=== PATIENT | male | born 1965 | race Hispanic/Latino ===

== ENCOUNTER 2018-09-20 10:40 | Inpatient (IN) | payer SELFPAY ==
--- NOTE | 2018-09-20 12:19 | XRay Report ---
AP CHEST: HISTORY: Altered mental status No comparison. The lungs are mildly hyperinflated. No evidence for pneumonia, pleural effusion or pneumothorax. Heart size and pulmonary vascularity are within normal limits. The bony thorax is grossly intact. IMPRESSION: Mild hyperinflation. No acute process is appreciated.
[2018-09-20] MEDS ORDERED: NACL 0.9% 1000 ML IV ONE (12:27)
[2018-09-20 12:33] LABS: Basophils % (Auto) 0.2 % (0.0-1.8); Hematocrit 38.9 % (35.5-45.6); Hemoglobin 13.1 gm/dl (11.8-15.2); Lymphocytes # (Auto) 0.9 K/mm3 (1.2-5.4); Lymphocytes % (Auto) 7.5 % (13.4-35.0); Mean Corpuscular HGB Conc 34 % (32-34); Mean Corpuscular Volume 93 fl (84-94); Monocytes # (Auto) 1.2 K/mm3 (0.0-0.8); Monocytes % (Auto) 10.3 % (0.0-7.3); Platelet Count 370 K/mm3 (140-440); Red Blood Count 4.18 M/mm3 (3.65-5.03); Red Cell Distribution Width 13.5 % (13.2-15.2)
[2018-09-20 12:43] LABS: Albumin 4.1 g/dL (3.9-5); BUN/Creatinine Ratio 34; Blood Urea Nitrogen 55 mg/dL (9-20); Calcium 9.5 mg/dL (8.4-10.2); Hemolysis Index 5
[2018-09-20 12:48] LABS: Alanine Aminotransferase < 5 units/L (7-56)
[2018-09-20 12:49] LABS: INR 0.99 (0.87-1.13)
[2018-09-20] MEDS ORDERED: MAXIPIME/NS 2 GM/100 ML 2 GM/100 ML BAG IV SCH (13:00)
[2018-09-20 13:31] LABS: Bacteria,Urine 2+ /HPF (Negative); Bilirubin,Urine NEG (Negative); Blood,Urine NEG (Negative); Color,Urine Amber (Yellow); Mucus,Urine 2+ /HPF; Urobilinogen,Urine < 2.0 mg/dL (<2.0)
[2018-09-20 13:37] LABS: Protein,Urine >2000 mg dL mg/dL (Negative)
[2018-09-20 13:38] LABS: Amphetamine Screen,Urine PRESUMPTIVE NEGATIVE; Benzodiazepines Screen,Urine PRESUMPTIVE NEGATIVE; Cannabinoid Screen,Urine PRESUMPTIVE NEGATIVE; Cocaine Screen,Urine PRESUMPTIVE NEGATIVE; Methadone Screen,Urine PRESUMPTIVE NEGATIVE; Opiate Screen,Urine PRESUMPTIVE NEGATIVE
[2018-09-20] MEDS ORDERED: ATIVAN IV ONE (15:20)
--- NOTE | 2018-09-20 15:49 | Emergency Department Report ---
ED General Adult HPI - General Chief complaint: Altered Mental Status Stated complaint: AMS Time Seen by Provider: 09/20/18 11:54 Source: family, EMS Mode of arrival: Stretcher Limitations: Altered Mental Status - History of Present Illness Initial comments: Patient to emergency department via EMS for altered mental status. The patient's sister states the last 2 days the patient has not been his normal self and has had a fever. She states the patient is a daily drinker and last had something to drink a week ago. The patient is not able to add to the history. -: Gradual Severity scale (0 -10): 0 Consistency: constant Improves with: none Worsens with: none Associated Symptoms: denies other symptoms Treatments Prior to Arrival: none - Related Data Allergies Allergy/AdvReac Type Severity Reaction Status Date / Time No Known Allergies Allergy Unverified 09/20/18 11:27 ED Review of Systems ROS: Stated complaint: AMS Other details as noted in HPI Comment: Unobtainable due to pts medical conditions ED Past Medical Hx - Past Medical History Hx COPD: Yes - Social History Smoking Status: Unknown if ever smoked ED Physical Exam - General Limitations: Altered Mental Status General appearance: obtunded - Head Head exam: Present: atraumatic, normocephalic - Eye Eye exam: Present: normal appearance, PERRL, EOMI - ENT ENT exam: Present: mucous membranes dry - Neck Neck exam: Present: normal inspection - Respiratory Respiratory exam: Present: normal lung sounds bilaterally. Absent: respiratory distress, wheezes, rales - Cardiovascular Cardiovascular Exam: Present: normal rhythm, tachycardia. Absent: systolic murmur, diastolic murmur, rubs, gallop - GI/Abdominal GI/Abdominal exam: Present: soft, normal bowel sounds. Absent: distended, tenderness - Rectal Rectal exam: Present: heme (+) stool - Extremities Exam Extremities exam: Present: normal inspection - Back Exam Back exam: Present: normal inspection - Neurological Exam Neurological exam: Present: other (not able to completely assess due to the patient's condition) - Psychiatric Psychiatric exam: Present: other (not able to assess due to the patient's condition) - Skin Skin exam: Present: warm, dry, intact, normal color. Absent: rash ED Course Vital Signs 09/20/18 12:00 Temperature 96.8 F L Pulse Rate 110 H Respiratory 18 Rate Blood Pressure 129/87 [Right] O2 Sat by Pulse 97 Oximetry ED Medical Decision Making - Lab Data Result diagrams: 09/20/18 12:02 09/20/18 12:02 Lab Results 09/20/18 09/20/18 09/20/18 Range/Units 12:02 12:02 12:02 WBC 12.2 H (4.5-11.0) K/mm3 RBC 4.18 (3.65-5.03) M/mm3 Hgb 13.1 (11.8-15.2) gm/dl Hct 38.9 (35.5-45.6) % MCV 93 (84-94) fl MCH 31 (28-32) pg MCHC 34 (32-34) % RDW 13.5 (13.2-15.2) % Plt Count 370 (140-440) K/mm3 Lymph % (Auto) 7.5 L (13.4-35.0) % [place] % (Auto) 10.3 H (0.0-7.3) % Eos % (Auto) 0.0 (0.0-4.3) % Baso % (Auto) 0.2 (0.0-1.8) % Lymph # 0.9 L (1.2-5.4) K/mm3 [place] # 1.2 H (0.0-0.8) K/mm3 Eos # 0.0 (0.0-0.4) K/mm3 Baso # 0.0 (0.0-0.1) K/mm3 Seg Neutrophils % 82.0 H (40.0-70.0) % Seg Neutrophils # 10.0 H (1.8-7.7) K/mm3 PT 13.7 (12.2-14.9) Sec. INR 0.99 (0.87-1.13) APTT (24.2-36.6) Sec. VBG pH (7.320-7.420) Sodium 135 L (137-145) mmol/L Potassium 4.3 (3.6-5.0) mmol/L Chloride 93.2 L (98-107) mmol/L Carbon Dioxide 21 L (22-30) mmol/L Anion Gap 25 mmol/L BUN 55 H (9-20) mg/dL Creatinine 1.6 H (0.8-1.5) mg/dL Estimated GFR 45 ml/min BUN/Creatinine Ratio 34 % Glucose 157 H (75-100) mg/dL Lactic Acid (0.7-2.0) mmol/L Calcium 9.5 (8.4-10.2) mg/dL Magnesium (1.7-2.3) mg/dL Total Bilirubin 0.60 (0.1-1.2) mg/dL AST 7 (5-40) units/L ALT < 5 L (7-56) units/L Alkaline Phosphatase 62 (35-129) units/L Ammonia (25-60) umol/L Total Creatine Kinase 18 L (55-170) units/L Troponin T < 0.010 (0.00-0.029) ng/mL Total Protein 8.4 H (6.3-8.2) g/dL Albumin 4.1 (3.9-5) g/dL Albumin/Globulin Ratio 1.0 % TSH (0.270-4.200) mlU/mL Urine Color (Yellow) Urine Turbidity (Clear) Urine pH (5.0-7.0) Ur Specific [place] (1.003-1.030) Urine Protein (Negative) mg/dL Urine Glucose (UA) (Negative) mg/dL Urine Ketones (Negative) mg/dL Urine Blood (Negative) Urine Nitrite (Negative) Urine Bilirubin (Negative) Urine Urobilinogen (<2.0) mg/dL Ur Leukocyte Esterase (Negative) Urine WBC (Auto) (0.0-6.0) /HPF Urine RBC (Auto) (0.0-6.0) /HPF U Epithel Cells (Auto) (0-13.0) /HPF Urine Bacteria (Auto) (Negative) /HPF Urine WBC Clumps /HPF Urine Mucus /HPF Salicylates (2.8-20.0) mg/dL Urine Opiates Screen Urine Methadone Screen Acetaminophen (10.0-30.0) ug/mL Ur Barbiturates Screen Ur Phencyclidine Scrn Ur Amphetamines Screen U Benzodiazepines Scrn Urine Cocaine Screen U Marijuana (THC) Screen Drugs of Abuse Note Plasma/Serum Alcohol (0-0.07) % 09/20/18 09/20/18 09/20/18 Range/Units 12:02 12:02 12:02 WBC (4.5-11.0) K/mm3 RBC (3.65-5.03) M/mm3 Hgb (11.8-15.2) gm/dl Hct (35.5-45.6) % MCV (84-94) fl MCH (28-32) pg MCHC (32-34) % RDW (13.2-15.2) % Plt Count (140-440) K/mm3 Lymph % (Auto) (13.4-35.0) % [place] % (Auto) (0.0-7.3) % Eos % (Auto) (0.0-4.3) % Baso % (Auto) (0.0-1.8) % Lymph # (1.2-5.4) K/mm3 [place] # (0.0-0.8) K/mm3 Eos # (0.0-0.4) K/mm3 Baso # (0.0-0.1) K/mm3 Seg Neutrophils % (40.0-70.0) % Seg Neutrophils # (1.8-7.7) K/mm3 PT (12.2-14.9) Sec. INR (0.87-1.13) APTT (24.2-36.6) Sec. VBG pH (7.320-7.420) Sodium (137-145) mmol/L Potassium (3.6-5.0) mmol/L Chloride (98-107) mmol/L Carbon Dioxide (22-30) mmol/L Anion Gap mmol/L BUN (9-20) mg/dL Creatinine (0.8-1.5) mg/dL Estimated GFR ml/min BUN/Creatinine Ratio % Glucose (75-100) mg/dL Lactic Acid 3.60 H* (0.7-2.0) mmol/L Calcium (8.4-10.2) mg/dL Magnesium (1.7-2.3) mg/dL Total Bilirubin (0.1-1.2) mg/dL AST (5-40) units/L ALT (7-56) units/L Alkaline Phosphatase (35-129) units/L Ammonia 78.0 H (25-60) umol/L Total Creatine Kinase (55-170) units/L Troponin T (0.00-0.029) ng/mL Total Protein (6.3-8.2) g/dL Albumin (3.9-5) g/dL Albumin/Globulin Ratio % TSH 0.969 (0.270-4.200) mlU/mL Urine Color (Yellow) Urine Turbidity (Clear) Urine pH (5.0-7.0) Ur Specific [place] (1.003-1.030) Urine Protein (Negative) mg/dL Urine Glucose (UA) (Negative) mg/dL Urine Ketones (Negative) mg/dL Urine Blood (Negative) Urine Nitrite (Negative) Urine Bilirubin (Negative) Urine Urobilinogen (<2.0) mg/dL Ur Leukocyte Esterase (Negative) Urine WBC (Auto) (0.0-6.0) /HPF Urine RBC (Auto) (0.0-6.0) /HPF U Epithel Cells (Auto) (0-13.0) /HPF Urine Bacteria (Auto) (Negative) /HPF Urine WBC Clumps /HPF Urine Mucus /HPF Salicylates (2.8-20.0) mg/dL Urine Opiates Screen Urine Methadone Screen Acetaminophen (10.0-30.0) ug/mL Ur Barbiturates Screen Ur Phencyclidine Scrn Ur Amphetamines Screen U Benzodiazepines Scrn Urine Cocaine Screen U Marijuana (THC) Screen Drugs of Abuse Note Plasma/Serum Alcohol (0-0.07) % 09/20/18 09/20/18 09/20/18 Range/Units 12:02 12:02 12:02 WBC (4.5-11.0) K/mm3 RBC (3.65-5.03) M/mm3 Hgb (11.8-15.2) gm/dl Hct (35.5-45.6) % MCV (84-94) fl MCH (28-32) pg MCHC (32-34) % RDW (13.2-15.2) % Plt Count (140-440) K/mm3 Lymph % (Auto) (13.4-35.0) % [place] % (Auto) (0.0-7.3) % Eos % (Auto) (0.0-4.3) % Baso % (Auto) (0.0-1.8) % Lymph # (1.2-5.4) K/mm3 [place] # (0.0-0.8) K/mm3 Eos # (0.0-0.4) K/mm3 Baso # (0.0-0.1) K/mm3 Seg Neutrophils % (40.0-70.0) % Seg Neutrophils # (1.8-7.7) K/mm3 PT (12.2-14.9) Sec. INR (0.87-1.13) APTT (24.2-36.6) Sec. VBG pH (7.320-7.420) Sodium (137-145) mmol/L Potassium (3.6-5.0) mmol/L Chloride (98-107) mmol/L Carbon Dioxide (22-30) mmol/L Anion Gap mmol/L BUN (9-20) mg/dL Creatinine (0.8-1.5) mg/dL Estimated GFR ml/min BUN/Creatinine Ratio % Glucose (75-100) mg/dL Lactic Acid (0.7-2.0) mmol/L Calcium (8.4-10.2) mg/dL Magnesium (1.7-2.3) mg/dL Total Bilirubin (0.1-1.2) mg/dL AST (5-40) units/L ALT (7-56) units/L Alkaline Phosphatase (35-129) units/L Ammonia (25-60) umol/L Total Creatine Kinase (55-170) units/L Troponin T (0.00-0.029) ng/mL Total Protein (6.3-8.2) g/dL Albumin (3.9-5) g/dL Albumin/Globulin Ratio % TSH (0.270-4.200) mlU/mL Urine Color (Yellow) Urine Turbidity (Clear) Urine pH (5.0-7.0) Ur Specific [place] (1.003-1.030) Urine Protein (Negative) mg/dL Urine Glucose (UA) (Negative) mg/dL Urine Ketones (Negative) mg/dL Urine Blood (Negative) Urine Nitrite (Negative) Urine Bilirubin (Negative) Urine Urobilinogen (<2.0) mg/dL Ur Leukocyte Esterase (Negative) Urine WBC (Auto) (0.0-6.0) /HPF Urine RBC (Auto) (0.0-6.0) /HPF U Epithel Cells (Auto) (0-13.0) /HPF Urine Bacteria (Auto) (Negative) /HPF Urine WBC Clumps /HPF Urine Mucus /HPF Salicylates < 0.3 L (2.8-20.0) mg/dL Urine Opiates Screen Urine Methadone Screen Acetaminophen < 5.0 L (10.0-30.0) ug/mL Ur Barbiturates Screen Ur Phencyclidine Scrn Ur Amphetamines Screen U Benzodiazepines Scrn Urine Cocaine Screen U Marijuana (THC) Screen Drugs of Abuse Note Plasma/Serum Alcohol < 0.01 (0-0.07) % 09/20/18 09/20/18 09/20/18 Range/Units 12:02 12:02 12:02 WBC (4.5-11.0) K/mm3 RBC (3.65-5.03) M/mm3 Hgb (11.8-15.2) gm/dl Hct (35.5-45.6) % MCV (84-94) fl MCH (28-32) pg MCHC (32-34) % RDW (13.2-15.2) % Plt Count (140-440) K/mm3 Lymph % (Auto) (13.4-35.0) % [place] % (Auto) (0.0-7.3) % Eos % (Auto) (0.0-4.3) % Baso % (Auto) (0.0-1.8) % Lymph # (1.2-5.4) K/mm3 [place] # (0.0-0.8) K/mm3 Eos # (0.0-0.4) K/mm3 Baso # (0.0-0.1) K/mm3 Seg Neutrophils % (40.0-70.0) % Seg Neutrophils # (1.8-7.7) K/mm3 PT (12.2-14.9) Sec. INR (0.87-1.13) APTT 27.9 (24.2-36.6) Sec. VBG pH 7.392 (7.320-7.420) Sodium (137-145) mmol/L Potassium (3.6-5.0) mmol/L Chloride (98-107) mmol/L Carbon Dioxide (22-30) mmol/L Anion Gap mmol/L BUN (9-20) mg/dL Creatinine (0.8-1.5) mg/dL Estimated GFR ml/min BUN/Creatinine Ratio % Glucose (75-100) mg/dL Lactic Acid (0.7-2.0) mmol/L Calcium (8.4-10.2) mg/dL Magnesium 2.70 H (1.7-2.3) mg/dL Total Bilirubin (0.1-1.2) mg/dL AST (5-40) units/L ALT (7-56) units/L Alkaline Phosphatase (35-129) units/L Ammonia (25-60) umol/L Total Creatine Kinase (55-170) units/L Troponin T (0.00-0.029) ng/mL Total Protein (6.3-8.2) g/dL Albumin (3.9-5) g/dL Albumin/Globulin Ratio % TSH (0.270-4.200) mlU/mL Urine Color (Yellow) Urine Turbidity (Clear) Urine pH (5.0-7.0) Ur Specific [place] (1.003-1.030) Urine Protein (Negative) mg/dL Urine Glucose (UA) (Negative) mg/dL Urine Ketones (Negative) mg/dL Urine Blood (Negative) Urine Nitrite (Negative) Urine Bilirubin (Negative) Urine Urobilinogen (<2.0) mg/dL Ur Leukocyte Esterase (Negative) Urine WBC (Auto) (0.0-6.0) /HPF Urine RBC (Auto) (0.0-6.0) /HPF U Epithel Cells (Auto) (0-13.0) /HPF Urine Bacteria (Auto) (Negative) /HPF Urine WBC Clumps /HPF Urine Mucus /HPF Salicylates (2.8-20.0) mg/dL Urine Opiates Screen Urine Methadone Screen Acetaminophen (10.0-30.0) ug/mL Ur Barbiturates Screen Ur Phencyclidine Scrn Ur Amphetamines Screen U Benzodiazepines Scrn Urine Cocaine Screen U Marijuana (THC) Screen Drugs of Abuse Note Plasma/Serum Alcohol (0-0.07) % 09/20/18 09/20/18 Range/Units 12:46 12:46 WBC (4.5-11.0) K/mm3 RBC (3.65-5.03) M/mm3 Hgb (11.8-15.2) gm/dl Hct (35.5-45.6) % MCV (84-94) fl MCH (28-32) pg MCHC (32-34) % RDW (13.2-15.2) % Plt Count (140-440) K/mm3 Lymph % (Auto) (13.4-35.0) % [place] % (Auto) (0.0-7.3) % Eos % (Auto) (0.0-4.3) % Baso % (Auto) (0.0-1.8) % Lymph # (1.2-5.4) K/mm3 [place] # (0.0-0.8) K/mm3 Eos # (0.0-0.4) K/mm3 Baso # (0.0-0.1) K/mm3 Seg Neutrophils % (40.0-70.0) % Seg Neutrophils # (1.8-7.7) K/mm3 PT (12.2-14.9) Sec. INR (0.87-1.13) APTT (24.2-36.6) Sec. VBG pH (7.320-7.420) Sodium (137-145) mmol/L Potassium (3.6-5.0) mmol/L Chloride (98-107) mmol/L Carbon Dioxide (22-30) mmol/L Anion Gap mmol/L BUN (9-20) mg/dL Creatinine (0.8-1.5) mg/dL Estimated GFR ml/min BUN/Creatinine Ratio % Glucose (75-100) mg/dL Lactic Acid (0.7-2.0) mmol/L Calcium (8.4-10.2) mg/dL Magnesium (1.7-2.3) mg/dL Total Bilirubin (0.1-1.2) mg/dL AST (5-40) units/L ALT (7-56) units/L Alkaline Phosphatase (35-129) units/L Ammonia (25-60) umol/L Total Creatine Kinase (55-170) units/L Troponin T (0.00-0.029) ng/mL Total Protein (6.3-8.2) g/dL Albumin (3.9-5) g/dL Albumin/Globulin Ratio % TSH (0.270-4.200) mlU/mL Urine Color Ele (Yellow) Urine Turbidity Turbid (Clear) Urine pH 8.0 H (5.0-7.0) Ur Specific [place] 1.012 (1.003-1.030) Urine Protein >2000 mg dl (Negative) mg/dL Urine Glucose (UA) Neg (Negative) mg/dL Urine Ketones Neg (Negative) mg/dL Urine Blood Neg (Negative) Urine Nitrite Neg (Negative) Urine Bilirubin Neg (Negative) Urine Urobilinogen < 2.0 (<2.0) mg/dL Ur Leukocyte Esterase Lg (Negative) Urine WBC (Auto) 150.0 H (0.0-6.0) /HPF Urine RBC (Auto) 44.0 (0.0-6.0) /HPF U Epithel Cells (Auto) < 1.0 (0-13.0) /HPF Urine Bacteria (Auto) 2+ (Negative) /HPF Urine WBC Clumps 2+ /HPF Urine Mucus 2+ /HPF Salicylates (2.8-20.0) mg/dL Urine Opiates Screen Presumptive negative Urine Methadone Screen Presumptive negative Acetaminophen (10.0-30.0) ug/mL Ur Barbiturates Screen Presumptive negative Ur Phencyclidine Scrn Presumptive negative Ur Amphetamines Screen Presumptive negative U Benzodiazepines Scrn Presumptive negative Urine Cocaine Screen Presumptive negative U Marijuana (THC) Screen Presumptive negative Drugs of Abuse Note Disclamer Plasma/Serum Alcohol (0-0.07) % - Radiology Data Radiology results: report reviewed - Medical Decision Making No aspirin given due to the patient having rectal bleeding Discussed results with patient Critical Care Time: Yes Critical care time in (mins) excluding proc time.: 45 Critical care attestation.: If time is entered above; I have spent that time in minutes in the direct care of this critically ill patient, excluding procedure time. ED Disposition Clinical Impression: Sepsis, Altered mental status, Rectal bleeding Disposition: [id number] OP ADMIT IP TO THIS HOSP Is pt being admited?: Yes Does the pt Need Aspirin: No Condition: Fair Referrals: PRIMARY CARE, [Primary Care Provider] - 3-5 Days - Assessment Assessment Interval: Baseline - Level of Consciousness 1a. Level of Consciousness: resp stimuli/obtunded - LOC Questions 1b. LOC Questions: answers no questions correctly - LOC Command 1c. LOC Commands: performs no tasks correctly - Best Gaze 2. Best Gaze: normal - Visual 3. Visual: no visual loss - Facial Palsy 4. Facial Palsy: normal symmetrical movement - Motor Arm 5b. Motor Arm Right: no drift 5a. Motor Arm Left: no drift - Motor Leg 6b. Motor Leg Right: no drift 6a. Motor Leg Left: no drift - Limb Ataxia 7. Limb Ataxia: absent - Sensory 8. Sensory: normal - Best Language 9. Best Language: no aphasia - Dysarthria 10. Dysarthria: normal - Extinction and Inattention 11. Extinction/Inattention: no abnormality - Scoring Total Score: 6 Stroke Severity: Moderate Stroke
--- NOTE | 2018-09-20 17:00 | History and Physical Report ---
History of Present Illness Chief complaint: Confused, History of present illness: 52 YO Male with ETOH Dependence, COPD, Malnutrition presents to ED for evaluation. Pt is Lethargic and unable to provide history. Pt history taken from family who is at bedside during exam and interview. As per family, the patient has become increasingly confused and weak over the past 4 days with worsening symptoms over the past 2 days. Pt is currently unable to independently conduct activities of daily living. EMS notified, and upon arrival the patient was found to be in distress and transported to [facility] for further care and evaluation. Pt seen and evaluated in ED and found to have Encephalopathy, Sepsis secondary to UTI, Acute Renal Failure, and Rectal Bleeding. Pt admitted to IMCU and initiated on sepsis protocol. GI consulted. No other history obtainable. Past History Past Medical History: COPD, other (Malnutrition) Past Surgical History: No surgical history, Other (reviewed) Social history: alcohol abuse Family history: no significant family history (reviewed) Medications and Allergies Allergies Allergy/AdvReac Type Severity Reaction Status Date / Time No Known Allergies Allergy Unverified 09/20/18 11:27 Active Meds: Active Medications Cefepime HCl (Maxipime/Ns 2 Gm/100 Ml) 2 gm in 100 mls @ 200 mls/hr IV Q12HR [facility]; Protocol Last Admin: 09/20/18 15:46 Dose: 200 mls/hr Documented by: Review of Systems ROS unobtainable: due to mental status Exam - Constitutional Vitals: Temp Pulse Resp BP Pulse Ox 96.8 F L 110 H 18 129/87 97 09/20/18 12:00 09/20/18 12:00 09/20/18 12:00 09/20/18 12:00 09/20/18 12:00 General appearance: Present: mild distress, cachectic, disheveled, malodorous - EENT Eyes: Present: miosis - Neck Neck: Present: supple, normal ROM - Respiratory Respiratory effort: normal Respiratory: bilateral: CTA - Cardiovascular Rhythm: other (taachycardia) Heart Sounds: Present: S1 & S2. Absent: rub, click - Extremities Extremities: pulses symmetrical, No edema Peripheral Pulses: abnormal (capillary refill greater than 3.5 seconds) - Abdominal General gastrointestinal: Present: soft, non-tender, non-distended, normal bowel sounds Male genitourinary: Present: normal - Integumentary Integumentary: Present: clear, dry, clammy, decreased turgor - Musculoskeletal Musculoskeletal: generalized weakness - Psychiatric Psychiatric: no appropriate mood/affect, no intact judgment & insight, no memory intact - Neurologic Neurologic: no CNII-XII intact, moves all extremities, no gait normal Results - Labs CBC & Chem 7: 09/20/18 12:02 09/20/18 12:02 Labs: Abnormal lab results 09/20/18 09/20/18 09/20/18 Range/Units 12:02 12:02 12:02 WBC 12.2 H (4.5-11.0) K/mm3 Lymph % (Auto) 7.5 L (13.4-35.0) % [place] % (Auto) 10.3 H (0.0-7.3) % Lymph # 0.9 L (1.2-5.4) K/mm3 [place] # 1.2 H (0.0-0.8) K/mm3 Seg Neutrophils % 82.0 H (40.0-70.0) % Seg Neutrophils # 10.0 H (1.8-7.7) K/mm3 Sodium 135 L (137-145) mmol/L Chloride 93.2 L (98-107) mmol/L Carbon Dioxide 21 L (22-30) mmol/L BUN 55 H (9-20) mg/dL Creatinine 1.6 H (0.8-1.5) mg/dL Glucose 157 H (75-100) mg/dL Lactic Acid 3.60 H* (0.7-2.0) mmol/L Magnesium (1.7-2.3) mg/dL ALT < 5 L (7-56) units/L Ammonia (25-60) umol/L Total Creatine Kinase 18 L (55-170) units/L Total Protein 8.4 H (6.3-8.2) g/dL Urine pH (5.0-7.0) Urine WBC (Auto) (0.0-6.0) /HPF Salicylates (2.8-20.0) mg/dL Acetaminophen (10.0-30.0) ug/mL 09/20/18 09/20/18 09/20/18 Range/Units 12:02 12:02 12:02 WBC (4.5-11.0) K/mm3 Lymph % (Auto) (13.4-35.0) % [place] % (Auto) (0.0-7.3) % Lymph # (1.2-5.4) K/mm3 [place] # (0.0-0.8) K/mm3 Seg Neutrophils % (40.0-70.0) % Seg Neutrophils # (1.8-7.7) K/mm3 Sodium (137-145) mmol/L Chloride (98-107) mmol/L Carbon Dioxide (22-30) mmol/L BUN (9-20) mg/dL Creatinine (0.8-1.5) mg/dL Glucose (75-100) mg/dL Lactic Acid (0.7-2.0) mmol/L Magnesium (1.7-2.3) mg/dL ALT (7-56) units/L Ammonia 78.0 H (25-60) umol/L Total Creatine Kinase (55-170) units/L Total Protein (6.3-8.2) g/dL Urine pH (5.0-7.0) Urine WBC (Auto) (0.0-6.0) /HPF Salicylates < 0.3 L (2.8-20.0) mg/dL Acetaminophen < 5.0 L (10.0-30.0) ug/mL 09/20/18 09/20/18 09/20/18 Range/Units 12:02 12:46 16:14 WBC (4.5-11.0) K/mm3 Lymph % (Auto) (13.4-35.0) % [place] % (Auto) (0.0-7.3) % Lymph # (1.2-5.4) K/mm3 [place] # (0.0-0.8) K/mm3 Seg Neutrophils % (40.0-70.0) % Seg Neutrophils # (1.8-7.7) K/mm3 Sodium (137-145) mmol/L Chloride (98-107) mmol/L Carbon Dioxide (22-30) mmol/L BUN (9-20) mg/dL Creatinine (0.8-1.5) mg/dL Glucose (75-100) mg/dL Lactic Acid 2.70 H* (0.7-2.0) mmol/L Magnesium 2.70 H (1.7-2.3) mg/dL ALT (7-56) units/L Ammonia (25-60) umol/L Total Creatine Kinase (55-170) units/L Total Protein (6.3-8.2) g/dL Urine pH 8.0 H (5.0-7.0) Urine WBC (Auto) 150.0 H (0.0-6.0) /HPF Salicylates (2.8-20.0) mg/dL Acetaminophen (10.0-30.0) ug/mL Assessment and Plan - Patient Problems (1) Sepsis Current Visit: Yes Status: Acute Qualifiers: Sepsis type: sepsis due to unspecified organism Qualified Code(s): A41.9 - Sepsis, unspecified organism Plan to address problem: Sepsis protocol: IV antibiotic therapy, monitor uop q shift, serial lactic acid, IVF resuscitation therapy, cbc, cmp, chest x ray, urinalysis. (2) GI bleed Current Visit: Yes Status: Acute Qualifiers: Gastritis type: alcoholic Plan to address problem: GI consulted in ED, IV ppi therapy, cbc, supportive care. (3) Encephalopathy Current Visit: Yes Status: Acute Plan to address problem: CT Head, neuro check, seizure precautions, aspiration precautions, treat sepsis. (4) ARF (acute renal failure) with tubular necrosis Current Visit: Yes Status: Acute Plan to address problem: IVF resuscitation, monitor uop q shift, urine electrolytes, repeat bmp, monitor serum creatnine. (5) UTI (urinary tract infection) Current Visit: Yes Status: Acute Qualifiers: Encounter type: initial encounter Plan to address problem: IV antibiotic therapy, supportive care, cbc, urinalysis (6) EtOH dependence Current Visit: Yes Status: Acute Qualifiers: Substance use status: uncomplicated Qualified Code(s): F10.20 - Alcohol dep endence, uncomplicated Plan to address problem: Thiamine, Folic acid, multivitamin, ciwa protocol. (7) DVT prophylaxis Current Visit: Yes Status: Acute Plan to address problem: SCD to BLE while in bed
[2018-09-20] MEDS ORDERED: PROVENTIL IH PRN (17:02)
[2018-09-20] MEDS ORDERED: SODIUM CHLORIDE FLUSH SYRINGE 10 ML IV PRN (17:02)
[2018-09-20] MEDS ORDERED: ZOFRAN IV PRN (17:02)
[2018-09-20] MEDS ORDERED: VANCOMYCIN 1,250 MG in NACL 0.9% 500 ML 500 ML IV ONE (17:05)
[2018-09-20] MEDS ORDERED: NACL 0.9% 1000 ML 1,000 ML ONE (17:11)
--- NOTE | 2018-09-20 17:24 | Cat Scan Report ---
FINAL REPORT EXAM: CT HEAD/BRAIN WO CON HISTORY: Altered Mental Status TECHNIQUE: CT head without contrast PRIORS: None. FINDINGS: No acute intra-axial or extra-axial hemorrhage is identified. There is no evidence of midline shift or mass effect. The ventricles and sulci are within normal limits. Bond-white matter differentiation is intact. No acute parenchymal abnormalities seen. Bony calvarium is grossly intact. Visualized portions of the mastoids and paranasal sinuses are unre markable. IMPRESSION: Negative CT head
[2018-09-20] MEDS ORDERED: NACL 0.45% 2,000 ML IV SCH (18:00)
[2018-09-20 18:25] LABS: Free T4 (Free Thyroxine) 1.35 ng/dL (0.76-1.46)
[2018-09-20] MEDS ORDERED: VANCOMYCIN 1,250 MG in NACL 0.9% 250ML 250 ML IV ONE (18:30)
[2018-09-20] MEDS: SODIUM CHLORIDE FLUSH SYRINGE 10 ML IV SCH (22:53)
[2018-09-20] MEDS: PROTONIX IV SCH (22:55)
[2018-09-20] MEDS: MAXIPIME/NS 2 GM/100 ML 2 GM/100 ML BAG IV SCH (22:55)
[2018-09-21] MEDS: D5/0.45NS 1,000 ML IV SCH ×2 (02:07→21:58)
[2018-09-21 05:30] LABS: Basophils % (Auto) 0.2 % (0.0-1.8); Eosinophils % (Auto) 0.2 % (0.0-4.3); Hemoglobin 10.7 gm/dl (11.8-15.2); Lymphocytes # (Auto) 1.3 K/mm3 (1.2-5.4); Lymphocytes % (Auto) 13.9 % (13.4-35.0); Mean Corpuscular HGB Conc 34 % (32-34); Mean Corpuscular Volume 93 fl (84-94); Monocytes # (Auto) 1.1 K/mm3 (0.0-0.8); Monocytes % (Auto) 11.8 % (0.0-7.3); Platelet Count 308 K/mm3 (140-440); Red Blood Count 3.38 M/mm3 (3.65-5.03); Red Cell Distribution Width 13.3 % (13.2-15.2)
[2018-09-21 05:39] LABS: Hematocrit 33.4 % (35.5-45.6)
[2018-09-21] MEDS ORDERED: ATIVAN IV ONE ×2 (05:47→17:20)
[2018-09-21] MEDS: MAXIPIME/NS 2 GM/100 ML 2 GM/100 ML BAG IV SCH ×3 (06:01→21:58)
[2018-09-21 06:41] LABS: Albumin 3.1 g/dL (3.9-5); BUN/Creatinine Ratio 47; Blood Urea Nitrogen 52 mg/dL (9-20); Calcium 8.4 mg/dL (8.4-10.2); Hemolysis Index 10
[2018-09-21 06:43] LABS: Alanine Aminotransferase < 5 units/L (7-56)
[2018-09-21] MEDS: SODIUM CHLORIDE FLUSH SYRINGE 10 ML IV SCH ×2 (10:18→22:05)
[2018-09-21] MEDS: PROTONIX IV SCH ×2 (10:18→21:59)
--- NOTE | 2018-09-21 11:24 | Gastroenterology Consultation ---
Addendum entered and electronically signed by MICHELE BEVERLY MD 09/21/18 17:15: Patient seen and examined on 09/21/2018. Agree with A/P as stated. 52 yo male with pmh of ETOH abuse, COPD, and malnutrition admitted for AMS, sepsis, and UTI. GI consulted for reports of rectal bleeding per family report. H/H WNL on admission, now 10.7/33.4 (likely due to hemodilution). No overt signs of GI bleeding. Per nursing, patient had brown stool. - monitor H/H. - no plan for endoscopy at this time. - will follow. Original Note: History of Present Illness - Reason for Consult Consult date: 09/21/18 GI bleeding Requesting physician: RICHARD CORDON - History of Present Illness Patient is a 52 y/o male with PMH of ETOH dependence, COPD, and malnutrition who presented to ED with AMS and was found to have enceophalopathy, sepsis 2/2 UTI, and acute renal failure upon admission. There were also reports of rectal bleeding per family to which GI has been consulted. This morning, patient was resting in bed w/o acute distress but noted to be lethargic and unable to provide history. No family at bedside. History obtained via chart review. No active signs of bleeding overnight or this am to include hematemesis, melena, or hematochezia. BM x 1 this am per nursing with brown stool. Previous GI history unknown. Past History Past Medical History: COPD, other (Malnutrition) Past Surgical History: No surgical history, Other (reviewed) Social history: alcohol abuse Family history: no significant family history (reviewed) Medications and Allergies Allergies Allergy/AdvReac Type Severity Reaction Status Date / Time No Known Allergies Allergy Unverified 09/20/18 11:27 Home Medications Medication Instructions Recorded Confirmed Last Taken Type Unobtainable 09/20/18 09/20/18 Unknown History Active Meds: Active Medications Acetaminophen (Tylenol) 650 mg PO Q4H PRN PRN Reason: Pain MILD(1-3)/Fever >100.5/JARAMILLO Albuterol (Proventil) 2.5 mg IH Q4HRT PRN PRN Reason: Shortness Of Breath Cefepime HCl (Maxipime/Ns 2 Gm/100 Ml) 2 gm in 100 mls @ 200 mls/hr IV Q8HR JOANN; Protocol Last Admin: 09/21/18 06:01 Dose: 200 mls/hr Documented by: Dextrose/Sodium Chloride (D5/[id number]) 1,000 mls @ 50 mls/hr IV DIRECT [facility] Last Admin: 09/21/18 02:07 Dose: 50 mls/hr Documented by: Ondansetron HCl (Zofran) 4 mg IV Q8H PRN PRN Reason: Nausea And Vomiting Pantoprazole Sodium (Protonix) 40 mg IV BID [facility] Last Admin: 09/21/18 10:18 Dose: 40 mg Documented by: Sodium Chloride (Sodium Chloride Flush Syringe 10 Ml) 10 ml IV BID [facility] Last Admin: 09/21/18 10:18 Dose: 10 ml Documented by: Sodium Chloride (Sodium Chloride Flush Syringe 10 Ml) 10 ml IV PRN PRN PRN Reason: LINE FLUSH medications reviewed/updated as required Review of Systems - Review of Systems ROS unobtainable: due to mental status Exam - Constitutional Vital Signs: Temp Pulse Resp BP Pulse Ox 96.8 F L 101 H 21 131/90 99 09/20/18 12:00 09/21/18 04:00 09/21/18 04:00 09/20/18 20:55 09/21/18 07:36 General appearance: no acute distress, other (lethargic) - Respiratory Respiratory: bilateral: CTA (anterior) - Cardiovascular Rhythm: regular Heart Sounds: Present: S1 & S2 - Gastrointestinal General gastrointestinal: Present: soft, non-distended, normal bowel sounds - Labs CBC & Chem 7: 09/21/18 05:00 09/21/18 05:00 Lab Results: Laboratory Results - last 24 hr 09/20/18 09/20/18 09/20/18 12:02 12:02 12:02 WBC 12.2 H RBC 4.18 Hgb 13.1 Hct 38.9 MCV 93 MCH 31 MCHC 34 RDW 13.5 Plt Count 370 Lymph % (Auto) 7.5 L [place] % (Auto) 10.3 H Eos % (Auto) 0.0 Baso % (Auto) 0.2 Lymph # 0.9 L [place] # 1.2 H Eos # 0.0 Baso # 0.0 Seg Neutrophils % 82.0 H Seg Neutrophils # 10.0 H PT 13.7 INR 0.99 APTT VBG pH Sodium 135 L Potassium 4.3 Chloride 93.2 L Carbon Dioxide 21 L Anion Gap 25 BUN 55 H Creatinine 1.6 H Estimated GFR 45 BUN/Creatinine Ratio 34 Glucose 157 H POC Glucose Lactic Acid Calcium 9.5 Magnesium Total Bilirubin 0.60 AST 7 ALT < 5 L Alkaline Phosphatase 62 Ammonia Total Creatine Kinase 18 L Troponin T < 0.010 Total Protein 8.4 H Albumin 4.1 Albumin/Globulin Ratio 1.0 TSH Free T4 Urine Color Urine Turbidity Urine pH Ur Specific [place] Urine Protein Urine Glucose (UA) Urine Ketones Urine Blood Urine Nitrite Urine Bilirubin Urine Urobilinogen Ur Leukocyte Esterase Urine WBC (Auto) Urine RBC (Auto) U Epithel Cells (Auto) Urine Bacteria (Auto) Urine WBC Clumps Urine Mucus Salicylates Urine Opiates Screen Urine Methadone Screen Acetaminophen Ur Barbiturates Screen Ur Phencyclidine Scrn Ur Amphetamines Screen U Benzodiazepines Scrn Urine Cocaine Screen U Marijuana (THC) Screen Drugs of Abuse Note Plasma/Serum Alcohol HIV 1&2 Antibody Rapid HIV P24 Antigen 09/20/18 09/20/18 09/20/18 12:02 12:02 12:02 WBC RBC Hgb Hct MCV MCH MCHC RDW Plt Count Lymph % (Auto) [place] % (Auto) Eos % (Auto) Baso % (Auto) Lymph # [place] # Eos # Baso # Seg Neutrophils % Seg Neutrophils # PT INR APTT VBG pH Sodium Potassium Chloride Carbon Dioxide Anion Gap BUN Creatinine Estimated GFR BUN/Creatinine Ratio Glucose POC Glucose Lactic Acid 3.60 H* Calcium Magnesium Total Bilirubin AST ALT Alkaline Phosphatase Ammonia 78.0 H Total Creatine Kinase Troponin T Total Protein Albumin Albumin/Globulin Ratio TSH 0.969 Free T4 Urine Color Urine Turbidity Urine pH Ur Specific [place] Urine Protein Urine Glucose (UA) Urine Ketones Urine Blood Urine Nitrite Urine Bilirubin Urine Urobilinogen Ur Leukocyte Esterase Urine WBC (Auto) Urine RBC (Auto) U Epithel Cells (Auto) Urine Bacteria (Auto) Urine WBC Clumps Urine Mucus Salicylates Urine Opiates Screen Urine Methadone Screen Acetaminophen Ur Barbiturates Screen Ur Phencyclidine Scrn Ur Amphetamines Screen U Benzodiazepines Scrn Urine Cocaine Screen U Marijuana (THC) Screen Drugs of Abuse Note Plasma/Serum Alcohol HIV 1&2 Antibody Rapid HIV P24 Antigen 09/20/18 09/20/18 09/20/18 12:02 12:02 12:02 WBC RBC Hgb Hct MCV MCH MCHC RDW Plt Count Lymph % (Auto) [place] % (Auto) Eos % (Auto) Baso % (Auto) Lymph # [place] # Eos # Baso # Seg Neutrophils % Seg Neutrophils # PT INR APTT VBG pH Sodium Potassium Chloride Carbon Dioxide Anion Gap BUN Creatinine Estimated GFR BUN/Creatinine Ratio Glucose POC Glucose Lactic Acid Calcium Magnesium Total Bilirubin AST ALT Alkaline Phosphatase Ammonia Total Creatine Kinase Troponin T Total Protein Albumin Albumin/Globulin Ratio TSH Free T4 Urine Color Urine Turbidity Urine pH Ur Specific [place] Urine Protein Urine Glucose (UA) Urine Ketones Urine Blood Urine Nitrite Urine Bilirubin Urine Urobilinogen Ur Leukocyte Esterase Urine WBC (Auto) Urine RBC (Auto) U Epithel Cells (Auto) Urine Bacteria (Auto) Urine WBC Clumps Urine Mucus Salicylates < 0.3 L Urine Opiates Screen Urine Methadone Screen Acetaminophen < 5.0 L Ur Barbiturates Screen Ur Phencyclidine Scrn Ur Amphetamines Screen U Benzodiazepines Scrn Urine Cocaine Screen U Marijuana (THC) Screen Drugs of Abuse Note Plasma/Serum Alcohol < 0.01 HIV 1&2 Antibody Rapid HIV P24 Antigen 09/20/18 09/20/18 09/20/18 12:02 12:02 12:02 WBC RBC Hgb Hct MCV MCH MCHC RDW Plt Count Lymph % (Auto) [place] % (Auto) Eos % (Auto) Baso % (Auto) Lymph # [place] # Eos # Baso # Seg Neutrophils % Seg Neutrophils # PT INR APTT 27.9 VBG pH 7.392 Sodium Potassium Chloride Carbon Dioxide Anion Gap BUN Creatinine Estimated GFR BUN/Creatinine Ratio Glucose POC Glucose Lactic Acid Calcium Magnesium 2.70 H Total Bilirubin AST ALT Alkaline Phosphatase Ammonia Total Creatine Kinase Troponin T Total Protein Albumin Albumin/Globulin Ratio TSH Free T4 Urine Color Urine Turbidity Urine pH Ur Specific [place] Urine Protein Urine Glucose (UA) Urine Ketones Urine Blood Urine Nitrite Urine Bilirubin Urine Urobilinogen Ur Leukocyte Esterase Urine WBC (Auto) Urine RBC (Auto) U Epithel Cells (Auto) Urine Bacteria (Auto) Urine WBC Clumps Urine Mucus Salicylates Urine Opiates Screen Urine Methadone Screen Acetaminophen Ur Barbiturates Screen Ur Phencyclidine Scrn Ur Amphetamines Screen U Benzodiazepines Scrn Urine Cocaine Screen U Marijuana (THC) Screen Drugs of Abuse Note Plasma/Serum Alcohol HIV 1&2 Antibody Rapid HIV P24 Antigen 09/20/18 09/20/18 09/20/18 12:02 12:02 12:46 WBC RBC Hgb Hct MCV MCH MCHC RDW Plt Count Lymph % (Auto) [place] % (Auto) Eos % (Auto) Baso % (Auto) Lymph # [place] # Eos # Baso # Seg Neutrophils % Seg Neutrophils # PT INR APTT VBG pH Sodium Potassium Chloride Carbon Dioxide Anion Gap BUN Creatinine Estimated GFR BUN/Creatinine Ratio Glucose POC Glucose Lactic Acid Calcium Magnesium Total Bilirubin AST ALT Alkaline Phosphatase Ammonia Total Creatine Kinase Troponin T Total Protein Albumin Albumin/Globulin Ratio TSH 0.966 Free T4 1.35 Urine Color Ele Urine Turbidity Turbid Urine pH 8.0 H Ur Specific [place] 1.012 Urine Protein >2000 mg dl Urine Glucose (UA) Neg Urine Ketones Neg Urine Blood Neg Urine Nitrite Neg Urine Bilirubin Neg Urine Urobilinogen < 2.0 Ur Leukocyte Esterase Lg Urine WBC (Auto) 150.0 H Urine RBC (Auto) 44.0 U Epithel Cells (Auto) < 1.0 Urine Bacteria (Auto) 2+ Urine WBC Clumps 2+ Urine Mucus 2+ Salicylates Urine Opiates Screen Urine Methadone Screen Acetaminophen Ur Barbiturates Screen Ur Phencyclidine Scrn Ur Amphetamines Screen U Benzodiazepines Scrn Urine Cocaine Screen U Marijuana (THC) Screen Drugs of Abuse Note Plasma/Serum Alcohol HIV 1&2 Antibody Rapid Non react HIV P24 Antigen Non react 09/20/18 09/20/18 09/20/18 12:46 16:14 21:29 WBC RBC Hgb Hct MCV MCH MCHC RDW Plt Count Lymph % (Auto) [place] % (Auto) Eos % (Auto) Baso % (Auto) Lymph # [place] # Eos # Baso # Seg Neutrophils % Seg Neutrophils # PT INR APTT VBG pH Sodium Potassium Chloride Carbon Dioxide Anion Gap BUN Creatinine Estimated GFR BUN/Creatinine Ratio Glucose POC Glucose Lactic Acid 2.70 H* 1.40 Calcium Magnesium Total Bilirubin AST ALT Alkaline Phosphatase Ammonia Total Creatine Kinase Troponin T Total Protein Albumin Albumin/Globulin Ratio TSH Free T4 Urine Color Urine Turbidity Urine pH Ur Specific [place] Urine Protein Urine Glucose (UA) Urine Ketones Urine Blood Urine Nitrite Urine Bilirubin Urine Urobilinogen Ur Leukocyte Esterase Urine WBC (Auto) Urine RBC (Auto) U Epithel Cells (Auto) Urine Bacteria (Auto) Urine WBC Clumps Urine Mucus Salicylates Urine Opiates Screen Presumptive negative Urine Methadone Screen Presumptive negative Acetaminophen Ur Barbiturates Screen Presumptive negative Ur Phencyclidine Scrn Presumptive negative Ur Amphetamines Screen Presumptive negative U Benzodiazepines Scrn Presumptive negative Urine Cocaine Screen Presumptive negative U Marijuana (THC) Screen Presumptive negative Drugs of Abuse Note Disclamer Plasma/Serum Alcohol HIV 1&2 Antibody Rapid HIV P24 Antigen 09/20/18 09/20/18 09/21/18 22:57 23:04 05:00 WBC 9.4 RBC 3.38 L Hgb 10.7 L Hct 33.4 L MCV 93 MCH 32 MCHC 34 RDW 13.3 Plt Count 308 Lymph % (Auto) 13.9 [place] % (Auto) 11.8 H Eos % (Auto) 0.2 Baso % (Auto) 0.2 Lymph # 1.3 [place] # 1.1 H Eos # 0.0 Baso # 0.0 Seg Neutrophils % 73.9 H Seg Neutrophils # 7.0 PT INR APTT VBG pH Sodium Potassium Chloride Carbon Dioxide Anion Gap BUN Creatinine Estimated GFR BUN/Creatinine Ratio Glucose POC Glucose 108 H Lactic Acid 1.50 Calcium Magnesium Total Bilirubin AST ALT Alkaline Phosphatase Ammonia Total Creatine Kinase Troponin T Total Protein Albumin Albumin/Globulin Ratio TSH Free T4 Urine Color Urine Turbidity Urine pH Ur Specific [place] Urine Protein Urine Glucose (UA) Urine Ketones Urine Blood Urine Nitrite Urine Bilirubin Urine Urobilinogen Ur Leukocyte Esterase Urine WBC (Auto) Urine RBC (Auto) U Epithel Cells (Auto) Urine Bacteria (Auto) Urine WBC Clumps Urine Mucus Salicylates Urine Opiates Screen Urine Methadone Screen Acetaminophen Ur Barbiturates Screen Ur Phencyclidine Scrn Ur Amphetamines Screen U Benzodiazepines Scrn Urine Cocaine Screen U Marijuana (THC) Screen Drugs of Abuse Note Plasma/Serum Alcohol HIV 1&2 Antibody Rapid HIV P24 Antigen 09/21/18 05:00 WBC RBC Hgb Hct MCV MCH MCHC RDW Plt Count Lymph % (Auto) [place] % (Auto) Eos % (Auto) Baso % (Auto) Lymph # [place] # Eos # Baso # Seg Neutrophils % Seg Neutrophils # PT INR APTT VBG pH Sodium 136 L Potassium 4.1 Chloride 103.7 Carbon Dioxide 19 L Anion Gap 17 BUN 52 H Creatinine 1.1 Estimated GFR > 60 BUN/Creatinine Ratio 47 Glucose 126 H POC Glucose Lactic Acid Calcium 8.4 Magnesium Total Bilirubin 0.50 AST 8 ALT < 5 L Alkaline Phosphatase 45 Ammonia Total Creatine Kinase Troponin T Total Protein 6.5 D Albumin 3.1 L Albumin/Globulin Ratio 0.9 TSH Free T4 Urine Color Urine Turbidity Urine pH Ur Specific [place] Urine Protein Urine Glucose (UA) Urine Ketones Urine Blood Urine Nitrite Urine Bilirubin Urine Urobilinogen Ur Leukocyte Esterase Urine WBC (Auto) Urine RBC (Auto) U Epithel Cells (Auto) Urine Bacteria (Auto) Urine WBC Clumps Urine Mucus Salicylates Urine Opiates Screen Urine Methadone Screen Acetaminophen Ur Barbiturates Screen Ur Phencyclidine Scrn Ur Amphetamines Screen U Benzodiazepines Scrn Urine Cocaine Screen U Marijuana (THC) Screen Drugs of Abuse Note Plasma/Serum Alcohol HIV 1&2 Antibody Rapid HIV P24 Antigen Assessment and Plan 1.GI bleed 2.rectal bleeding? -plt WNL, INR 0.99 -LFTs WNL -H/H WNL on admission, now 10.7/33.4 (likely due to hemodilution) -continue to monitor H/H and transfuse as needed -no active signs of bleeding overnight or this am- BM x 1 this am with brown stool per nursing -no plan for scope at this time, unless overt bleeding develops -continue PPI and supportive care -will follow 2.encephalopathy 3.ARF 4.UTI 5.ETOH dependence- watch for signs of withdrawal
--- NOTE | 2018-09-21 12:22 | Progress Note ---
Assessment and Plan / Sepsis due to UTI Sepsis protocol: IV antibiotic therapy, monitor uop q shift, serial lactic acid, IVF resuscitation therapy, follow Cx. / GI bleed: GI consulted in ED, IV ppi therapy, monitor cbc, supportive care. / Encephalopathy likely from alcohol withdrawl CT Head, neuro check, seizure precautions, aspiration precautions, treat sepsis. / ARF (acute renal failure) with vasomotor nephropathy IVF resuscitation, monitor uop q shift, urine electrolytes, repeat bmp, monitor serum creatnine. / UTI (urinary tract infection) IV antibiotic therapy, supportive care, urine Cx / EtOH dependence Thiamine, Folic acid, multivitamin, ciwa protocol. / DVT prophylaxis SCD to BLE while in bed Brief History: Patient is a 52 y/o male with PMH of ETOH dependence, COPD, and malnutrition who presented to ED with AMS and was found to have enceophalopathy, sepsis 2/2 UTI, and acute renal failure upon admission. There were also reports of rectal bleeding per family, GI has been consulted. Patient on alcohol withdrawl protocol, restraint, no plan for endoscopy now. Subjective Date of service: 09/21/18 Interval history: patient seen and examined confused, on restraint no family at bedside Objective - Constitutional Vitals: Vital Signs - 12hr 09/21/18 09/21/18 09/21/18 04:00 07:36 11:26 Temperature 98.3 F Pulse Rate [ 101 H From Monitor] Respiratory 21 Rate O2 Sat by Pulse 98 99 Oximetry General appearance: Present: no acute distress - EENT Eyes: PERRL, EOM intact ENT: hearing intact, clear oral mucosa Ears: bilateral: normal - Neck Neck: supple, normal ROM - Respiratory Respiratory effort: normal Respiratory: bilateral: CTA - Cardiovascular Rhythm: regular Heart Sounds: Present: S1 & S2. Absent: gallop, rub Extremities: pulses intact, No edema, normal color, Full ROM - Gastrointestinal General gastrointestinal: Present: soft, non-tender, non-distended, normal bowel sounds - Integumentary Integumentary: clear, warm, dry - Musculoskeletal Musculoskeletal: 1, strength equal bilaterally - Neurologic Neurologic: moves all extremities - Psychiatric Psychiatric: no appropriate mood/affect, no intact judgment & insight, no memory intact, other (confused) - Labs CBC & Chem 7: 09/22/18 05:19 09/22/18 05:19 Labs: Abnormal lab results 09/20/18 09/20/18 09/20/18 Range/Units 12:02 12:02 12:02 WBC 12.2 H (4.5-11.0) K/mm3 RBC (3.65-5.03) M/mm3 Hgb (11.8-15.2) gm/dl Hct (35.5-45.6) % Lymph % (Auto) 7.5 L (13.4-35.0) % [place] % (Auto) 10.3 H (0.0-7.3) % Lymph # 0.9 L (1.2-5.4) K/mm3 [place] # 1.2 H (0.0-0.8) K/mm3 Seg Neutrophils % 82.0 H (40.0-70.0) % Seg Neutrophils # 10.0 H (1.8-7.7) K/mm3 Sodium 135 L (137-145) mmol/L Chloride 93.2 L (98-107) mmol/L Carbon Dioxide 21 L (22-30) mmol/L BUN 55 H (9-20) mg/dL Creatinine 1.6 H (0.8-1.5) mg/dL Glucose 157 H (75-100) mg/dL POC Glucose (70-105) Lactic Acid 3.60 H* (0.7-2.0) mmol/L Magnesium (1.7-2.3) mg/dL ALT < 5 L (7-56) units/L Ammonia (25-60) umol/L Total Creatine Kinase 18 L (55-170) units/L Total Protein 8.4 H (6.3-8.2) g/dL Albumin (3.9-5) g/dL Urine pH (5.0-7.0) Urine WBC (Auto) (0.0-6.0) /HPF Salicylates (2.8-20.0) mg/dL Acetaminophen (10.0-30.0) ug/mL 09/20/18 09/20/18 09/20/18 Range/Units 12:02 12:02 12:02 WBC (4.5-11.0) K/mm3 RBC (3.65-5.03) M/mm3 Hgb (11.8-15.2) gm/dl Hct (35.5-45.6) % Lymph % (Auto) (13.4-35.0) % [place] % (Auto) (0.0-7.3) % Lymph # (1.2-5.4) K/mm3 [place] # (0.0-0.8) K/mm3 Seg Neutrophils % (40.0-70.0) % Seg Neutrophils # (1.8-7.7) K/mm3 Sodium (137-145) mmol/L Chloride (98-107) mmol/L Carbon Dioxide (22-30) mmol/L BUN (9-20) mg/dL Creatinine (0.8-1.5) mg/dL Glucose (75-100) mg/dL POC Glucose (70-105) Lactic Acid (0.7-2.0) mmol/L Magnesium (1.7-2.3) mg/dL ALT (7-56) units/L Ammonia 78.0 H (25-60) umol/L Total Creatine Kinase (55-170) units/L Total Protein (6.3-8.2) g/dL Albumin (3.9-5) g/dL Urine pH (5.0-7.0) Urine WBC (Auto) (0.0-6.0) /HPF Salicylates < 0.3 L (2.8-20.0) mg/dL Acetaminophen < 5.0 L (10.0-30.0) ug/mL 09/20/18 09/20/18 09/20/18 Range/Units 12:02 12:46 16:14 WBC (4.5-11.0) K/mm3 RBC (3.65-5.03) M/mm3 Hgb (11.8-15.2) gm/dl Hct (35.5-45.6) % Lymph % (Auto) (13.4-35.0) % [place] % (Auto) (0.0-7.3) % Lymph # (1.2-5.4) K/mm3 [place] # (0.0-0.8) K/mm3 Seg Neutrophils % (40.0-70.0) % Seg Neutrophils # (1.8-7.7) K/mm3 Sodium (137-145) mmol/L Chloride (98-107) mmol/L Carbon Dioxide (22-30) mmol/L BUN (9-20) mg/dL Creatinine (0.8-1.5) mg/dL Glucose (75-100) mg/dL POC Glucose (70-105) Lactic Acid 2.70 H* (0.7-2.0) mmol/L Magnesium 2.70 H (1.7-2.3) mg/dL ALT (7-56) units/L Ammonia (25-60) umol/L Total Creatine Kinase (55-170) units/L Total Protein (6.3-8.2) g/dL Albumin (3.9-5) g/dL Urine pH 8.0 H (5.0-7.0) Urine WBC (Auto) 150.0 H (0.0-6.0) /HPF Salicylates (2.8-20.0) mg/dL Acetaminophen (10.0-30.0) ug/mL 09/20/18 09/21/18 09/21/18 Range/Units 23:04 05:00 05:00 WBC (4.5-11.0) K/mm3 RBC 3.38 L (3.65-5.03) M/mm3 Hgb 10.7 L (11.8-15.2) gm/dl Hct 33.4 L (35.5-45.6) % Lymph % (Auto) (13.4-35.0) % [place] % (Auto) 11.8 H (0.0-7.3) % Lymph # (1.2-5.4) K/mm3 [place] # 1.1 H (0.0-0.8) K/mm3 Seg Neutrophils % 73.9 H (40.0-70.0) % Seg Neutrophils # (1.8-7.7) K/mm3 Sodium 136 L (137-145) mmol/L Chloride (98-107) mmol/L Carbon Dioxide 19 L (22-30) mmol/L BUN 52 H (9-20) mg/dL Creatinine (0.8-1.5) mg/dL Glucose 126 H (75-100) mg/dL POC Glucose 108 H (70-105) Lactic Acid (0.7-2.0) mmol/L Magnesium (1.7-2.3) mg/dL ALT < 5 L (7-56) units/L Ammonia (25-60) umol/L Total Creatine Kinase (55-170) units/L Total Protein (6.3-8.2) g/dL Albumin 3.1 L (3.9-5) g/dL Urine pH (5.0-7.0) Urine WBC (Auto) (0.0-6.0) /HPF Salicylates (2.8-20.0) mg/dL Acetaminophen (10.0-30.0) ug/mL
[2018-09-21] MEDS ORDERED: LIBRIUM PO PRN (18:02)
[2018-09-21] MEDS ORDERED: ATIVAN IV PRN (18:02)
[2018-09-21] MEDS: ATIVAN IV PRN (23:56)
[2018-09-22] MEDS: MAXIPIME/NS 2 GM/100 ML 2 GM/100 ML BAG IV SCH ×3 (05:39→22:04)
[2018-09-22 05:51] LABS: Basophils % (Auto) 0.5 % (0.0-1.8); Eosinophils # (Auto) 0.1 K/mm3 (0.0-0.4); Eosinophils % (Auto) 0.8 % (0.0-4.3); Hematocrit 30.8 % (35.5-45.6); Hemoglobin 10.5 gm/dl (11.8-15.2); Lymphocytes # (Auto) 1.3 K/mm3 (1.2-5.4); Lymphocytes % (Auto) 18.6 % (13.4-35.0); Mean Corpuscular HGB Conc 34 % (32-34); Mean Corpuscular Volume 93 fl (84-94); Monocytes % (Auto) 14.3 % (0.0-7.3); Platelet Count 321 K/mm3 (140-440); Red Blood Count 3.31 M/mm3 (3.65-5.03); Red Cell Distribution Width 13.5 % (13.2-15.2)
[2018-09-22] MEDS: ATIVAN IV PRN ×3 (06:04→20:31)
[2018-09-22 06:25] LABS: Calcium 8.6 mg/dL (8.4-10.2)
[2018-09-22] MEDS: PROTONIX IV SCH ×2 (09:41→22:04)
[2018-09-22] MEDS: SODIUM CHLORIDE FLUSH SYRINGE 10 ML IV SCH ×2 (09:42→22:05)
--- NOTE | 2018-09-22 12:50 | Gastroenterology Progress Note ---
Assessment and Plan 1. Hematochezia 2. Anemia 3. Sepsis -H/H stable and no signs of bleeding since admission. manage conservatively from gi stand point unless pt shows signs of further bleeding. eventual colonoscopy can be done as outpatient once acute medical issues resolve. will sign off, please call as needed or with questions. Subjective Date of service: 09/22/18 Principal diagnosis: hematochezia Interval history: pt seen and examined; non-verbal, in restraints, unable to provide history. no bleeding episodes since admission. Objective - Exam Narrative Exam: Gen: in restraints, non verbal CV: RRR Lungs: CTAB Abd: soft, nt, nd, +bs - Constitutional Vitals: Temp Pulse Resp BP Pulse Ox 98.4 F 97 H 20 142/93 95 09/22/18 12:00 09/22/18 11:04 09/22/18 11:04 09/22/18 10:31 09/22/18 11:04 - Labs CBC & Chem 7: 09/22/18 05:19 09/22/18 05:19 Labs: Laboratory Results - last 24 hr 09/21/18 09/21/18 09/22/18 16:06 21:58 05:19 WBC 7.2 RBC 3.31 L Hgb 10.5 L Hct 30.8 L MCV 93 MCH 32 MCHC 34 RDW 13.5 Plt Count 321 Lymph % (Auto) 18.6 [place] % (Auto) 14.3 H Eos % (Auto) 0.8 Baso % (Auto) 0.5 Lymph # 1.3 [place] # 1.0 H Eos # 0.1 Baso # 0.0 Seg Neutrophils % 65.8 Seg Neutrophils # 4.7 Sodium Potassium Chloride Carbon Dioxide Anion Gap BUN Creatinine Estimated GFR BUN/Creatinine Ratio Glucose POC Glucose 124 H 112 H Calcium 09/22/18 05:19 WBC RBC Hgb Hct MCV MCH MCHC RDW Plt Count Lymph % (Auto) [place] % (Auto) Eos % (Auto) Baso % (Auto) Lymph # [place] # Eos # Baso # Seg Neutrophils % Seg Neutrophils # Sodium 141 Potassium 3.7 Chloride 107.0 Carbon Dioxide 18 L Anion Gap 20 BUN 50 H Creatinine 1.3 Estimated GFR 58 BUN/Creatinine Ratio 38 Glucose 118 H POC Glucose Calcium 8.6
--- NOTE | 2018-09-22 13:08 | Progress Note ---
Assessment and Plan / Sepsis due to UTI Sepsis protocol: cont IV antibiotic therapy, monitor uop q shift, IVF resuscitation therapy, follow Cx. / GI bleed: GI consulted in ED, cont IV ppi therapy, stable h/h, supportive care. No plan for endoscopy / Acute toxic Encephalopathy likely from alcohol withdrawl CT Head no acute finding, cont neuro check, seizure precautions, CIWA protocol, aspiration precautions, treat sepsis. / ARF (acute renal failure) with vasomotor nephropathy cont IVF resuscitation, monitor uop q shift, repeat bmp in the am / UTI (urinary tract infection) cont IV antibiotic therapy, supportive care, urine Cx / EtOH dependence with intoxication, now on withdrawal has h/o heavy alcohol drinking cont Thiamine, Folic acid, multivitamin, CIWA protocol with librium and ativan as needed. / DVT prophylaxis SCD to BLE while in bed Brief History: Patient is a 52 y/o male with PMH of ETOH dependence, COPD, and malnutrition who presented to ED with AMS and was found to have encephalopathy, sepsis 2/2 UTI, and acute renal failure upon admission. There were also reports of rectal bleeding per family, GI has been consulted. Patient on alcohol withdrawl protocol, restraint, no plan for endoscopy now. Physical exam: General appearance: Present: no acute distress - EENT Eyes: PERRL, EOM intact ENT: hearing intact, clear oral mucosa Ears: bilateral: normal - Neck Neck: supple, normal ROM - Respiratory Respiratory effort: normal Respiratory: bilateral: CTA - Cardiovascular Rhythm: regular Heart Sounds: Present: S1 & S2. Absent: gallop, rub Extremities: pulses intact, No edema, normal color, Full ROM - Gastrointestinal General gastrointestinal: Present: soft, non-tender, non-distended, normal bowel sounds - Integumentary Integumentary: clear, warm, dry - Musculoskeletal Musculoskeletal: 1, strength equal bilaterally - Neurologic Neurologic: moves all extremities - Psychiatric Psychiatric: no appropriate mood/affect, no intact judgment & insight, no memory intact, other (confused) Subjective Date of service: 09/22/18 Principal diagnosis: hematochezia Interval history: patient seen and examined remained confused, on restraint no family at bedside Objective - Constitutional Vitals: Vital Signs - 12hr 09/22/18 09/22/18 09/22/18 01:11 01:21 01:31 Temperature Pulse Rate 86 84 88 Pulse Rate [ From Monitor] Respiratory 20 18 19 Rate Blood Pressure 138/88 138/88 138/88 O2 Sat by Pulse 97 98 97 Oximetry 09/22/18 09/22/18 09/22/18 01:41 01:51 02:00 Temperature Pulse Rate 88 97 H 110 H Pulse Rate [ From Monitor] Respiratory 17 19 29 H Rate Blood Pressure 138/88 138/88 157/85 O2 Sat by Pulse 99 98 97 Oximetry 09/22/18 09/22/18 09/22/18 02:11 02:21 02:31 Temperature Pulse Rate 87 86 89 Pulse Rate [ From Monitor] Respiratory 18 17 17 Rate Blood Pressure 157/85 157/85 157/85 O2 Sat by Pulse 98 99 98 Oximetry 09/22/18 09/22/18 09/22/18 02:41 02:51 03:01 Temperature Pulse Rate 92 H 84 83 Pulse Rate [ From Monitor] Respiratory 18 16 16 Rate Blood Pressure 157/85 157/85 143/89 O2 Sat by Pulse 98 98 99 Oximetry 09/22/18 09/22/18 09/22/18 03:11 03:21 03:31 Temperature Pulse Rate 88 87 85 Pulse Rate [ From Monitor] Respiratory 18 17 15 Rate Blood Pressure 143/89 143/89 143/89 O2 Sat by Pulse 98 99 98 Oximetry 09/22/18 09/22/18 09/22/18 03:41 03:51 04:00 Temperature 98.5 F Pulse Rate 87 104 H 96 H Pulse Rate [ 97 H From Monitor] Respiratory 17 18 Rate Blood Pressure 143/89 143/89 141/93 O2 Sat by Pulse 98 98 97 Oximetry 09/22/18 09/22/18 09/22/18 04:11 04:21 04:31 Temperature Pulse Rate 87 98 H 97 H Pulse Rate [ From Monitor] Respiratory 17 16 23 Rate Blood Pressure 141/93 141/93 141/93 O2 Sat by Pulse 98 98 98 Oximetry 09/22/18 09/22/18 09/22/18 04:41 04:51 05:00 Temperature Pulse Rate 91 H 92 H 98 H Pulse Rate [ From Monitor] Respiratory 15 19 13 Rate Blood Pressure 141/93 141/93 146/90 O2 Sat by Pulse 98 98 97 Oximetry 09/22/18 09/22/18 09/22/18 05:11 05:21 05:31 Temperature Pulse Rate 92 H 91 H 103 H Pulse Rate [ From Monitor] Respiratory 20 22 14 Rate Blood Pressure 146/90 146/90 146/90 O2 Sat by Pulse 98 97 97 Oximetry 09/22/18 09/22/18 09/22/18 05:41 05:51 06:00 Temperature Pulse Rate 89 91 H 96 H Pulse Rate [ From Monitor] Respiratory 14 13 19 Rate Blood Pressure 146/90 146/90 151/94 O2 Sat by Pulse 98 97 98 Oximetry 09/22/18 09/22/18 09/22/18 06:11 06:21 06:31 Temperature Pulse Rate 97 H 98 H 85 Pulse Rate [ From Monitor] Respiratory 19 28 H 18 Rate Blood Pressure 151/94 151/94 151/94 O2 Sat by Pulse 96 98 98 Oximetry 09/22/18 09/22/18 09/22/18 06:41 06:51 07:00 Temperature Pulse Rate 89 87 87 Pulse Rate [ From Monitor] Respiratory 17 20 18 Rate Blood Pressure 151/94 151/94 136/85 O2 Sat by Pulse 97 96 92 Oximetry 09/22/18 09/22/18 09/22/18 07:10 07:21 07:31 Temperature Pulse Rate 88 101 H 91 H Pulse Rate [ From Monitor] Respiratory 17 20 16 Rate Blood Pressure 136/85 136/85 136/85 O2 Sat by Pulse 96 97 97 Oximetry 09/22/18 09/22/18 09/22/18 07:41 07:51 08:00 Temperature Pulse Rate 87 101 H 93 H Pulse Rate [ 97 H From Monitor] Respiratory 19 21 19 Rate Blood Pressure 136/85 136/85 150/95 O2 Sat by Pulse 99 98 98 Oximetry 09/22/18 09/22/18 09/22/18 08:11 08:21 08:31 Temperature Pulse Rate 86 96 H 96 H Pulse Rate [ From Monitor] Respiratory 17 19 20 Rate Blood Pressure 150/95 150/95 150/95 O2 Sat by Pulse 98 96 100 Oximetry 09/22/18 09/22/18 09/22/18 08:41 08:51 09:00 Temperature Pulse Rate 89 95 H 105 H Pulse Rate [ From Monitor] Respiratory 21 19 20 Rate Blood Pressure 150/95 150/95 142/101 O2 Sat by Pulse 98 99 Oximetry 09/22/18 09/22/18 09/22/18 09:11 09:21 09:31 Temperature Pulse Rate 91 H 113 H 109 H Pulse Rate [ From Monitor] Respiratory 17 26 H 22 Rate Blood Pressure 142/101 142/101 142/101 O2 Sat by Pulse 97 97 97 Oximetry 09/22/18 09/22/18 09/22/18 09:41 09:51 10:00 Temperature Pulse Rate 99 H 91 H 109 H Pulse Rate [ From Monitor] Respiratory 20 17 20 Rate Blood Pressure 142/101 142/101 142/93 O2 Sat by Pulse 99 100 98 Oximetry 09/22/18 09/22/18 09/22/18 10:11 10:21 10:31 Temperature Pulse Rate 88 96 H 90 Pulse Rate [ From Monitor] Respiratory 18 18 17 Rate Blood Pressure 142/93 142/93 142/93 O2 Sat by Pulse 96 93 96 Oximetry 09/22/18 09/22/18 11:04 12:00 Temperature 98.4 F Pulse Rate Pulse Rate [ 97 H From Monitor] Respiratory 20 Rate Blood Pressure O2 Sat by Pulse 95 Oximetry - Labs CBC & Chem 7: 09/22/18 05:19 09/22/18 05:19 Labs: Abnormal lab results 09/21/18 09/21/18 09/22/18 Range/Units 16:06 21:58 05:19 RBC 3.31 L (3.65-5.03) M/mm3 Hgb 10.5 L (11.8-15.2) gm/dl Hct 30.8 L (35.5-45.6) % [place] % (Auto) 14.3 H (0.0-7.3) % [place] # 1.0 H (0.0-0.8) K/mm3 Carbon Dioxide (22-30) mmol/L BUN (9-20) mg/dL Glucose (75-100) mg/dL POC Glucose 124 H 112 H (70-105) 09/22/18 Range/Units 05:19 RBC (3.65-5.03) M/mm3 Hgb (11.8-15.2) gm/dl Hct (35.5-45.6) % [place] % (Auto) (0.0-7.3) % [place] # (0.0-0.8) K/mm3 Carbon Dioxide 18 L (22-30) mmol/L BUN 50 H (9-20) mg/dL Glucose 118 H (75-100) mg/dL POC Glucose (70-105)
[2018-09-22] MEDS: LIBRIUM PO SCH ×2 (16:40→22:04)
[2018-09-23] MEDS: LIBRIUM PO SCH ×4 (03:32→22:18)
[2018-09-23] MEDS: MAXIPIME/NS 2 GM/100 ML 2 GM/100 ML BAG IV SCH ×3 (05:19→22:16)
[2018-09-23] MEDS: PROTONIX IV SCH ×2 (09:05→22:16)
[2018-09-23] MEDS: SODIUM CHLORIDE FLUSH SYRINGE 10 ML IV SCH ×2 (09:05→22:19)
--- NOTE | 2018-09-23 10:20 | Progress Note ---
Assessment and Plan / Sepsis due to UTI Sepsis protocol: cont IV antibiotic therapy, monitor uop q shift, IVF resuscitation therapy, follow Cx. / GI bleed: GI consulted in ED, cont IV ppi therapy, stable h/h, supportive care. No plan for endoscopy / Acute toxic Encephalopathy likely from alcohol withdrawl CT Head no acute finding, cont neuro check, seizure precautions, CIWA protocol, aspiration precautions, treat sepsis. / ARF (acute renal failure) with vasomotor nephropathy cont IVF resuscitation, monitor uop q shift, repeat bmp in the am / UTI (urinary tract infection) cont IV antibiotic therapy, supportive care, urine Cx / EtOH dependence with intoxication, now on withdrawal has h/o heavy alcohol drinking cont Thiamine, Folic acid, multivitamin, CIWA protocol with librium and ativan as needed. / DVT prophylaxis SCD to BLE while in bed Brief History: Patient is a 52 y/o male with PMH of ETOH dependence, COPD, and malnutrition who presented to ED with AMS and was found to have encephalopathy, sepsis 2/2 UTI, and acute renal failure upon admission. There were also reports of rectal bleeding per family, GI has been consulted. Patient on alcohol withdrawl protocol, restraint, no plan for endoscopy now. Physical exam: General appearance: Present: no acute distress - EENT Eyes: PERRL, EOM intact ENT: hearing intact, clear oral mucosa Ears: bilateral: normal - Neck Neck: supple, normal ROM - Respiratory Respiratory effort: normal Respiratory: bilateral: CTA - Cardiovascular Rhythm: regular Heart Sounds: Present: S1 & S2. Absent: gallop, rub Extremities: pulses intact, No edema, normal color, Full ROM - Gastrointestinal General gastrointestinal: Present: soft, non-tender, non-distended, normal bowel sounds - Integumentary Integumentary: clear, warm, dry - Musculoskeletal Musculoskeletal: 1, strength equal bilaterally - Neurologic Neurologic: moves all extremities - Psychiatric Psychiatric: no appropriate mood/affect, no intact judgment & insight, no memory intact, other (confused) Subjective Date of service: 09/23/18 Principal diagnosis: hematochezia Interval history: patient seen and examined remained confused, off restraint no family at bedside, communicates but not coherent Objective - Constitutional Vitals: Vital Signs - 12hr 09/22/18 09/22/18 09/22/18 22:21 22:31 22:41 Temperature Pulse Rate 107 H 102 H 105 H Pulse Rate [ From Monitor] Respiratory 19 16 16 Rate Blood Pressure 144/88 144/88 144/88 O2 Sat by Pulse 96 94 96 Oximetry 09/22/18 09/22/18 09/22/18 22:51 23:00 23:11 Temperature Pulse Rate 99 H 99 H 110 H Pulse Rate [ From Monitor] Respiratory 19 18 22 Rate Blood Pressure 144/88 133/91 133/91 O2 Sat by Pulse 97 97 96 Oximetry 09/22/18 09/22/18 09/22/18 23:21 23:31 23:41 Temperature Pulse Rate Pulse Rate [ From Monitor] Respiratory Rate Blood Pressure 133/91 133/91 133/91 O2 Sat by Pulse 98 98 97 Oximetry 09/22/18 09/23/18 09/23/18 23:51 00:00 00:11 Temperature Pulse Rate 113 H 119 H 106 H Pulse Rate [ 99 H From Monitor] Respiratory 21 18 Rate Blood Pressure 133/91 120/84 120/84 O2 Sat by Pulse 98 96 97 Oximetry 09/23/18 09/23/18 09/23/18 00:21 00:31 00:41 Temperature Pulse Rate 114 H 108 H 119 H Pulse Rate [ From Monitor] Respiratory 24 17 19 Rate Blood Pressure 120/84 120/84 120/84 O2 Sat by Pulse 96 96 96 Oximetry 09/23/18 09/23/18 09/23/18 00:51 01:00 01:11 Temperature Pulse Rate 101 H 106 H 98 H Pulse Rate [ From Monitor] Respiratory 15 25 H 19 Rate Blood Pressure 120/84 171/129 171/129 O2 Sat by Pulse 95 96 94 Oximetry 09/23/18 09/23/18 09/23/18 01:21 01:31 01:41 Temperature Pulse Rate 96 H 90 100 H Pulse Rate [ From Monitor] Respiratory 20 21 22 Rate Blood Pressure 171/129 171/129 171/129 O2 Sat by Pulse 89 89 92 Oximetry 09/23/18 09/23/18 09/23/18 01:51 02:00 02:11 Temperature Pulse Rate 102 H 123 H 104 H Pulse Rate [ From Monitor] Respiratory 22 32 H 20 Rate Blood Pressure 171/129 137/84 137/84 O2 Sat by Pulse 90 90 97 Oximetry 09/23/18 09/23/18 09/23/18 02:21 02:31 02:41 Temperature Pulse Rate 109 H 110 H 99 H Pulse Rate [ From Monitor] Respiratory 20 23 21 Rate Blood Pressure 137/84 137/84 137/84 O2 Sat by Pulse 95 93 93 Oximetry 09/23/18 09/23/18 09/23/18 02:51 03:00 03:11 Temperature Pulse Rate 112 H 105 H 114 H Pulse Rate [ From Monitor] Respiratory 19 15 16 Rate Blood Pressure 137/84 140/85 140/85 O2 Sat by Pulse 93 94 95 Oximetry 09/23/18 09/23/18 09/23/18 03:21 03:31 03:41 Temperature Pulse Rate 113 H 110 H 120 H Pulse Rate [ From Monitor] Respiratory 22 21 24 Rate Blood Pressure 140/85 140/85 140/85 O2 Sat by Pulse 98 97 95 Oximetry 09/23/18 09/23/18 09/23/18 03:51 04:00 04:01 Temperature Pulse Rate 113 H 123 H Pulse Rate [ 114 H From Monitor] Respiratory 19 20 18 Rate Blood Pressure 140/85 134/94 O2 Sat by Pulse 97 97 97 Oximetry 09/23/18 09/23/18 09/23/18 04:11 04:21 04:31 Temperature Pulse Rate 117 H 115 H 119 H Pulse Rate [ From Monitor] Respiratory 21 19 24 Rate Blood Pressure 134/94 134/94 134/94 O2 Sat by Pulse 97 93 98 Oximetry 09/23/18 09/23/18 09/23/18 04:41 04:51 05:00 Temperature Pulse Rate 111 H 102 H 106 H Pulse Rate [ From Monitor] Respiratory 23 24 30 H Rate Blood Pressure 134/94 134/94 147/87 O2 Sat by Pulse 97 98 97 Oximetry 09/23/18 09/23/18 09/23/18 05:11 05:21 05:31 Temperature Pulse Rate 109 H 93 H 111 H Pulse Rate [ From Monitor] Respiratory 18 14 22 Rate Blood Pressure 147/87 147/87 147/87 O2 Sat by Pulse 99 94 94 Oximetry 09/23/18 09/23/18 09/23/18 05:41 05:51 06:00 Temperature Pulse Rate 97 H 103 H Pulse Rate [ From Monitor] Respiratory 17 14 Rate Blood Pressure 147/87 147/87 154/81 O2 Sat by Pulse 97 97 96 Oximetry 09/23/18 09/23/18 09/23/18 06:11 06:21 06:31 Temperature Pulse Rate 101 H 114 H 102 H Pulse Rate [ From Monitor] Respiratory 20 15 19 Rate Blood Pressure 154/81 154/81 154/81 O2 Sat by Pulse 97 97 97 Oximetry 09/23/18 09/23/18 09/23/18 06:41 06:51 07:01 Temperature Pulse Rate 100 H 99 H 102 H Pulse Rate [ From Monitor] Respiratory 19 23 19 Rate Blood Pressure 154/81 154/81 150/126 O2 Sat by Pulse 96 96 78 L Oximetry 09/23/18 09/23/18 09/23/18 07:11 07:21 07:31 Temperature Pulse Rate 99 H 110 H 101 H Pulse Rate [ From Monitor] Respiratory 19 25 H 24 Rate Blood Pressure 150/126 150/126 150/126 O2 Sat by Pulse 97 96 97 Oximetry 09/23/18 09/23/18 09/23/18 07:41 07:51 08:00 Temperature 98.3 F Pulse Rate 117 H 115 H Pulse Rate [ 114 H From Monitor] Respiratory 23 25 H 20 Rate Blood Pressure 150/126 150/126 O2 Sat by Pulse 99 98 97 Oximetry 09/23/18 09/23/18 09/23/18 08:01 08:11 08:21 Temperature Pulse Rate 113 H 106 H 105 H Pulse Rate [ From Monitor] Respiratory 21 15 19 Rate Blood Pressure 138/60 138/60 138/60 O2 Sat by Pulse 99 97 99 Oximetry 09/23/18 09/23/18 09/23/18 08:30 08:31 08:41 Temperature Pulse Rate 99 H 111 H Pulse Rate [ From Monitor] Respiratory 14 22 Rate Blood Pressure 138/60 138/60 O2 Sat by Pulse 97 97 99 Oximetry 09/23/18 09/23/18 08:51 09:01 Temperature Pulse Rate 98 H 98 H Pulse Rate [ From Monitor] Respiratory 16 17 Rate Blood Pressure 138/60 152/90 O2 Sat by Pulse 97 98 Oximetry - Labs CBC & Chem 7: 09/22/18 05:19 09/22/18 05:19
[2018-09-23] MEDS: ATIVAN IV PRN ×2 (10:44→17:21)
[2018-09-24] MEDS: ATIVAN IV PRN ×3 (01:43→21:51)
[2018-09-24] MEDS: LIBRIUM PO SCH ×3 (02:55→13:52)
[2018-09-24] MEDS: MAXIPIME/NS 2 GM/100 ML 2 GM/100 ML BAG IV SCH ×3 (05:40→21:48)
[2018-09-24] MEDS: PROTONIX IV SCH (10:20)
[2018-09-24] MEDS: SODIUM CHLORIDE FLUSH SYRINGE 10 ML IV SCH ×2 (10:21→21:51)
[2018-09-24] MEDS: D5/0.45NS 1,000 ML IV SCH (12:36)
--- NOTE | 2018-09-24 17:06 | Progress Note ---
Assessment and Plan / Sepsis due to UTI Sepsis protocol: cont IV antibiotic therapy, monitor uop q shift, IVF resuscitation therapy, follow Cx. / GI bleed: GI consulted in ED, cont IV ppi therapy, stable h/h, supportive care. No plan for endoscopy / Acute toxic Encephalopathy likely from alcohol withdrawal CT Head no acute finding, cont neuro check, seizure precautions, CIWA protocol, aspiration precautions, treat sepsis. Consult psych / ARF (acute renal failure) with vasomotor nephropathy cont IVF resuscitation, monitor uop q shift, repeat bmp in the am / UTI (urinary tract infection) cont IV antibiotic therapy, supportive care, urine Cx / EtOH dependence with intoxication, now on withdrawal has h/o heavy alcohol drinking cont Thiamine, Folic acid, multivitamin, CIWA protocol with librium and ativan as needed. will also consult psych / DVT prophylaxis SCD to BLE while in bed Brief History: Patient is a 52 y/o male with PMH of ETOH dependence, COPD, and malnutrition who presented to ED with AMS and was found to have encephalopathy, sepsis 2/2 UTI, and acute renal failure upon admission. There were also reports of rectal bleeding per family, GI has been consulted. Patient on alcohol withdrawal protocol, restraint, no plan for endoscopy now. Physical exam: General appearance: Present: no acute distress - EENT Eyes: PERRL, EOM intact ENT: hearing intact, clear oral mucosa Ears: bilateral: normal - Neck Neck: supple, normal ROM - Respiratory Respiratory effort: normal Respiratory: bilateral: CTA - Cardiovascular Rhythm: regular Heart Sounds: Present: S1 & S2. Absent: gallop, rub Extremities: pulses intact, No edema, normal color, Full ROM - Gastrointestinal General gastrointestinal: Present: soft, non-tender, non-distended, normal bowel sounds - Integumentary Integumentary: clear, warm, dry - Musculoskeletal Musculoskeletal: 1, strength equal bilaterally - Neurologic Neurologic: moves all extremities - Psychiatric Psychiatric: no appropriate mood/affect, no intact judgment & insight, no memory intact, other (confused) Subjective Date of service: 09/24/18 Principal diagnosis: hematochezia Interval history: patient seen and examined remained confused, off restraint no family at bedside, communicates but not coherent Objective - Constitutional Vitals: Vital Signs - 12hr 09/24/18 09/24/18 09/24/18 05:11 05:21 05:31 Temperature Pulse Rate 100 H 94 H 93 H Pulse Rate [ From Monitor] Respiratory 20 22 24 Rate Blood Pressure 131/93 131/93 131/93 O2 Sat by Pulse 99 82 L Oximetry 09/24/18 09/24/18 09/24/18 05:41 05:51 06:00 Temperature Pulse Rate 91 H 98 H 94 H Pulse Rate [ From Monitor] Respiratory 17 19 17 Rate Blood Pressure 135/93 135/93 123/81 O2 Sat by Pulse 97 97 98 Oximetry 09/24/18 09/24/18 09/24/18 06:11 06:21 06:31 Temperature Pulse Rate 97 H 101 H 96 H Pulse Rate [ From Monitor] Respiratory 20 14 17 Rate Blood Pressure 123/81 123/81 123/81 O2 Sat by Pulse 97 97 Oximetry 09/24/18 09/24/18 09/24/18 06:41 06:51 07:00 Temperature Pulse Rate 97 H 89 95 H Pulse Rate [ From Monitor] Respiratory 21 17 19 Rate Blood Pressure 123/81 123/81 127/81 O2 Sat by Pulse 97 99 Oximetry 09/24/18 09/24/18 09/24/18 07:11 07:21 07:31 Temperature Pulse Rate 92 H 103 H 95 H Pulse Rate [ From Monitor] Respiratory 17 23 19 Rate Blood Pressure 127/81 127/81 127/81 O2 Sat by Pulse 99 100 100 Oximetry 09/24/18 09/24/18 09/24/18 07:39 07:41 07:51 Temperature Pulse Rate 100 H 96 H Pulse Rate [ From Monitor] Respiratory 14 19 Rate Blood Pressure 127/81 127/81 O2 Sat by Pulse 97 100 100 Oximetry 09/24/18 09/24/18 09/24/18 08:00 08:11 08:21 Temperature 97.7 F Pulse Rate 99 H 98 H 98 H Pulse Rate [ 98 H From Monitor] Respiratory 19 19 19 Rate Blood Pressure 123/82 123/82 123/82 O2 Sat by Pulse 99 100 100 Oximetry 09/24/18 09/24/18 09/24/18 08:31 08:41 08:51 Temperature Pulse Rate 98 H Pulse Rate [ From Monitor] Respiratory 17 Rate Blood Pressure 123/82 123/82 123/82 O2 Sat by Pulse 98 97 99 Oximetry 09/24/18 09/24/18 09/24/18 09:01 09:11 09:21 Temperature Pulse Rate Pulse Rate [ From Monitor] Respiratory Rate Blood Pressure 127/81 127/81 127/81 O2 Sat by Pulse 98 98 99 Oximetry 09/24/18 09/24/18 09/24/18 09:31 09:41 09:51 Temperature Pulse Rate 113 H 106 H Pulse Rate [ From Monitor] Respiratory 18 19 Rate Blood Pressure 127/81 127/81 127/81 O2 Sat by Pulse 99 100 98 Oximetry 09/24/18 09/24/18 09/24/18 10:00 10:11 10:21 Temperature Pulse Rate 108 H 106 H 106 H Pulse Rate [ From Monitor] Respiratory 23 19 18 Rate Blood Pressure 126/76 126/76 126/76 O2 Sat by Pulse 98 97 100 Oximetry 09/24/18 09/24/18 09/24/18 10:31 10:41 10:51 Temperature Pulse Rate 109 H 101 H 100 H Pulse Rate [ From Monitor] Respiratory 20 16 16 Rate Blood Pressure 126/76 126/76 126/76 O2 Sat by Pulse 100 99 98 Oximetry 09/24/18 09/24/18 09/24/18 11:00 11:11 11:21 Temperature Pulse Rate 103 H 101 H 101 H Pulse Rate [ From Monitor] Respiratory 19 20 19 Rate Blood Pressure 114/74 114/74 114/74 O2 Sat by Pulse 98 98 98 Oximetry 09/24/18 09/24/18 09/24/18 11:31 11:41 11:51 Temperature Pulse Rate 104 H 112 H 113 H Pulse Rate [ From Monitor] Respiratory 20 14 22 Rate Blood Pressure 114/74 114/74 114/74 O2 Sat by Pulse 98 99 100 Oximetry 09/24/18 09/24/18 09/24/18 12:00 12:11 12:21 Temperature 100.1 F H Pulse Rate 110 H 111 H 102 H Pulse Rate [ 100 H From Monitor] Respiratory 18 14 16 Rate Blood Pressure 129/85 129/85 129/85 O2 Sat by Pulse 100 99 100 Oximetry 09/24/18 09/24/18 09/24/18 12:31 12:41 12:51 Temperature Pulse Rate 103 H 114 H 109 H Pulse Rate [ From Monitor] Respiratory 21 16 22 Rate Blood Pressure 129/85 129/85 129/85 O2 Sat by Pulse 100 97 97 Oximetry 09/24/18 09/24/18 09/24/18 13:00 13:11 13:21 Temperature Pulse Rate 113 H 100 H 99 H Pulse Rate [ From Monitor] Respiratory 23 18 15 Rate Blood Pressure 113/83 113/83 113/83 O2 Sat by Pulse 98 99 99 Oximetry 09/24/18 09/24/18 09/24/18 13:31 13:41 13:51 Temperature Pulse Rate 99 H 104 H 104 H Pulse Rate [ From Monitor] Respiratory 19 19 39 H Rate Blood Pressure 113/83 113/83 113/83 O2 Sat by Pulse 99 98 99 Oximetry 09/24/18 09/24/18 09/24/18 14:00 14:11 14:21 Temperature Pulse Rate 102 H 106 H 104 H Pulse Rate [ From Monitor] Respiratory 17 20 22 Rate Blood Pressure 118/91 118/91 118/91 O2 Sat by Pulse 99 100 100 Oximetry 09/24/18 16:00 Temperature 98.2 F Pulse Rate Pulse Rate [ From Monitor] Respiratory Rate Blood Pressure O2 Sat by Pulse Oximetry - Labs CBC & Chem 7: 09/22/18 05:19 09/22/18 05:19 Labs: Abnormal lab results 09/23/18 Range/Units 21:11 POC Glucose 128 H (70-105)
[2018-09-24 17:37] LABS: Hematocrit 34.4 % (35.5-45.6); Hemoglobin 11.9 gm/dl (11.8-15.2); Mean Corpuscular HGB Conc 35 % (32-34); Mean Corpuscular Volume 94 fl (84-94); Platelet Count 407 K/mm3 (140-440); Red Blood Count 3.68 M/mm3 (3.65-5.03); Red Cell Distribution Width 13.5 % (13.2-15.2)
[2018-09-24 17:50] LABS: BUN/Creatinine Ratio 28; Blood Urea Nitrogen 34 mg/dL (9-20); Calcium 8.8 mg/dL (8.4-10.2); Hemolysis Index 9
--- NOTE | 2018-09-24 20:40 | Cat Scan Report ---
FINAL REPORT PROCEDURE: CT HEAD/BRAIN WO CON TECHNIQUE: Computerized tomography of the head was performed without contrast material. HISTORY: fall COMPARISON: No prior studies are available for comparison. FINDINGS: Skull and scalp: Normal. Paranasal sinuses: Normal. Ventricles and subarachnoid spaces: Normal. Cerebrum: No evidence of hemorrhage, acute infarction or mass. Mild atrophy with periventricular and deep white matter diminished densities. Cerebellum and brainstem: No evidence of hemorrhage, acute infarction or mass. Vasculature: Normal. Comments: None. IMPRESSION: Involutional change with atrophy and microangiopathy. No hemorrhage.
[2018-09-24] MEDS: PREVACID SOLUTAB FEEDTUBE SCH (21:50)
[2018-09-25] MEDS: ATIVAN IV PRN (02:21)
[2018-09-25] MEDS: SODIUM CHLORIDE FLUSH SYRINGE 10 ML IV SCH ×3 (02:26→21:51)
[2018-09-25] MEDS: MAXIPIME/NS 2 GM/100 ML 2 GM/100 ML BAG IV SCH ×3 (06:33→21:49)
[2018-09-25] MEDS: LIBRIUM PO SCH ×3 (06:39→22:03)
[2018-09-25] MEDS: PREVACID SOLUTAB FEEDTUBE SCH ×2 (09:32→21:50)
--- NOTE | 2018-09-25 13:18 | Progress Note ---
Assessment and Plan Assessment and plan: Patient is a 52 yo man with PMH of ETOH dependence, COPD, and malnutrition who presented to ED with AMS and was found to have encephalopathy, sepsis 2/2 UTI, and acute renal failure upon admission. There were also reports of rectal bleeding per family, GI evaluated. Patient on alcohol withdrawal protocol, restraints, no plan for endoscopy now. / EtOH dependence with intoxication, now in withdrawal: treat with Ciwa, did poorly with PT, has h/o heavy alcohol drinking, cont Thiamine, Folic acid, multivitamin, CIWA protocol with librium and ativan as needed. /Sepsis due to UTI with suspected obstruction/Urinary retention: Sepsis protocol, cont IV antibiotic therapy, monitor uop q shift, IVF resuscitation therapy, follow Cx, ordered renal u/s /GI bleed, resolved: GI consulted in ED, cont ppi therapy, stable h/h, supporti ve care. No plan for endoscopy /Hematuria with Urinary Obstruction/Retention, PVR over 900 on 09/25/18, cadena placed, now gross hematuria: consulted Urology /Acute toxic Encephalopathy, likely from alcohol withdrawal, CT Head no acute finding, cont neuro check, seizure precautions, CIWA protocol, aspiration precautions, treat sepsis. Consult psych /ARF (acute renal failure) with vasomotor nephropathy: cont IVF resuscitation, monitor uop q shift, repeat bmp in the am, renal u/s pending /UTI (urinary tract infection) complicated/complex: cont IV antibiotic therapy, supportive care, urine Cx /Severe malnutrition most likely, poa: Dental Practitioner consult /DVT prophylaxis: SCD to BLE while in bed D/W sister Christ [phone] who is visiting History Interval history: Patient was seen and examined. Follow-up on current diagnosis of AMS, still present. Overnight uneventful. Patient is confused. Imaging, nursing note, chart, labs and old chart reviewed. Discussed with patient. Hospitalist Physical - Physical exam Narrative exam: Gen: thin frail, NAD, Awake, Alert but confused HEENT: NCAT, EOMI, PERRL, OP Clear Neck: supple, no adenopathy, no thyromegaly, no JVD CVS/Heart: Regular tachycardia, normal S1S2, pulses present bilaterally Chest/Lungs: CTA B, Symmetrical chest expansion, good air entry bilaterally GI/Abdomen: soft, NTND, good bowel sounds, no guarding or rebound /Bladder: no suprapubic tenderness, no CVA or paraspinal tenderness Extermity/Skin: no c/c/e, no obvious rash MSK: FROM x 4 Neuro: CN 2-12 grossly intact, doesn't follow commands Psych: confused, ignores instructions - Constitutional Vitals: Temp Pulse Resp BP Pulse Ox 98.6 F 89 16 118/82 98 09/25/18 04:08 09/25/18 12:41 09/25/18 12:41 09/25/18 12:41 09/25/18 12:41 General appearance: Present: no acute distress Results - Labs CBC & Chem 7: 09/24/18 17:09 09/24/18 17:09 Labs: Laboratory Last Values WBC 9.0 K/mm3 (4.5-11.0) 09/24/18 17:09 RBC 3.68 M/mm3 (3.65-5.03) 09/24/18 17:09 Hgb 11.9 gm/dl (11.8-15.2) 09/24/18 17:09 Hct 34.4 % (35.5-45.6) L 09/24/18 17:09 MCV 94 fl (84-94) 09/24/18 17:09 MCH 32 pg (28-32) 09/24/18 17:09 MCHC 35 % (32-34) H 09/24/18 17:09 RDW 13.5 % (13.2-15.2) 09/24/18 17:09 Plt Count 407 K/mm3 (140-440) 09/24/18 17:09 Lymph % (Auto) 18.6 % (13.4-35.0) 09/22/18 05:19 [place] % (Auto) 14.3 % (0.0-7.3) H 09/22/18 05:19 Eos % (Auto) 0.8 % (0.0-4.3) 09/22/18 05:19 Baso % (Auto) 0.5 % (0.0-1.8) 09/22/18 05:19 Lymph # 1.3 K/mm3 (1.2-5.4) 09/22/18 05:19 [place] # 1.0 K/mm3 (0.0-0.8) H 09/22/18 05:19 Eos # 0.1 K/mm3 (0.0-0.4) 09/22/18 05:19 Baso # 0.0 K/mm3 (0.0-0.1) 09/22/18 05:19 Seg Neutrophils % 65.8 % (40.0-70.0) 09/22/18 05:19 Seg Neutrophils # 4.7 K/mm3 (1.8-7.7) 09/22/18 05:19 PT 13.7 Sec. (12.2-14.9) 09/20/18 12:02 INR 0.99 (0.87-1.13) 09/20/18 12:02 APTT 27.9 Sec. (24.2-36.6) 09/20/18 12:02 VBG pH 7.392 (7.320-7.420) 09/20/18 12:02 Sodium 137 mmol/L (137-145) 09/24/18 17:09 Potassium 3.7 mmol/L (3.6-5.0) 09/24/18 17:09 Chloride 104.4 mmol/L (98-107) 09/24/18 17:09 Carbon Dioxide 17 mmol/L (22-30) L 09/24/18 17:09 Anion Gap 19 mmol/L 09/24/18 17:09 BUN 34 mg/dL (9-20) H 09/24/18 17:09 Creatinine 1.2 mg/dL (0.8-1.5) 09/24/18 17:09 Estimated GFR > 60 ml/min 09/24/18 17:09 BUN/Creatinine Ratio 28 % 09/24/18 17:09 Glucose 132 mg/dL (75-100) H 09/24/18 17:09 POC Glucose 134 (70-105) H 09/25/18 09:24 Lactic Acid 1.50 mmol/L (0.7-2.0) 09/20/18 22:57 Calcium 8.8 mg/dL (8.4-10.2) 09/24/18 17:09 Magnesium 2.70 mg/dL (1.7-2.3) H 09/20/18 12:02 Total Bilirubin 0.50 mg/dL (0.1-1.2) 09/21/18 05:00 AST 8 units/L (5-40) 09/21/18 05:00 ALT < 5 units/L (7-56) L 09/21/18 05:00 Alkaline Phosphatase 45 units/L (35-129) 09/21/18 05:00 Ammonia 78.0 umol/L (25-60) H 09/20/18 12:02 Total Creatine Kinase 18 units/L (55-170) L 09/20/18 12:02 Troponin T < 0.010 ng/mL (0.00-0.029) 09/20/18 12:02 Total Protein 6.5 g/dL (6.3-8.2) D 09/21/18 05:00 Albumin 3.1 g/dL (3.9-5) L 09/21/18 05:00 Albumin/Globulin Ratio 0.9 % 09/21/18 05:00 TSH 0.966 mlU/mL (0.270-4.200) 09/20/18 12:02 Free T4 1.35 ng/dL (0.76-1.46) 09/20/18 12:02 Urine Color Ele (Yellow) 09/20/18 12:46 Urine Turbidity Turbid (Clear) 09/20/18 12:46 Urine pH 8.0 (5.0-7.0) H 09/20/18 12:46 Ur Specific [place] 1.012 (1.003-1.030) 09/20/18 12:46 Urine Protein >2000 mg dl mg/dL (Negative) 09/20/18 12:46 Urine Glucose (UA) Neg mg/dL (Negative) 09/20/18 12:46 Urine Ketones Neg mg/dL (Negative) 09/20/18 12:46 Urine Blood Neg (Negative) 09/20/18 12:46 Urine Nitrite Neg (Negative) 09/20/18 12:46 Urine Bilirubin Neg (Negative) 09/20/18 12:46 Urine Urobilinogen < 2.0 mg/dL (<2.0) 09/20/18 12:46 Ur Leukocyte Esterase Lg (Negative) 09/20/18 12:46 Urine WBC (Auto) 150.0 /HPF (0.0-6.0) H 09/20/18 12:46 Urine RBC (Auto) 44.0 /HPF (0.0-6.0) 09/20/18 12:46 U Epithel Cells (Auto) < 1.0 /HPF (0-13.0) 09/20/18 12:46 Urine Bacteria (Auto) 2+ /HPF (Negative) 09/20/18 12:46 Urine WBC Clumps 2+ /HPF 09/20/18 12:46 Urine Mucus 2+ /HPF 09/20/18 12:46 Salicylates < 0.3 mg/dL (2.8-20.0) L 09/20/18 12:02 Urine Opiates Screen Presumptive negative 09/20/18 12:46 Urine Methadone Screen Presumptive negative 09/20/18 12:46 Acetaminophen < 5.0 ug/mL (10.0-30.0) L 09/20/18 12:02 Ur Barbiturates Screen Presumptive negative 09/20/18 12:46 Ur Phencyclidine Scrn Presumptive negative 09/20/18 12:46 Ur Amphetamines Screen Presumptive negative 09/20/18 12:46 U Benzodiazepines Scrn Presumptive negative 09/20/18 12:46 Urine Cocaine Screen Presumptive negative 09/20/18 12:46 U Marijuana (THC) Screen Presumptive negative 09/20/18 12:46 Drugs of Abuse Note Disclamer 09/20/18 12:46 Plasma/Serum Alcohol < 0.01 % (0-0.07) 09/20/18 12:02 HIV 1&2 Antibody Rapid Non react (Non React) 09/20/18 12:02 HIV P24 Antigen Non react (Non React) 09/20/18 12:02
[2018-09-25 20:20] LABS: Bilirubin,Urine NEG (Negative); Blood,Urine LG (Negative); Color,Urine Red (Yellow); Urobilinogen,Urine < 2.0 mg/dL (<2.0)
[2018-09-25 20:22] LABS: RBC,Urine > 182.0 /HPF (0.0-6.0); WBC,Urine > 182.0 /HPF (0.0-6.0)
[2018-09-25] MEDS: TYLENOL PO PRN (21:50)
[2018-09-26] MEDS: LIBRIUM PO SCH ×4 (03:30→23:27)
[2018-09-26] MEDS: MAXIPIME/NS 2 GM/100 ML 2 GM/100 ML BAG IV SCH ×2 (05:46→14:11)
[2018-09-26] MEDS: PREVACID SOLUTAB FEEDTUBE SCH ×2 (10:52→23:27)
[2018-09-26] MEDS: SODIUM CHLORIDE FLUSH SYRINGE 10 ML IV SCH ×2 (10:56→23:28)
--- NOTE | 2018-09-26 14:38 | Progress Note ---
Assessment and Plan Assessment and plan: Patient is a 52 yo man with PMH of ETOH dependence, COPD, and malnutrition who presented to ED with AMS and was found to have encephalopathy, sepsis 2/2 UTI, and acute renal failure upon admission. There were also reports of rectal bleeding per family, GI evaluated. Patient on alcohol withdrawal protocol, restraints, no plan for endoscopy now. / EtOH dependence with intoxication, now in withdrawal: treat with Ciwa, did poorly with PT, has h/o heavy alcohol drinking, cont Thiamine, Folic acid, multivitamin, CIWA protocol with librium and ativan as needed. /Sepsis due to UTI with suspected obstruction/Urinary retention: Sepsis protocol, cont IV antibiotic therapy, monitor uop q shift, IVF resuscitation therapy, follow Cx, ordered renal u/s /GI bleed, resolved: GI consulted in ED, cont ppi therapy, stable h/h, supporti ve care. No plan for endoscopy /Hematuria with Urinary Obstruction/Retention, PVR over 900 on 09/25/18, cadena placed, now gross hematuria: consulted Urology /Acute toxic Encephalopathy, likely from alcohol withdrawal, CT Head no acute finding, cont neuro check, seizure precautions, CIWA protocol, aspiration precautions, treat sepsis. Consult psych /ARF (acute renal failure) with vasomotor nephropathy: cont IVF resuscitation, monitor uop q shift, repeat bmp in the am, renal u/s pending /UTI (urinary tract infection) complicated/complex: cont IV antibiotic therapy, supportive care, urine Cx /Severe malnutrition most likely, poa: Loan Officer Assistant consult /DVT prophylaxis: SCD to BLE while in bed D/W sister Christ [phone] who is visiting History Interval history: Patient was seen and examined. Follow-up on current diagnosis of AMS, still present. Overnight uneventful. Patient is confused. Imaging, nursing note, chart, labs and old chart reviewed. Discussed with patient. Hospitalist Physical - Physical exam Narrative exam: Gen: thin frail, NAD, Awake, Alert but confused HEENT: NCAT, EOMI, PERRL, OP Clear Neck: supple, no adenopathy, no thyromegaly, no JVD CVS/Heart: Regular tachycardia, normal S1S2, pulses present bilaterally Chest/Lungs: CTA B, Symmetrical chest expansion, good air entry bilaterally GI/Abdomen: soft, NTND, good bowel sounds, no guarding or rebound /Bladder: no suprapubic tenderness, no CVA or paraspinal tenderness Extermity/Skin: no c/c/e, no obvious rash MSK: FROM x 4 Neuro: CN 2-12 grossly intact, doesn't follow commands Psych: confused, ignores instructions - Constitutional Vitals: Temp Pulse Resp BP Pulse Ox 97.6 F 77 20 121/80 96 09/26/18 05:08 09/26/18 05:08 09/26/18 10:00 09/26/18 05:08 09/26/18 09:07 General appearance: Present: no acute distress Results - Labs CBC & Chem 7: 09/24/18 17:09 09/24/18 17:09 Labs: Laboratory Last Values WBC 9.0 K/mm3 (4.5-11.0) 09/24/18 17:09 RBC 3.68 M/mm3 (3.65-5.03) 09/24/18 17:09 Hgb 11.9 gm/dl (11.8-15.2) 09/24/18 17:09 Hct 34.4 % (35.5-45.6) L 09/24/18 17:09 MCV 94 fl (84-94) 09/24/18 17:09 MCH 32 pg (28-32) 09/24/18 17:09 MCHC 35 % (32-34) H 09/24/18 17:09 RDW 13.5 % (13.2-15.2) 09/24/18 17:09 Plt Count 407 K/mm3 (140-440) 09/24/18 17:09 Lymph % (Auto) 18.6 % (13.4-35.0) 09/22/18 05:19 [place] % (Auto) 14.3 % (0.0-7.3) H 09/22/18 05:19 Eos % (Auto) 0.8 % (0.0-4.3) 09/22/18 05:19 Baso % (Auto) 0.5 % (0.0-1.8) 09/22/18 05:19 Lymph # 1.3 K/mm3 (1.2-5.4) 09/22/18 05:19 [place] # 1.0 K/mm3 (0.0-0.8) H 09/22/18 05:19 Eos # 0.1 K/mm3 (0.0-0.4) 09/22/18 05:19 Baso # 0.0 K/mm3 (0.0-0.1) 09/22/18 05:19 Seg Neutrophils % 65.8 % (40.0-70.0) 09/22/18 05:19 Seg Neutrophils # 4.7 K/mm3 (1.8-7.7) 09/22/18 05:19 PT 13.7 Sec. (12.2-14.9) 09/20/18 12:02 INR 0.99 (0.87-1.13) 09/20/18 12:02 APTT 27.9 Sec. (24.2-36.6) 09/20/18 12:02 VBG pH 7.392 (7.320-7.420) 09/20/18 12:02 Sodium 137 mmol/L (137-145) 09/24/18 17:09 Potassium 3.7 mmol/L (3.6-5.0) 09/24/18 17:09 Chloride 104.4 mmol/L (98-107) 09/24/18 17:09 Carbon Dioxide 17 mmol/L (22-30) L 09/24/18 17:09 Anion Gap 19 mmol/L 09/24/18 17:09 BUN 34 mg/dL (9-20) H 09/24/18 17:09 Creatinine 1.2 mg/dL (0.8-1.5) 09/24/18 17:09 Estimated GFR > 60 ml/min 09/24/18 17:09 BUN/Creatinine Ratio 28 % 09/24/18 17:09 Glucose 132 mg/dL (75-100) H 09/24/18 17:09 POC Glucose 109 (70-105) H 09/25/18 17:13 Lactic Acid 1.50 mmol/L (0.7-2.0) 09/20/18 22:57 Calcium 8.8 mg/dL (8.4-10.2) 09/24/18 17:09 Magnesium 2.70 mg/dL (1.7-2.3) H 09/20/18 12:02 Total Bilirubin 0.50 mg/dL (0.1-1.2) 09/21/18 05:00 AST 8 units/L (5-40) 09/21/18 05:00 ALT < 5 units/L (7-56) L 09/21/18 05:00 Alkaline Phosphatase 45 units/L (35-129) 09/21/18 05:00 Ammonia 78.0 umol/L (25-60) H 09/20/18 12:02 Total Creatine Kinase 18 units/L (55-170) L 09/20/18 12:02 Troponin T < 0.010 ng/mL (0.00-0.029) 09/20/18 12:02 Total Protein 6.5 g/dL (6.3-8.2) D 09/21/18 05:00 Albumin 3.1 g/dL (3.9-5) L 09/21/18 05:00 Albumin/Globulin Ratio 0.9 % 09/21/18 05:00 TSH 0.966 mlU/mL (0.270-4.200) 09/20/18 12:02 Free T4 1.35 ng/dL (0.76-1.46) 09/20/18 12:02 Urine Color Red (Yellow) 09/25/18 Unknown Urine Turbidity Turbid (Clear) 09/25/18 Unknown Urine pH 7.0 (5.0-7.0) 09/25/18 Unknown Ur Specific [place] 1.018 (1.003-1.030) 09/25/18 Unknown Urine Protein 100 mg/dl mg/dL (Negative) 09/25/18 Unknown Urine Glucose (UA) Neg mg/dL (Negative) 09/25/18 Unknown Urine Ketones Neg mg/dL (Negative) 09/25/18 Unknown Urine Blood Lg (Negative) 09/25/18 Unknown Urine Nitrite Neg (Negative) 09/25/18 Unknown Urine Bilirubin Neg (Negative) 09/25/18 Unknown Urine Urobilinogen < 2.0 mg/dL (<2.0) 09/25/18 Unknown Ur Leukocyte Esterase Mod (Negative) 09/25/18 Unknown Urine WBC (Auto) > 182.0 /HPF (0.0-6.0) H 09/25/18 Unknown Urine RBC (Auto) > 182.0 /HPF (0.0-6.0) 09/25/18 Unknown U Epithel Cells (Auto) < 1.0 /HPF (0-13.0) 09/20/18 12:46 Urine Bacteria (Auto) 2+ /HPF (Negative) 09/20/18 12:46 Urine WBC Clumps 2+ /HPF 09/20/18 12:46 Urine Mucus 2+ /HPF 09/20/18 12:46 Salicylates < 0.3 mg/dL (2.8-20.0) L 09/20/18 12:02 Urine Opiates Screen Presumptive negative 09/20/18 12:46 Urine Methadone Screen Presumptive negative 09/20/18 12:46 Acetaminophen < 5.0 ug/mL (10.0-30.0) L 09/20/18 12:02 Ur Barbiturates Screen Presumptive negative 09/20/18 12:46 Ur Phencyclidine Scrn Presumptive negative 09/20/18 12:46 Ur Amphetamines Screen Presumptive negative 09/20/18 12:46 U Benzodiazepines Scrn Presumptive negative 09/20/18 12:46 Urine Cocaine Screen Presumptive negative 09/20/18 12:46 U Marijuana (THC) Screen Presumptive negative 09/20/18 12:46 Drugs of Abuse Note Disclamer 09/20/18 12:46 Plasma/Serum Alcohol < 0.01 % (0-0.07) 09/20/18 12:02 HIV 1&2 Antibody Rapid Non react (Non React) 09/20/18 12:02 HIV P24 Antigen Non react (Non React) 09/20/18 12:02 Nutrition/Malnutrition Assess - Dietary Evaluation Nutrition/Malnutrition Findings: Nutrition Notes Start: 09/26/18 13:13 Freq: Status: Active Protocol: Document 09/26/18 13:13 RM (Rec: 09/26/18 13:22 [id number]) Nutrition Notes Need for Assessment generated from: Low BMI Initial or Follow up Assessment Current Diagnosis Acute Kidney Injury COPD Sepsis Other Pertinent Diagnosis ETOH dependence, GI bleed, UTI , encephalopathy Current Diet GI soft Labs/Tests Reviewed Pertinent Medications Reviewed Height 5 ft 8 in Weight 52.6 kg [place] Body Weight (kg) 70.00 BMI 17.6 Subjective/Other Information Screened for low BMI. Pt confused and in restraints at time of visit. Noted temporal wasting. Per tech pt at 50 to 75% of lunch. Burn Absent Trauma Absent #1 Nutrition Diagnosis Malnutrition Etiology encephalopathy, ETOH dependence As Evidenced by Signs and Symptoms pt BMI of 17.6, temporal wasting Is patient on ventilator? No Is Patient Ambulatory and/or Out of Bed Yes REE-([place]-St. Jeor-ambulatory/OOB) [ 1749.150 NUTR.[id number]] Kcal/Kg value to use for calculation 39 Approximate Energy Requirements Using 2050 kcal/Kg Calculation Used for Recommendations Kcal/kg Additional Notes Protein Needs: 63-79g (1.2-1. 5g/kg) Fluid Needs: 1 ml/kcal Nutrition Intervention Change Diet Order: Continue current Add Supplement/Snack (indicate name/kcal Ensure Enlive 1 daily /protein ) Provides kCal: 350 Provides Protein (gm) 20 Goal #1 Meet at least 75% of calorie and protein needs via PO and ONS intakes Goal #2 Wt gain/maintenance Anticipated Discharge Needs: unable to determine at this time Follow-Up By: 09/28/18 Additional Comments Follow for PO and ONS intakes
--- NOTE | 2018-09-26 16:34 | Consultation ---
History of Present Illness - Reason for Consult Consult date: 09/26/18 - History of Present Illness 52 YO Male with ETOH Dependence, COPD, Malnutrition presents to ED for evaluation. Pt is Lethargic and unable to provide history. Pt history taken from family who is at bedside during exam and interview. As per family, the patient has become increasingly confused and weak over the past 4 days with worsening symptoms over the past 2 days. Pt is currently unable to independently conduct activities of daily living. EMS notified, and upon arrival the patient was found to be in distress and transported to [facility] for further care and evaluation. Pt seen and evaluated in ED and found to have Encephalopathy, Sepsis secondary to UTI, Acute Renal Failure, and Rectal Bleeding. Pt admitted to IMCU and initiated on sepsis protocol. GI consulted. pt getting LOU - prelim - normal cadena draining slightly bloody urine cadena in balloon in urethra (pt pulling on cadena) changed to 18F [place] tip with wire - irrigated pink tinge A/P BPH gross hematuria cadena trauma consider mittens ok to remove cadena in few days----do at 6am Past History Past Medical History: COPD, other (Malnutrition) Past Surgical History: No surgical history, Other (reviewed) Social history: alcohol abuse Family history: no significant family history (reviewed) Medications and Allergies Allergies Allergy/AdvReac Type Severity Reaction Status Date / Time No Known Allergies Allergy Unverified 09/20/18 11:27 Home Medications Medication Instructions Recorded Confirmed Last Taken Type Unobtainable 09/20/18 09/20/18 Unknown History Active Meds: Active Medications Acetaminophen (Tylenol) 650 mg PO Q4H PRN PRN Reason: Pain MILD(1-3)/Fever >100.5/JARAMILLO Last Admin: 09/25/18 21:50 Dose: 650 mg Documented by: Albuterol (Proventil) 2.5 mg IH Q4HRT PRN PRN Reason: Shortness Of Breath Chlordiazepoxide HCl (Librium) 25 mg PO Q8H JOANN Last Admin: 09/26/18 14:11 Dose: 25 mg Documented by: Cefepime HCl (Maxipime/Ns 2 Gm/100 Ml) 2 gm in 100 mls @ 200 mls/hr IV Q8HR JOANN; Protocol Last Admin: 09/26/18 14:11 Dose: 200 mls/hr Documented by: Lansoprazole (Prevacid Solutab) 30 mg FEEDTUBE BID [facility] Last Admin: 09/26/18 10:52 Dose: 30 mg Documented by: Lorazepam (Ativan) 0.5 mg IV Q4H PRN PRN Reason: Agitation Last Admin: 09/25/18 02:21 Dose: 0.5 mg Documented by: Ondansetron HCl (Zofran) 4 mg IV Q8H PRN PRN Reason: Nausea And Vomiting Sodium Chloride (Sodium Chloride Flush Syringe 10 Ml) 10 ml IV BID [facility] Last Admin: 09/26/18 10:56 Dose: 10 ml Documented by: Sodium Chloride (Sodium Chloride Flush Syringe 10 Ml) 10 ml IV PRN PRN PRN Reason: LINE FLUSH Exam - Constitutional Vitals: Temp Pulse Resp BP Pulse Ox 97.6 F 77 20 121/80 96 09/26/18 05:08 09/26/18 05:08 09/26/18 10:00 09/26/18 05:08 09/26/18 09:07 Results - Labs CBC & Chem 7: 09/24/18 17:09 09/24/18 17:09 Labs: Abnormal lab results 09/25/18 09/25/18 Range/Units 17:13 Unknown POC Glucose 109 H (70-105) Urine WBC (Auto) > 182.0 H (0.0-6.0) /HPF
--- NOTE | 2018-09-26 18:42 | Ultrasound Report ---
FINAL REPORT EXAM: US RENAL BILAT HISTORY: hematuria TECHNIQUE: Grayscale and color-flow images of the kidneys and urinary bladder was performed. Comparison: None FINDINGS: Right kidney: Measures 10 centimeters x 4.5 centimeters x 5.2 centimeters with cortical thickness daisha surement of 1.4 centimeters. Left kidney: Measures 10.2 centimeters x 5.4 centimeters x 4.9 centimeters with cortical thickness me asurement of 0.8 centimeter. There is no demonstration of hydronephrosis, renal calculi or renal mass of either kidney. Urinary bladder: Decompressed. There appears to be marked increased thickness of the urinary bladder wall (20 millimeters). A Matthew catheter is demonstrated in the urinary bladder. Incidental note is made of demonstration of gallstones within the gallbladder. IMPRESSION: 1. Appearance of marked increased thickness of the urinary bladder wall. Balloon catheter within the urinary bladder. 2. Unremarkable appearance of the kidneys. 3. Gallstones within the gallbladder.
[2018-09-27] MEDS: LIBRIUM PO SCH ×3 (06:19→22:50)
--- NOTE | 2018-09-27 07:24 | Progress Note ---
Assessment and Plan Assessment and plan: Patient is a 52 yo man with PMH of ETOH dependence, COPD, and malnutrition who presented to ED with AMS and was found to have encephalopathy, sepsis 2/2 UTI, and acute renal failure upon admission. There were also reports of rectal bleeding per family, GI evaluated. Patient on alcohol withdrawal protocol, restraints, no plan for endoscopy now. * Renal Ultrasound IMPRESSION: 1. Appearance of marked increased thickness of the urinary bladder wall. Balloon catheter within the urinary bladder. 2. Unremarkable appearance of the kidneys. 3. Gallstones within the gallbladder. There is no demonstration of hydronephrosis, renal calculi or renal mass of either kidney. / EtOH dependence with intoxication, now in withdrawal: treat with Ciwa, did poorly with PT, has h/o heavy alcohol drinking, cont Thiamine, Folic acid, multivitamin, CIWA protocol with librium and ativan as needed. /Sepsis due to UTI with suspected obstruction/Urinary retention: Sepsis protocol, cont IV antibiotic therapy, monitor uop q shift, IVF resuscitation therapy, follow Cx, renal u/s reviewed, no hydronephrosis /GI bleed, resolved: GI consulted in ED, cont ppi therapy, stable h/h, supportive care. No plan for endoscopy /Hematuria with Urinary Obstruction/Retention, PVR over 900 on 09/25/18, cadena placed, now gross hematuria: Urology note reviewed, /Acute toxic Encephalopathy, likely from alcohol withdrawal, CT Head no acute finding, cont neuro check, seizure precautions, CIWA protocol, aspiration precautions, treat sepsis. Consult psych /ARF (acute renal failure) with vasomotor nephropathy: cont IVF resuscitation, monitor uop q shift, repeat bmp in the am, renal u/s reviewed /UTI (urinary tract infection) complicated/complex: cont IV antibiotic therapy, supportive care, urine Cx /Severe malnutrition most likely, poa: [employer] consult /DVT prophylaxis: SCD to BLE while in bed D/W sister Christ [phone] who was visiting Disposition: continue inpatient care, d/c once mental status improves/ETOH WD resolves. Continued restraints History Interval history: Patient was seen and examined. Follow-up on current diagnosis of AMS, still pres ent. Overnight uneventful. Patient is confused. Imaging, nursing note, chart, labs and old chart reviewed. Discussed with patient. Hospitalist Physical - Physical exam Narrative exam: Gen: thin frail, NAD, Awake, Alert but confused HEENT: NCAT, EOMI, PERRL, OP Clear Neck: supple, no adenopathy, no thyromegaly, no JVD CVS/Heart: Regular tachycardia, normal S1S2, pulses present bilaterally Chest/Lungs: CTA B, Symmetrical chest expansion, good air entry bilaterally GI/Abdomen: soft, NTND, good bowel sounds, no guarding or rebound /Bladder: no suprapubic tenderness, no CVA or paraspinal tenderness Extermity/Skin: no c/c/e, no obvious rash MSK: FROM x 4 Neuro: CN 2-12 grossly intact, doesn't follow commands Psych: confused, ignores instructions - Constitutional Vitals: Temp Pulse Resp BP Pulse Ox 98.2 F 85 16 118/78 94 09/27/18 05:26 09/27/18 05:20 09/27/18 05:20 09/27/18 05:20 09/27/18 05:20 General appearance: Present: no acute distress Results - Labs CBC & Chem 7: 09/24/18 17:09 09/24/18 17:09 Labs: Laboratory Last Values WBC 9.0 K/mm3 (4.5-11.0) 09/24/18 17:09 RBC 3.68 M/mm3 (3.65-5.03) 09/24/18 17:09 Hgb 11.9 gm/dl (11.8-15.2) 09/24/18 17:09 Hct 34.4 % (35.5-45.6) L 09/24/18 17:09 MCV 94 fl (84-94) 09/24/18 17:09 MCH 32 pg (28-32) 09/24/18 17:09 MCHC 35 % (32-34) H 09/24/18 17:09 RDW 13.5 % (13.2-15.2) 09/24/18 17:09 Plt Count 407 K/mm3 (140-440) 09/24/18 17:09 Lymph % (Auto) 18.6 % (13.4-35.0) 09/22/18 05:19 [place] % (Auto) 14.3 % (0.0-7.3) H 09/22/18 05:19 Eos % (Auto) 0.8 % (0.0-4.3) 09/22/18 05:19 Baso % (Auto) 0.5 % (0.0-1.8) 09/22/18 05:19 Lymph # 1.3 K/mm3 (1.2-5.4) 09/22/18 05:19 [place] # 1.0 K/mm3 (0.0-0.8) H 09/22/18 05:19 Eos # 0.1 K/mm3 (0.0-0.4) 09/22/18 05:19 Baso # 0.0 K/mm3 (0.0-0.1) 09/22/18 05:19 Seg Neutrophils % 65.8 % (40.0-70.0) 09/22/18 05:19 Seg Neutrophils # 4.7 K/mm3 (1.8-7.7) 09/22/18 05:19 PT 13.7 Sec. (12.2-14.9) 09/20/18 12:02 INR 0.99 (0.87-1.13) 09/20/18 12:02 APTT 27.9 Sec. (24.2-36.6) 09/20/18 12:02 VBG pH 7.392 (7.320-7.420) 09/20/18 12:02 Sodium 137 mmol/L (137-145) 09/24/18 17:09 Potassium 3.7 mmol/L (3.6-5.0) 09/24/18 17:09 Chloride 104.4 mmol/L (98-107) 09/24/18 17:09 Carbon Dioxide 17 mmol/L (22-30) L 09/24/18 17:09 Anion Gap 19 mmol/L 09/24/18 17:09 BUN 34 mg/dL (9-20) H 09/24/18 17:09 Creatinine 1.2 mg/dL (0.8-1.5) 09/24/18 17:09 Estimated GFR > 60 ml/min 09/24/18 17:09 BUN/Creatinine Ratio 28 % 09/24/18 17:09 Glucose 132 mg/dL (75-100) H 09/24/18 17:09 POC Glucose 108 (70-105) H 09/27/18 05:28 Lactic Acid 1.50 mmol/L (0.7-2.0) 09/20/18 22:57 Calcium 8.8 mg/dL (8.4-10.2) 09/24/18 17:09 Magnesium 2.70 mg/dL (1.7-2.3) H 09/20/18 12:02 Total Bilirubin 0.50 mg/dL (0.1-1.2) 09/21/18 05:00 AST 8 units/L (5-40) 09/21/18 05:00 ALT < 5 units/L (7-56) L 09/21/18 05:00 Alkaline Phosphatase 45 units/L (35-129) 09/21/18 05:00 Ammonia 78.0 umol/L (25-60) H 09/20/18 12:02 Total Creatine Kinase 18 units/L (55-170) L 09/20/18 12:02 Troponin T < 0.010 ng/mL (0.00-0.029) 09/20/18 12:02 Total Protein 6.5 g/dL (6.3-8.2) D 09/21/18 05:00 Albumin 3.1 g/dL (3.9-5) L 09/21/18 05:00 Albumin/Globulin Ratio 0.9 % 09/21/18 05:00 TSH 0.966 mlU/mL (0.270-4.200) 09/20/18 12:02 Free T4 1.35 ng/dL (0.76-1.46) 09/20/18 12:02 Urine Color Red (Yellow) 09/25/18 Unknown Urine Turbidity Turbid (Clear) 09/25/18 Unknown Urine pH 7.0 (5.0-7.0) 09/25/18 Unknown Ur Specific [place] 1.018 (1.003-1.030) 09/25/18 Unknown Urine Protein 100 mg/dl mg/dL (Negative) 09/25/18 Unknown Urine Glucose (UA) Neg mg/dL (Negative) 09/25/18 Unknown Urine Ketones Neg mg/dL (Negative) 09/25/18 Unknown Urine Blood Lg (Negative) 09/25/18 Unknown Urine Nitrite Neg (Negative) 09/25/18 Unknown Urine Bilirubin Neg (Negative) 09/25/18 Unknown Urine Urobilinogen < 2.0 mg/dL (<2.0) 09/25/18 Unknown Ur Leukocyte Esterase Mod (Negative) 09/25/18 Unknown Urine WBC (Auto) > 182.0 /HPF (0.0-6.0) H 09/25/18 Unknown Urine RBC (Auto) > 182.0 /HPF (0.0-6.0) 09/25/18 Unknown U Epithel Cells (Auto) < 1.0 /HPF (0-13.0) 09/20/18 12:46 Urine Bacteria (Auto) 2+ /HPF (Negative) 09/20/18 12:46 Urine WBC Clumps 2+ /HPF 09/20/18 12:46 Urine Mucus 2+ /HPF 09/20/18 12:46 Salicylates < 0.3 mg/dL (2.8-20.0) L 09/20/18 12:02 Urine Opiates Screen Presumptive negative 09/20/18 12:46 Urine Methadone Screen Presumptive negative 09/20/18 12:46 Acetaminophen < 5.0 ug/mL (10.0-30.0) L 09/20/18 12:02 Ur Barbiturates Screen Presumptive negative 09/20/18 12:46 Ur Phencyclidine Scrn Presumptive negative 09/20/18 12:46 Ur Amphetamines Screen Presumptive negative 09/20/18 12:46 U Benzodiazepines Scrn Presumptive negative 09/20/18 12:46 Urine Cocaine Screen Presumptive negative 09/20/18 12:46 U Marijuana (THC) Screen Presumptive negative 09/20/18 12:46 Drugs of Abuse Note Disclamer 09/20/18 12:46 Plasma/Serum Alcohol < 0.01 % (0-0.07) 09/20/18 12:02 HIV 1&2 Antibody Rapid Non react (Non React) 09/20/18 12:02 HIV P24 Antigen Non react (Non React) 09/20/18 12:02 Nutrition/Malnutrition Assess - Dietary Evaluation Nutrition/Malnutrition Findings: Nutrition Notes Start: 09/26/18 13:13 Freq: Status: Active Protocol: Document 09/26/18 13:13 RM (Rec: 09/26/18 13:22 RM [id number]) Nutrition Notes Need for Assessment generated from: Low BMI Initial or Follow up Assessment Current Diagnosis Acute Kidney Injury COPD Sepsis Other Pertinent Diagnosis ETOH dependence, GI bleed, UTI , encephalopathy Current Diet GI soft Labs/Tests Reviewed Pertinent Medications Reviewed Height 5 ft 8 in Weight 52.6 kg [place] Body Weight (kg) 70.00 BMI 17.6 Subjective/Other Information Screened for low BMI. Pt confused and in restraints at time of visit. Noted temporal wasting. Per tech pt at 50 to 75% of lunch. Burn Absent Trauma Absent #1 Nutrition Diagnosis Malnutrition Etiology encephalopathy, ETOH dependence As Evidenced by Signs and Symptoms pt BMI of 17.6, temporal wasting Is patient on ventilator? No Is Patient Ambulatory and/or Out of Bed Yes REE-([facility]-ambulatory/OOB) [ 1749.150 NUTR.MSJOOB] Kcal/Kg value to use for calculation 39 Approximate Energy Requirements Using 2050 kcal/Kg Calculation Used for Recommendations Kcal/kg Additional Notes Protein Needs: 63-79g (1.2-1. 5g/kg) Fluid Needs: 1 ml/kcal Nutrition Intervention Change Diet Order: Continue current Add Supplement/Snack (indicate name/kcal Ensure Enlive 1 daily /protein ) Provides kCal: 350 Provides Protein (gm) 20 Goal #1 Meet at least 75% of calorie and protein needs via PO and ONS intakes Goal #2 Wt gain/maintenance Anticipated Discharge Needs: unable to determine at this time Follow-Up By: 09/28/18 Additional Comments Follow for PO and ONS intakes
[2018-09-27] MEDS: PREVACID SOLUTAB FEEDTUBE SCH ×2 (09:48→21:00)
[2018-09-27] MEDS: SODIUM CHLORIDE FLUSH SYRINGE 10 ML IV SCH ×2 (09:48→21:00)
[2018-09-27] MEDS: ATIVAN IV PRN ×2 (20:41→23:49)
[2018-09-28] MEDS: PERCOCET 5/325 PO PRN (02:00)
[2018-09-28 06:09] LABS: Hematocrit 31.9 % (35.5-45.6); Hemoglobin 10.8 gm/dl (11.8-15.2); Mean Corpuscular HGB Conc 34 % (32-34); Mean Corpuscular Volume 92 fl (84-94); Platelet Count 397 K/mm3 (140-440); Red Blood Count 3.47 M/mm3 (3.65-5.03); Red Cell Distribution Width 13.4 % (13.2-15.2)
[2018-09-28 06:31] LABS: BUN/Creatinine Ratio 19; Blood Urea Nitrogen 13 mg/dL (9-20); Calcium 8.5 mg/dL (8.4-10.2); Hemolysis Index 5
[2018-09-28] MEDS: LIBRIUM PO SCH ×3 (07:01→23:17)
[2018-09-28] MEDS: SODIUM CHLORIDE FLUSH SYRINGE 10 ML IV SCH ×2 (09:51→23:17)
[2018-09-28] MEDS: PREVACID SOLUTAB FEEDTUBE SCH ×2 (09:51→23:17)
[2018-09-28] MEDS: ATIVAN IV PRN (10:36)
--- NOTE | 2018-09-28 21:20 | Progress Note ---
Assessment and Plan Assessment and plan: Patient is a 52 yo man with PMH of ETOH dependence, COPD, and malnutrition who presented to ED with AMS and was found to have encephalopathy, sepsis 2/2 UTI, and acute renal failure upon admission. There were also reports of rectal bleeding per family, GI evaluated. Patient on alcohol withdrawal protocol, restraints, no plan for endoscopy now. * Renal Ultrasound IMPRESSION: 1. Appearance of marked increased thickness of the urinary bladder wall. Balloon catheter within the urinary bladder. 2. Unremarkable appearance of the kidneys. 3. Gallstones within the gallbladder. There is no demonstration of hydronephrosis, renal calculi or renal mass of either kidney. / EtOH dependence with intoxication, now in withdrawal: treat with Ciwa, did poorly with PT, has h/o heavy alcohol drinking, cont Thiamine, Folic acid, multivitamin, CIWA protocol with librium and ativan as needed. /Sepsis due to UTI with suspected obstruction/Urinary retention: Sepsis protocol, cont IV antibiotic therapy, monitor uop q shift, IVF resuscitation therapy, follow Cx, renal u/s reviewed, no hydronephrosis /GI bleed, resolved: GI consulted in ED, cont ppi therapy, stable h/h, supportive care. No plan for endoscopy /Hematuria with Urinary Obstruction/Retention, PVR over 900 on 09/25/18, cadena placed, now gross hematuria: Urology note reviewed, /Acute toxic Encephalopathy, likely from alcohol withdrawal, CT Head no acute finding, cont neuro check, seizure precautions, CIWA protocol, aspiration precautions, treat sepsis. Consult psych /ARF (acute renal failure) with vasomotor nephropathy: cont IVF resuscitation, monitor uop q shift, repeat bmp in the am, renal u/s reviewed /UTI (urinary tract infection) complicated/complex: cont IV antibiotic therapy, supportive care, urine Cx /Severe malnutrition most likely, poa: [employer] consult /DVT prophylaxis: SCD to BLE while in bed D/W sister Christ [phone] who was visiting Disposition: continue inpatient care, d/c once mental status improves/ETOH WD resolves. Continued restraints History Interval history: Patient was seen and examined. Follow-up on current diagnosis of AMS, still pres ent. Overnight uneventful. Patient is confused. Imaging, nursing note, chart, labs and old chart reviewed. Discussed with patient. Hospitalist Physical - Physical exam Narrative exam: Gen: thin frail, NAD, Awake, Alert but confused HEENT: NCAT, EOMI, PERRL, OP Clear Neck: supple, no adenopathy, no thyromegaly, no JVD CVS/Heart: Regular tachycardia, normal S1S2, pulses present bilaterally Chest/Lungs: CTA B, Symmetrical chest expansion, good air entry bilaterally GI/Abdomen: soft, NTND, good bowel sounds, no guarding or rebound /Bladder: no suprapubic tenderness, no CVA or paraspinal tenderness Extermity/Skin: no c/c/e, no obvious rash MSK: FROM x 4 Neuro: CN 2-12 grossly intact, doesn't follow commands Psych: confused, ignores instructions - Constitutional Vitals: Temp Pulse Resp BP Pulse Ox 97.5 F L 80 20 105/74 98 09/28/18 16:18 09/28/18 16:18 09/28/18 16:18 09/28/18 16:18 09/28/18 16:18 General appearance: Present: no acute distress Results - Labs CBC & Chem 7: 09/28/18 05:22 09/28/18 05:22 Labs: Laboratory Last Values WBC 7.9 K/mm3 (4.5-11.0) 09/28/18 05:22 RBC 3.47 M/mm3 (3.65-5.03) L 09/28/18 05:22 Hgb 10.8 gm/dl (11.8-15.2) L 09/28/18 05:22 Hct 31.9 % (35.5-45.6) L 09/28/18 05:22 MCV 92 fl (84-94) 09/28/18 05:22 MCH 31 pg (28-32) 09/28/18 05:22 MCHC 34 % (32-34) 09/28/18 05:22 RDW 13.4 % (13.2-15.2) 09/28/18 05:22 Plt Count 397 K/mm3 (140-440) 09/28/18 05:22 Lymph % (Auto) 18.6 % (13.4-35.0) 09/22/18 05:19 [place] % (Auto) 14.3 % (0.0-7.3) H 09/22/18 05:19 Eos % (Auto) 0.8 % (0.0-4.3) 09/22/18 05:19 Baso % (Auto) 0.5 % (0.0-1.8) 09/22/18 05:19 Lymph # 1.3 K/mm3 (1.2-5.4) 09/22/18 05:19 [place] # 1.0 K/mm3 (0.0-0.8) H 09/22/18 05:19 Eos # 0.1 K/mm3 (0.0-0.4) 09/22/18 05:19 Baso # 0.0 K/mm3 (0.0-0.1) 09/22/18 05:19 Seg Neutrophils % 65.8 % (40.0-70.0) 09/22/18 05:19 Seg Neutrophils # 4.7 K/mm3 (1.8-7.7) 09/22/18 05:19 PT 13.7 Sec. (12.2-14.9) 09/20/18 12:02 INR 0.99 (0.87-1.13) 09/20/18 12:02 APTT 27.9 Sec. (24.2-36.6) 09/20/18 12:02 VBG pH 7.392 (7.320-7.420) 09/20/18 12:02 Sodium 135 mmol/L (137-145) L 09/28/18 05:22 Potassium 3.8 mmol/L (3.6-5.0) 09/28/18 05:22 Chloride 98.9 mmol/L (98-107) 09/28/18 05:22 Carbon Dioxide 25 mmol/L (22-30) D 09/28/18 05:22 Anion Gap 15 mmol/L 09/28/18 05:22 BUN 13 mg/dL (9-20) 09/28/18 05:22 Creatinine 0.7 mg/dL (0.8-1.5) L 09/28/18 05:22 Estimated GFR > 60 ml/min 09/28/18 05:22 BUN/Creatinine Ratio 19 % 09/28/18 05:22 Glucose 107 mg/dL (75-100) H 09/28/18 05:22 POC Glucose 110 (70-105) H 09/28/18 13:16 Lactic Acid 1.50 mmol/L (0.7-2.0) 09/20/18 22:57 Calcium 8.5 mg/dL (8.4-10.2) 09/28/18 05:22 Magnesium 2.70 mg/dL (1.7-2.3) H 09/20/18 12:02 Total Bilirubin 0.50 mg/dL (0.1-1.2) 09/21/18 05:00 AST 8 units/L (5-40) 09/21/18 05:00 ALT < 5 units/L (7-56) L 09/21/18 05:00 Alkaline Phosphatase 45 units/L (35-129) 09/21/18 05:00 Ammonia 78.0 umol/L (25-60) H 09/20/18 12:02 Total Creatine Kinase 18 units/L (55-170) L 09/20/18 12:02 Troponin T < 0.010 ng/mL (0.00-0.029) 09/20/18 12:02 Total Protein 6.5 g/dL (6.3-8.2) D 09/21/18 05:00 Albumin 3.1 g/dL (3.9-5) L 09/21/18 05:00 Albumin/Globulin Ratio 0.9 % 09/21/18 05:00 TSH 0.966 mlU/mL (0.270-4.200) 09/20/18 12:02 Free T4 1.35 ng/dL (0.76-1.46) 09/20/18 12:02 Urine Color Red (Yellow) 09/25/18 Unknown Urine Turbidity Turbid (Clear) 09/25/18 Unknown Urine pH 7.0 (5.0-7.0) 09/25/18 Unknown Ur Specific [place] 1.018 (1.003-1.030) 09/25/18 Unknown Urine Protein 100 mg/dl mg/dL (Negative) 09/25/18 Unknown Urine Glucose (UA) Neg mg/dL (Negative) 09/25/18 Unknown Urine Ketones Neg mg/dL (Negative) 09/25/18 Unknown Urine Blood Lg (Negative) 09/25/18 Unknown Urine Nitrite Neg (Negative) 09/25/18 Unknown Urine Bilirubin Neg (Negative) 09/25/18 Unknown Urine Urobilinogen < 2.0 mg/dL (<2.0) 09/25/18 Unknown Ur Leukocyte Esterase Mod (Negative) 09/25/18 Unknown Urine WBC (Auto) > 182.0 /HPF (0.0-6.0) H 09/25/18 Unknown Urine RBC (Auto) > 182.0 /HPF (0.0-6.0) 09/25/18 Unknown U Epithel Cells (Auto) < 1.0 /HPF (0-13.0) 09/20/18 12:46 Urine Bacteria (Auto) 2+ /HPF (Negative) 09/20/18 12:46 Urine WBC Clumps 2+ /HPF 09/20/18 12:46 Urine Mucus 2+ /HPF 09/20/18 12:46 Salicylates < 0.3 mg/dL (2.8-20.0) L 09/20/18 12:02 Urine Opiates Screen Presumptive negative 09/20/18 12:46 Urine Methadone Screen Presumptive negative 09/20/18 12:46 Acetaminophen < 5.0 ug/mL (10.0-30.0) L 09/20/18 12:02 Ur Barbiturates Screen Presumptive negative 09/20/18 12:46 Ur Phencyclidine Scrn Presumptive negative 09/20/18 12:46 Ur Amphetamines Screen Presumptive negative 09/20/18 12:46 U Benzodiazepines Scrn Presumptive negative 09/20/18 12:46 Urine Cocaine Screen Presumptive negative 09/20/18 12:46 U Marijuana (THC) Screen Presumptive negative 09/20/18 12:46 Drugs of Abuse Note Disclamer 09/20/18 12:46 Plasma/Serum Alcohol < 0.01 % (0-0.07) 09/20/18 12:02 HIV 1&2 Antibody Rapid Non react (Non React) 09/20/18 12:02 HIV P24 Antigen Non react (Non React) 09/20/18 12:02 Nutrition/Malnutrition Assess - Dietary Evaluation Nutrition/Malnutrition Findings: Nutrition Notes Start: 09/26/18 13:13 Freq: Status: Active Protocol: Document 09/28/18 11:56 SA (Rec: 09/28/18 12:22 SA [id number]) Co-Sign 09/28/18 11:56 LP Nutrition Notes Initial or Follow up Reassessment Current Diagnosis Acute Kidney Injury COPD Sepsis Other Pertinent Diagnosis ETOH dependence, GI bleed, UTI , encephalopathy Current Diet GI soft Labs/Tests Reviewed Pertinent Medications Reviewed Height 5 ft 8 in Weight 52.6 kg [place] Body Weight (kg) 70.00 BMI 17.6 Subjective/Other Information Patient states appetite is good. Pt reports eating 100% of meals and drinking 100% of ONS. Pt denies swallowing/ chewing difficulty. Patient states UBW being 125-135#. Patient denies N/V/D. Percent of energy/protein needs met: 100%/100% Burn Absent Trauma Absent #1 Nutrition Diagnosis Malnutrition Diagnosis Progress(for reassessment Continues documentation) Is patient on ventilator? No Is Patient Ambulatory and/or Out of Bed Yes REE-([place]-ambulatory/OOB) [ 1749.150 NUTR.MSJOOB] Kcal/Kg value to use for calculation 39 Approximate Energy Requirements Using 2050 kcal/Kg Calculation Used for Recommendations Kcal/kg Additional Notes Protein Needs: 63-79g (1.2-1. 5g/kg) Fluid Needs: 1 ml/kcal Nutrition Intervention Change Diet Order: Continue current Add Supplement/Snack (indicate name/kcal Ensure Enlive 1 daily /protein ) Provides kCal: 350 Provides Protein (gm) 20 Goal #1 Meet at least 75% of calorie and protein needs via PO and ONS intakes Goal #2 Wt gain/maintenance Anticipated Discharge Needs: unable to determine at this time Follow-Up By: 10/02/18 Additional Comments F/U: PO and ONS intakes
[2018-09-29] MEDS: ATIVAN IV PRN (03:07)
[2018-09-29] MEDS: LIBRIUM PO SCH ×3 (10:02→22:06)
[2018-09-29] MEDS: PREVACID SOLUTAB FEEDTUBE SCH ×2 (10:02→22:06)
[2018-09-29] MEDS: SODIUM CHLORIDE FLUSH SYRINGE 10 ML IV SCH ×2 (10:03→22:06)
--- NOTE | 2018-09-29 13:08 | Progress Note ---
Assessment and Plan Assessment and plan: Patient is a 52 yo man with PMH of ETOH dependence, COPD, and malnutrition who presented to ED with AMS and was found to have encephalopathy, sepsis 2/2 UTI, and acute renal failure upon admission. There were also reports of rectal bleeding per family, GI evaluated. Patient on alcohol withdrawal protocol, restraints, no plan for endoscopy now. * Renal Ultrasound IMPRESSION: 1. Appearance of marked increased thickness of the urinary bladder wall. Balloon catheter within the urinary bladder. 2. Unremarkable appearance of the kidneys. 3. Gallstones within the gallbladder. There is no demonstration of hydronephrosis, renal calculi or renal mass of either kidney. / EtOH dependence with intoxication, now in withdrawal: treat with Ciwa, did poorly with PT, has h/o heavy alcohol drinking, cont Thiamine, Folic acid, multivitamin, CIWA protocol with librium and ativan as needed. /Sepsis due to UTI with suspected obstruction/Urinary retention: Sepsis protocol, cont IV antibiotic therapy, monitor uop q shift, IVF resuscitation therapy, follow Cx, renal u/s reviewed, no hydronephrosis /GI bleed, resolved: GI consulted in ED, cont ppi therapy, stable h/h, supportive care. No plan for endoscopy /Hematuria with Urinary Obstruction/Retention, PVR over 900 on 09/25/18, cadena placed, now gross hematuria: Urology note reviewed, /Acute toxic Encephalopathy, likely from alcohol withdrawal, CT Head no acute finding, cont neuro check, seizure precautions, CIWA protocol, aspiration precautions, treat sepsis. Consult psych /ARF (acute renal failure) with vasomotor nephropathy: cont IVF resuscitation, monitor uop q shift, repeat bmp in the am, renal u/s reviewed /UTI (urinary tract infection) complicated/complex: cont IV antibiotic therapy, supportive care, urine Cx /Severe malnutrition most likely, poa: Steel Sampler consult /DVT prophylaxis: SCD to BLE while in bed D/W sister Christ [phone] who was visiting Disposition: continue inpatient care, d/c once mental status improves/ETOH WD resolves. Continued restraints History Interval history: Patient was seen and examined. Follow-up on current diagnosis of AMS, still pres ent. Overnight uneventful. Patient is confused. Imaging, nursing note, chart, labs and old chart reviewed. Discussed with patient. Hospitalist Physical - Physical exam Narrative exam: Gen: thin frail, NAD, Awake, Alert but confused HEENT: NCAT, EOMI, PERRL, OP Clear Neck: supple, no adenopathy, no thyromegaly, no JVD CVS/Heart: Regular tachycardia, normal S1S2, pulses present bilaterally Chest/Lungs: CTA B, Symmetrical chest expansion, good air entry bilaterally GI/Abdomen: soft, NTND, good bowel sounds, no guarding or rebound /Bladder: no suprapubic tenderness, no CVA or paraspinal tenderness Extermity/Skin: no c/c/e, no obvious rash MSK: FROM x 4 Neuro: CN 2-12 grossly intact, doesn't follow commands Psych: confused, ignores instructions - Constitutional Vitals: Temp Pulse Resp BP Pulse Ox 97.8 F 85 18 125/89 92 09/29/18 12:07 09/29/18 12:07 09/29/18 12:07 09/29/18 12:07 09/29/18 12:07 General appearance: Present: no acute distress Results - Labs CBC & Chem 7: 09/28/18 05:22 09/28/18 05:22 Labs: Laboratory Last Values WBC 7.9 K/mm3 (4.5-11.0) 09/28/18 05:22 RBC 3.47 M/mm3 (3.65-5.03) L 09/28/18 05:22 Hgb 10.8 gm/dl (11.8-15.2) L 09/28/18 05:22 Hct 31.9 % (35.5-45.6) L 09/28/18 05:22 MCV 92 fl (84-94) 09/28/18 05:22 MCH 31 pg (28-32) 09/28/18 05:22 MCHC 34 % (32-34) 09/28/18 05:22 RDW 13.4 % (13.2-15.2) 09/28/18 05:22 Plt Count 397 K/mm3 (140-440) 09/28/18 05:22 Lymph % (Auto) 18.6 % (13.4-35.0) 09/22/18 05:19 [place] % (Auto) 14.3 % (0.0-7.3) H 09/22/18 05:19 Eos % (Auto) 0.8 % (0.0-4.3) 09/22/18 05:19 Baso % (Auto) 0.5 % (0.0-1.8) 09/22/18 05:19 Lymph # 1.3 K/mm3 (1.2-5.4) 09/22/18 05:19 [place] # 1.0 K/mm3 (0.0-0.8) H 09/22/18 05:19 Eos # 0.1 K/mm3 (0.0-0.4) 09/22/18 05:19 Baso # 0.0 K/mm3 (0.0-0.1) 09/22/18 05:19 Seg Neutrophils % 65.8 % (40.0-70.0) 09/22/18 05:19 Seg Neutrophils # 4.7 K/mm3 (1.8-7.7) 09/22/18 05:19 PT 13.7 Sec. (12.2-14.9) 09/20/18 12:02 INR 0.99 (0.87-1.13) 09/20/18 12:02 APTT 27.9 Sec. (24.2-36.6) 09/20/18 12:02 VBG pH 7.392 (7.320-7.420) 09/20/18 12:02 Sodium 135 mmol/L (137-145) L 09/28/18 05:22 Potassium 3.8 mmol/L (3.6-5.0) 09/28/18 05:22 Chloride 98.9 mmol/L (98-107) 09/28/18 05:22 Carbon Dioxide 25 mmol/L (22-30) D 09/28/18 05:22 Anion Gap 15 mmol/L 09/28/18 05:22 BUN 13 mg/dL (9-20) 09/28/18 05:22 Creatinine 0.7 mg/dL (0.8-1.5) L 09/28/18 05:22 Estimated GFR > 60 ml/min 09/28/18 05:22 BUN/Creatinine Ratio 19 % 09/28/18 05:22 Glucose 107 mg/dL (75-100) H 09/28/18 05:22 POC Glucose 110 (70-105) H 09/28/18 13:16 Lactic Acid 1.50 mmol/L (0.7-2.0) 09/20/18 22:57 Calcium 8.5 mg/dL (8.4-10.2) 09/28/18 05:22 Magnesium 2.70 mg/dL (1.7-2.3) H 09/20/18 12:02 Total Bilirubin 0.50 mg/dL (0.1-1.2) 09/21/18 05:00 AST 8 units/L (5-40) 09/21/18 05:00 ALT < 5 units/L (7-56) L 09/21/18 05:00 Alkaline Phosphatase 45 units/L (35-129) 09/21/18 05:00 Ammonia 78.0 umol/L (25-60) H 09/20/18 12:02 Total Creatine Kinase 18 units/L (55-170) L 09/20/18 12:02 Troponin T < 0.010 ng/mL (0.00-0.029) 09/20/18 12:02 Total Protein 6.5 g/dL (6.3-8.2) D 09/21/18 05:00 Albumin 3.1 g/dL (3.9-5) L 09/21/18 05:00 Albumin/Globulin Ratio 0.9 % 09/21/18 05:00 TSH 0.966 mlU/mL (0.270-4.200) 09/20/18 12:02 Free T4 1.35 ng/dL (0.76-1.46) 09/20/18 12:02 Urine Color Red (Yellow) 09/25/18 Unknown Urine Turbidity Turbid (Clear) 09/25/18 Unknown Urine pH 7.0 (5.0-7.0) 09/25/18 Unknown Ur Specific [place] 1.018 (1.003-1.030) 09/25/18 Unknown Urine Protein 100 mg/dl mg/dL (Negative) 09/25/18 Unknown Urine Glucose (UA) Neg mg/dL (Negative) 09/25/18 Unknown Urine Ketones Neg mg/dL (Negative) 09/25/18 Unknown Urine Blood Lg (Negative) 09/25/18 Unknown Urine Nitrite Neg (Negative) 09/25/18 Unknown Urine Bilirubin Neg (Negative) 09/25/18 Unknown Urine Urobilinogen < 2.0 mg/dL (<2.0) 09/25/18 Unknown Ur Leukocyte Esterase Mod (Negative) 09/25/18 Unknown Urine WBC (Auto) > 182.0 /HPF (0.0-6.0) H 09/25/18 Unknown Urine RBC (Auto) > 182.0 /HPF (0.0-6.0) 09/25/18 Unknown U Epithel Cells (Auto) < 1.0 /HPF (0-13.0) 09/20/18 12:46 Urine Bacteria (Auto) 2+ /HPF (Negative) 09/20/18 12:46 Urine WBC Clumps 2+ /HPF 09/20/18 12:46 Urine Mucus 2+ /HPF 09/20/18 12:46 Salicylates < 0.3 mg/dL (2.8-20.0) L 09/20/18 12:02 Urine Opiates Screen Presumptive negative 09/20/18 12:46 Urine Methadone Screen Presumptive negative 09/20/18 12:46 Acetaminophen < 5.0 ug/mL (10.0-30.0) L 09/20/18 12:02 Ur Barbiturates Screen Presumptive negative 09/20/18 12:46 Ur Phencyclidine Scrn Presumptive negative 09/20/18 12:46 Ur Amphetamines Screen Presumptive negative 09/20/18 12:46 U Benzodiazepines Scrn Presumptive negative 09/20/18 12:46 Urine Cocaine Screen Presumptive negative 09/20/18 12:46 U Marijuana (THC) Screen Presumptive negative 09/20/18 12:46 Drugs of Abuse Note Disclamer 09/20/18 12:46 Plasma/Serum Alcohol < 0.01 % (0-0.07) 09/20/18 12:02 HIV 1&2 Antibody Rapid Non react (Non React) 09/20/18 12:02 HIV P24 Antigen Non react (Non React) 09/20/18 12:02 Nutrition/Malnutrition Assess - Dietary Evaluation Nutrition/Malnutrition Findings: Nutrition Notes Start: 09/26/18 13:13 Freq: Status: Active Protocol: Document 09/28/18 11:56 SA (Rec: 09/28/18 12:22 SA [id number]) Co-Sign 09/28/18 11:56 LP Nutrition Notes Initial or Follow up Reassessment Current Diagnosis Acute Kidney Injury COPD Sepsis Other Pertinent Diagnosis ETOH dependence, GI bleed, UTI , encephalopathy Current Diet GI soft Labs/Tests Reviewed Pertinent Medications Reviewed Height 5 ft 8 in Weight 52.6 kg [place] Body Weight (kg) 70.00 BMI 17.6 Subjective/Other Information Patient states appetite is good. Pt reports eating 100% of meals and drinking 100% of ONS. Pt denies swallowing/ chewing difficulty. Patient states UBW being 125-135#. Patient denies N/V/D. Percent of energy/protein needs met: 100%/100% Burn Absent Trauma Absent #1 Nutrition Diagnosis Malnutrition Diagnosis Progress(for reassessment Continues documentation) Is patient on ventilator? No Is Patient Ambulatory and/or Out of Bed Yes REE-([place]-St. Jeor-ambulatory/OOB) [ 1749.150 NUTR.MSJOOB] Kcal/Kg value to use for calculation 39 Approximate Energy Requirements Using 2050 kcal/Kg Calculation Used for Recommendations Kcal/kg Additional Notes Protein Needs: 63-79g (1.2-1. 5g/kg) Fluid Needs: 1 ml/kcal Nutrition Intervention Change Diet Order: Continue current Add Supplement/Snack (indicate name/kcal Ensure Enlive 1 daily /protein ) Provides kCal: 350 Provides Protein (gm) 20 Goal #1 Meet at least 75% of calorie and protein needs via PO and ONS intakes Goal #2 Wt gain/maintenance Anticipated Discharge Needs: unable to determine at this time Follow-Up By: 10/02/18 Additional Comments F/U: PO and ONS intakes
[2018-09-29] MEDS: TYLENOL PO PRN (22:07)
[2018-09-30] MEDS: ATIVAN IV PRN (00:36)
[2018-09-30] MEDS: LIBRIUM PO SCH ×3 (06:03→22:57)
--- NOTE | 2018-09-30 09:41 | Progress Note ---
Assessment and Plan Assessment and plan: Patient is a 52 yo man with PMH of ETOH dependence, COPD, and malnutrition who presented to ED with AMS and was found to have encephalopathy, sepsis 2/2 UTI, and acute renal failure upon admission. There were also reports of rectal bleeding per family, GI evaluated. Patient on alcohol withdrawal protocol, restraints, no plan for endoscopy now. * Renal Ultrasound IMPRESSION: 1. Appearance of marked increased thickness of the urinary bladder wall. Balloon catheter within the urinary bladder. 2. Unremarkable appearance of the kidneys. 3. Gallstones within the gallbladder. There is no demonstration of hydronephrosis, renal calculi or renal mass of either kidney. / EtOH dependence with intoxication, now in withdrawal: treat with Ciwa, did poorly with PT, has h/o heavy alcohol drinking, cont Thiamine, Folic acid, multivitamin, CIWA protocol with librium and ativan as needed. /Sepsis due to UTI with suspected obstruction/Urinary retention: Sepsis protocol, cont IV antibiotic therapy, monitor uop q shift, IVF resuscitation therapy, follow Cx, renal u/s reviewed, no hydronephrosis /GI bleed, resolved: GI consulted in ED, cont ppi therapy, stable h/h, supportive care. No plan for endoscopy /Hematuria with Urinary Obstruction/Retention, PVR over 900 on 09/25/18, cadena placed, now gross hematuria: Urology note reviewed, /Acute toxic Encephalopathy, likely from alcohol withdrawal, CT Head no acute finding, cont neuro check, seizure precautions, CIWA protocol, aspiration precautions, treat sepsis. Consult psych /ARF (acute renal failure) with vasomotor nephropathy: cont IVF resuscitation, monitor uop q shift, repeat bmp in the am, renal u/s reviewed /UTI (urinary tract infection) complicated/complex: cont IV antibiotic therapy, supportive care, urine Cx /Severe malnutrition most likely, poa: Ammonia Technician consult /DVT prophylaxis: SCD to BLE while in bed During hospitalization I spoke with sister Christ [phone] who was visiting Disposition: continue inpatient care, d/c once mental status improves/ETOH WD resolves. Continued restraints Patient still confused, CIWA score low, will consult Neurology, Dr. Arroyo, I did called, await call back. History Interval history: Patient was seen and examined. Follow-up on current diagnosis of AMS, still present. Overnight uneventful. Patient is confused. Imaging, nursing note, chart, labs and old chart reviewed. Discussed with patient. Hospitalist Physical - Physical exam Narrative exam: Gen: thin frail, NAD, Awake, Alert but confused HEENT: NCAT, EOMI, PERRL, OP Clear Neck: supple, no adenopathy, no thyromegaly, no JVD CVS/Heart: Regular tachycardia, normal S1S2, pulses present bilaterally Chest/Lungs: CTA B, Symmetrical chest expansion, good air entry bilaterally GI/Abdomen: soft, NTND, good bowel sounds, no guarding or rebound /Bladder: no suprapubic tenderness, no CVA or paraspinal tenderness Extermity/Skin: no c/c/e, no obvious rash MSK: FROM x 4 Neuro: CN 2-12 grossly intact, doesn't follow commands Psych: confused, ignores instructions - Constitutional Vitals: Temp Pulse Resp BP Pulse Ox 100.3 F H 80 18 122/78 98 09/29/18 17:00 09/29/18 19:52 09/29/18 23:07 09/29/18 17:00 09/29/18 17:00 General appearance: Present: no acute distress Results - Labs CBC & Chem 7: 09/28/18 05:22 09/28/18 05:22 Labs: Laboratory Last Values WBC 7.9 K/mm3 (4.5-11.0) 09/28/18 05:22 RBC 3.47 M/mm3 (3.65-5.03) L 09/28/18 05:22 Hgb 10.8 gm/dl (11.8-15.2) L 09/28/18 05:22 Hct 31.9 % (35.5-45.6) L 09/28/18 05:22 MCV 92 fl (84-94) 09/28/18 05:22 MCH 31 pg (28-32) 09/28/18 05:22 MCHC 34 % (32-34) 09/28/18 05:22 RDW 13.4 % (13.2-15.2) 09/28/18 05:22 Plt Count 397 K/mm3 (140-440) 09/28/18 05:22 Lymph % (Auto) 18.6 % (13.4-35.0) 09/22/18 05:19 [place] % (Auto) 14.3 % (0.0-7.3) H 09/22/18 05:19 Eos % (Auto) 0.8 % (0.0-4.3) 09/22/18 05:19 Baso % (Auto) 0.5 % (0.0-1.8) 09/22/18 05:19 Lymph # 1.3 K/mm3 (1.2-5.4) 09/22/18 05:19 [place] # 1.0 K/mm3 (0.0-0.8) H 09/22/18 05:19 Eos # 0.1 K/mm3 (0.0-0.4) 09/22/18 05:19 Baso # 0.0 K/mm3 (0.0-0.1) 09/22/18 05:19 Seg Neutrophils % 65.8 % (40.0-70.0) 09/22/18 05:19 Seg Neutrophils # 4.7 K/mm3 (1.8-7.7) 09/22/18 05:19 PT 13.7 Sec. (12.2-14.9) 09/20/18 12:02 INR 0.99 (0.87-1.13) 09/20/18 12:02 APTT 27.9 Sec. (24.2-36.6) 09/20/18 12:02 VBG pH 7.392 (7.320-7.420) 09/20/18 12:02 Sodium 135 mmol/L (137-145) L 09/28/18 05:22 Potassium 3.8 mmol/L (3.6-5.0) 09/28/18 05:22 Chloride 98.9 mmol/L (98-107) 09/28/18 05:22 Carbon Dioxide 25 mmol/L (22-30) D 09/28/18 05:22 Anion Gap 15 mmol/L 09/28/18 05:22 BUN 13 mg/dL (9-20) 09/28/18 05:22 Creatinine 0.7 mg/dL (0.8-1.5) L 09/28/18 05:22 Estimated GFR > 60 ml/min 09/28/18 05:22 BUN/Creatinine Ratio 19 % 09/28/18 05:22 Glucose 107 mg/dL (75-100) H 09/28/18 05:22 POC Glucose 110 (70-105) H 09/28/18 13:16 Lactic Acid 1.50 mmol/L (0.7-2.0) 09/20/18 22:57 Calcium 8.5 mg/dL (8.4-10.2) 09/28/18 05:22 Magnesium 2.70 mg/dL (1.7-2.3) H 09/20/18 12:02 Total Bilirubin 0.50 mg/dL (0.1-1.2) 09/21/18 05:00 AST 8 units/L (5-40) 09/21/18 05:00 ALT < 5 units/L (7-56) L 09/21/18 05:00 Alkaline Phosphatase 45 units/L (35-129) 09/21/18 05:00 Ammonia 78.0 umol/L (25-60) H 09/20/18 12:02 Total Creatine Kinase 18 units/L (55-170) L 09/20/18 12:02 Troponin T < 0.010 ng/mL (0.00-0.029) 09/20/18 12:02 Total Protein 6.5 g/dL (6.3-8.2) D 09/21/18 05:00 Albumin 3.1 g/dL (3.9-5) L 09/21/18 05:00 Albumin/Globulin Ratio 0.9 % 09/21/18 05:00 TSH 0.966 mlU/mL (0.270-4.200) 09/20/18 12:02 Free T4 1.35 ng/dL (0.76-1.46) 09/20/18 12:02 Urine Color Red (Yellow) 09/25/18 Unknown Urine Turbidity Turbid (Clear) 09/25/18 Unknown Urine pH 7.0 (5.0-7.0) 09/25/18 Unknown Ur Specific [place] 1.018 (1.003-1.030) 09/25/18 Unknown Urine Protein 100 mg/dl mg/dL (Negative) 09/25/18 Unknown Urine Glucose (UA) Neg mg/dL (Negative) 09/25/18 Unknown Urine Ketones Neg mg/dL (Negative) 09/25/18 Unknown Urine Blood Lg (Negative) 09/25/18 Unknown Urine Nitrite Neg (Negative) 09/25/18 Unknown Urine Bilirubin Neg (Negative) 09/25/18 Unknown Urine Urobilinogen < 2.0 mg/dL (<2.0) 09/25/18 Unknown Ur Leukocyte Esterase Mod (Negative) 09/25/18 Unknown Urine WBC (Auto) > 182.0 /HPF (0.0-6.0) H 09/25/18 Unknown Urine RBC (Auto) > 182.0 /HPF (0.0-6.0) 09/25/18 Unknown U Epithel Cells (Auto) < 1.0 /HPF (0-13.0) 09/20/18 12:46 Urine Bacteria (Auto) 2+ /HPF (Negative) 09/20/18 12:46 Urine WBC Clumps 2+ /HPF 09/20/18 12:46 Urine Mucus 2+ /HPF 09/20/18 12:46 Salicylates < 0.3 mg/dL (2.8-20.0) L 09/20/18 12:02 Urine Opiates Screen Presumptive negative 09/20/18 12:46 Urine Methadone Screen Presumptive negative 09/20/18 12:46 Acetaminophen < 5.0 ug/mL (10.0-30.0) L 09/20/18 12:02 Ur Barbiturates Screen Presumptive negative 09/20/18 12:46 Ur Phencyclidine Scrn Presumptive negative 09/20/18 12:46 Ur Amphetamines Screen Presumptive negative 09/20/18 12:46 U Benzodiazepines Scrn Presumptive negative 09/20/18 12:46 Urine Cocaine Screen Presumptive negative 09/20/18 12:46 U Marijuana (THC) Screen Presumptive negative 09/20/18 12:46 Drugs of Abuse Note Disclamer 09/20/18 12:46 Plasma/Serum Alcohol < 0.01 % (0-0.07) 09/20/18 12:02 HIV 1&2 Antibody Rapid Non react (Non React) 09/20/18 12:02 HIV P24 Antigen Non react (Non React) 09/20/18 12:02 Nutrition/Malnutrition Assess - Dietary Evaluation Nutrition/Malnutrition Findings: Nutrition Notes Start: 09/26/18 13:13 Freq: Status: Active Protocol: Document 09/28/18 11:56 SA (Rec: 09/28/18 12:22 SA [id number]) Co-Sign 09/28/18 11:56 LP Nutrition Notes Initial or Follow up Reassessment Current Diagnosis Acute Kidney Injury COPD Sepsis Other Pertinent Diagnosis ETOH dependence, GI bleed, UTI , encephalopathy Current Diet GI soft Labs/Tests Reviewed Pertinent Medications Reviewed Height 5 ft 8 in Weight 52.6 kg [place] Body Weight (kg) 70.00 BMI 17.6 Subjective/Other Information Patient states appetite is good. Pt reports eating 100% of meals and drinking 100% of ONS. Pt denies swallowing/ chewing difficulty. Patient states UBW being 125-135#. Patient denies N/V/D. Percent of energy/protein needs met: 100%/100% Burn Absent Trauma Absent #1 Nutrition Diagnosis Malnutrition Diagnosis Progress(for reassessment Continues documentation) Is patient on ventilator? No Is Patient Ambulatory and/or Out of Bed Yes REE-([place]-St. Jeor-ambulatory/OOB) [ 1749.150 NUTR.MSJOOB] Kcal/Kg value to use for calculation 39 Approximate Energy Requirements Using 2050 kcal/Kg Calculation Used for Recommendations Kcal/kg Additional Notes Protein Needs: 63-79g (1.2-1. 5g/kg) Fluid Needs: 1 ml/kcal Nutrition Intervention Change Diet Order: Continue current Add Supplement/Snack (indicate name/kcal Ensure Enlive 1 daily /protein ) Provides kCal: 350 Provides Protein (gm) 20 Goal #1 Meet at least 75% of calorie and protein needs via PO and ONS intakes Goal #2 Wt gain/maintenance Anticipated Discharge Needs: unable to determine at this time Follow-Up By: 10/02/18 Additional Comments F/U: PO and ONS intakes
--- NOTE | 2018-09-30 10:51 | Progress Note ---
Subjective Date of service: 09/30/18 Principal diagnosis: hematochezia Interval history: see the dictated note patient has severe delirium and suspect Wernicke Korsakoff syndrome first CT of head not at all remarkable Thanks will follow up Objective - Vital Sign Vital Signs - 12hr 09/29/18 23:07 Respiratory 18 Rate - Laboratory Findings CBC and BMP: 09/28/18 05:22 09/28/18 05:22 Abnormal Lab Findings: Abnormal Labs 09/20/18 09/20/18 09/20/18 12:02 12:02 12:02 WBC 12.2 H RBC Hgb Hct MCHC Lymph % (Auto) 7.5 L [place] % (Auto) 10.3 H Lymph # 0.9 L [place] # 1.2 H Seg Neutrophils % 82.0 H Seg Neutrophils # 10.0 H Sodium 135 L Chloride 93.2 L Carbon Dioxide 21 L BUN 55 H Creatinine 1.6 H Glucose 157 H POC Glucose Lactic Acid 3.60 H* Magnesium ALT < 5 L [place] Total Creatine Kinase 18 L Total Protein 8.4 H Albumin Urine pH Urine WBC (Auto) Salicylates Acetaminophen 09/20/18 09/20/18 09/20/18 12:02 12:02 12:02 WBC RBC Hgb Hct MCHC Lymph % (Auto) [place] % (Auto) Lymph # [place] # Seg Neutrophils % Seg Neutrophils # Sodium Chloride Carbon Dioxide BUN Creatinine Glucose POC Glucose Lactic Acid Magnesium ALT Ammonia 78.0 H Total Creatine Kinase Total Protein Albumin Urine pH Urine WBC (Auto) Salicylates < 0.3 L Acetaminophen < 5.0 L 09/20/18 09/20/18 09/20/18 12:02 12:46 16:14 WBC RBC Hgb Hct MCHC Lymph % (Auto) [place] % (Auto) Lymph # [place] # Seg Neutrophils % Seg Neutrophils # Sodium Chloride Carbon Dioxide BUN Creatinine Glucose POC Glucose Lactic Acid 2.70 H* Magnesium 2.70 H ALT Ammonia Total Creatine Kinase Total Protein Albumin Urine pH 8.0 H Urine WBC (Auto) 150.0 H Salicylates Acetaminophen 09/20/18 09/21/18 09/21/18 23:04 05:00 05:00 WBC RBC 3.38 L Hgb 10.7 L Hct 33.4 L MCHC Lymph % (Auto) [place] % (Auto) 11.8 H Lymph # [place] # 1.1 H Seg Neutrophils % 73.9 H Seg Neutrophils # Sodium 136 L Chloride Carbon Dioxide 19 L BUN 52 H Creatinine Glucose 126 H POC Glucose 108 H Lactic Acid Magnesium ALT < 5 L Ammonia Total Creatine Kinase Total Protein Albumin 3.1 L Urine pH Urine WBC (Auto) Salicylates Acetaminophen 09/21/18 09/21/18 09/22/18 16:06 21:58 05:19 WBC RBC 3.31 L Hgb 10.5 L Hct 30.8 L MCHC Lymph % (Auto) [place] % (Auto) 14.3 H Lymph # [place] # 1.0 H Seg Neutrophils % Seg Neutrophils # Sodium Chloride Carbon Dioxide BUN Creatinine Glucose POC Glucose 124 H 112 H Lactic Acid Magnesium ALT Ammonia Total Creatine Kinase Total Protein Albumin Urine pH Urine WBC (Auto) Salicylates Acetaminophen 09/22/18 09/23/18 09/23/18 05:19 10:33 21:11 WBC RBC Hgb Hct MCHC Lymph % (Auto) [place] % (Auto) Lymph # [place] # Seg Neutrophils % Seg Neutrophils # Sodium Chloride Carbon Dioxide 18 L BUN 50 H Creatinine Glucose 118 H POC Glucose 128 H 128 H Lactic Acid Magnesium ALT Ammonia Total Creatine Kinase Total Protein Albumin Urine pH Urine WBC (Auto) Salicylates Acetaminophen 09/24/18 09/24/18 09/25/18 17:09 17:09 02:13 WBC RBC Hgb Hct 34.4 L MCHC 35 H Lymph % (Auto) [place] % (Auto) Lymph # [place] # Seg Neutrophils % Seg Neutrophils # Sodium Chloride Carbon Dioxide 17 L BUN 34 H Creatinine Glucose 132 H POC Glucose 144 H Lactic Acid Magnesium ALT Ammonia Total Creatine Kinase Total Protein Albumin Urine pH Urine WBC (Auto) Salicylates Acetaminophen 09/25/18 09/25/18 09/25/18 09:24 17:13 Unknown WBC RBC Hgb Hct MCHC Lymph % (Auto) [place] % (Auto) Lymph # [place] # Seg Neutrophils % Seg Neutrophils # Sodium Chloride Carbon Dioxide BUN Creatinine Glucose POC Glucose 134 H 109 H Lactic Acid Magnesium ALT Ammonia Total Creatine Kinase Total Protein Albumin Urine pH Urine WBC (Auto) > 182.0 H Salicylates Acetaminophen 09/27/18 09/28/18 09/28/18 05:28 05:22 05:22 WBC RBC 3.47 L Hgb 10.8 L Hct 31.9 L MCHC Lymph % (Auto) [place] % (Auto) Lymph # [place] # Seg Neutrophils % Seg Neutrophils # Sodium 135 L Chloride Carbon Dioxide BUN Creatinine 0.7 L Glucose 107 H POC Glucose 108 H Lactic Acid Magnesium ALT Ammonia Total Creatine Kinase Total Protein Albumin Urine pH Urine WBC (Auto) Salicylates Acetaminophen 09/28/18 13:16 WBC RBC Hgb Hct MCHC Lymph % (Auto) [place] % (Auto) Lymph # [place] # Seg Neutrophils % Seg Neutrophils # Sodium Chloride Carbon Dioxide BUN Creatinine Glucose POC Glucose 110 H Lactic Acid Magnesium ALT Ammonia Total Creatine Kinase Total Protein Albumin Urine pH Urine WBC (Auto) Salicylates Acetaminophen
--- NOTE | 2018-09-30 11:18 | XRay Report ---
PROCEDURE: XR CHEST 1V AP TECHNIQUE: Chest, one view HISTORY: fever COMPARISON: 09/20/2018 FINDINGS: The heart size is normal. There is no pulmonary vascular congestion seen. Mediastinal contours are normal. Lungs are clear. There is no pleural effusion seen. There is no pneumothorax seen. IMPRESSION: No acute abnormality identified. This document is electronically signed by Silvia Odell MD., September 30 2018 11:16:26 AM ET
[2018-09-30] MEDS: PREVACID SOLUTAB FEEDTUBE SCH ×2 (11:56→22:57)
[2018-09-30] MEDS: SODIUM CHLORIDE FLUSH SYRINGE 10 ML IV SCH ×2 (11:56→22:57)
[2018-09-30 14:08] LABS: Bilirubin,Urine NEG (Negative); Blood,Urine LG (Negative); Color,Urine Yellow (Yellow); Mucus,Urine 1+ /HPF; RBC,Urine > 182.0 /HPF (0.0-6.0); Urobilinogen,Urine < 2.0 mg/dL (<2.0)
[2018-09-30 14:09] LABS: WBC,Urine > 182.0 /HPF (0.0-6.0)
[2018-09-30] MEDS: PERCOCET 5/325 PO PRN ×2 (18:14→22:59)
--- NOTE | 2018-09-30 22:38 | Consultation ---
HISTORY OF PRESENT ILLNESS: This is a 52-year-old white male that is admitted to [facility] on 09/20/2018 because of altered mental status. Emergency Room Department was called. The patient was apparently confused, not acting like his normal self and had had a fever. Sister stated that he is a daily drinker and was not able to get much of a history on presentation to the hospital. He has no known allergies. He is not taking medication. Initial assessment was for altered mental status. He had a CT scan of the head, which was obtained on the day of admission. I have had an opportunity to review this and miles and white matter normal. There is, however, enlarged sulcal widening over the frontal lobes suggestive of frontal lobe atrophy. Posterior fossa structures are normal. There is no cerebellar atrophy. The fourth ventricle has a normal shape and appearance. On presentation to the hospital, the patient's examination shows that he is very confused, talks inappropriately. His present electrolytes are unremarkable. His hematocrit is 31.9. His white blood count of 7900. He does have evidence of urinary tract infection, however. Serologies have not yet returned to the chart and there are no reports of any toxicology since admission, but on the admission note, his blood alcohol level was negative. He does not show any evidence of any illicit drugs such as cocaine or methamphetamine. On the initial evaluation, HIV was nonreactive. Coagulation profile shows a PT of 13.7 PHYSICAL EXAMINATION: Examination shows him to be alert, but highly inappropriate, talking gibberish at times. He can follow simple commands. 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 His motor tone is normal. No tremors or asterixis are noted. No hypertonicity is present. No dystonia is noted. Visual baron are fully, responds to questions well. He is reactive and appropriate as far as command following but he quickly drifts away and cannot be attentive to simple questions. IMPRESSION: Altered mental status with encephalopathy. We would recommend MRI scan of brain. Obtain EEG. He does seem to have an organic delirium. This could represent Wernicke-Korsakoff syndrome and the alcoholic, especially with his very bizarre responses. I do not see any family members here to obtain a cross history from, although I did note the sister's history of him being a heavy drinker on a daily basis. JOB# [id number] RISHI/YAKOV
[2018-09-30] MEDS: HABITROL TD SCH (22:57)
[2018-10-01] MEDS: LIBRIUM PO SCH ×3 (06:05→22:52)
[2018-10-01 06:55] LABS: Hematocrit 31.8 % (35.5-45.6); Hemoglobin 10.9 gm/dl (11.8-15.2); Mean Corpuscular HGB Conc 34 % (32-34); Mean Corpuscular Volume 91 fl (84-94); Platelet Count 357 K/mm3 (140-440); Red Cell Distribution Width 13.7 % (13.2-15.2)
[2018-10-01 07:14] LABS: BUN/Creatinine Ratio 16; Blood Urea Nitrogen 13 mg/dL (9-20); Calcium 8.7 mg/dL (8.4-10.2); Hemolysis Index 3
--- NOTE | 2018-10-01 08:10 | Progress Note ---
Subjective Date of service: 10/01/18 Principal diagnosis: hematochezia Interval history: patient manifests delirium and confusion... may need further work up suspect Wernicke Korsakoff Syndrome EEG pending Thanks will follow Objective - Vital Sign Vital Signs - 12hr 09/30/18 09/30/18 09/30/18 20:39 22:00 22:59 Temperature Pulse Rate Pulse Rate [ 83 From Monitor] Respiratory 18 Rate Respiratory 18 Rate [R Wrist] Blood Pressure Blood Pressure [Right] O2 Sat by Pulse 94 Oximetry 09/30/18 09/30/18 10/01/18 23:00 23:59 04:59 Temperature 98.0 F 97.4 F L Pulse Rate 66 75 Pulse Rate [ From Monitor] Respiratory 20 18 18 Rate Respiratory Rate [R Wrist] Blood Pressure 109/73 Blood Pressure 103/66 [Right] O2 Sat by Pulse 96 Oximetry - Laboratory Findings CBC and BMP: 10/01/18 05:45 10/01/18 05:45 Abnormal Lab Findings: Abnormal Labs 09/20/18 09/20/18 09/20/18 12:02 12:02 12:02 WBC 12.2 H RBC Hgb Hct MCHC Lymph % (Auto) 7.5 L [place] % (Auto) 10.3 H Lymph # 0.9 L [place] # 1.2 H Seg Neutrophils % 82.0 H Seg Neutrophils # 10.0 H Sodium 135 L Chloride 93.2 L Carbon Dioxide 21 L BUN 55 H Creatinine 1.6 H Glucose 157 H POC Glucose Lactic Acid 3.60 H* Magnesium ALT < 5 L Ammonia Total Creatine Kinase 18 L Total Protein 8.4 H Albumin Urine pH Urine WBC (Auto) Salicylates Acetaminophen 09/20/18 09/20/18 09/20/18 12:02 12:02 12:02 WBC RBC Hgb Hct MCHC Lymph % (Auto) [place] % (Auto) Lymph # [place] # Seg Neutrophils % Seg Neutrophils # Sodium Chloride Carbon Dioxide BUN Creatinine Glucose POC Glucose Lactic Acid Magnesium ALT Ammonia 78.0 H Total Creatine Kinase Total Protein Albumin Urine pH Urine WBC (Auto) Salicylates < 0.3 L Acetaminophen < 5.0 L 09/20/18 09/20/18 09/20/18 12:02 12:46 16:14 WBC RBC Hgb Hct MCHC Lymph % (Auto) [place] % (Auto) Lymph # [place] # Seg Neutrophils % Seg Neutrophils # Sodium Chloride Carbon Dioxide BUN Creatinine Glucose POC Glucose Lactic Acid 2.70 H* Magnesium 2.70 H ALT Ammonia Total Creatine Kinase Total Protein Albumin Urine pH 8.0 H Urine WBC (Auto) 150.0 H Salicylates Acetaminophen 09/20/18 09/21/18 09/21/18 23:04 05:00 05:00 WBC RBC 3.38 L Hgb 10.7 L Hct 33.4 L MCHC Lymph % (Auto) [place] % (Auto) 11.8 H Lymph # [place] # 1.1 H Seg Neutrophils % 73.9 H Seg Neutrophils # Sodium 136 L Chloride Carbon Dioxide 19 L BUN 52 H Creatinine Glucose 126 H POC Glucose 108 H Lactic Acid Magnesium ALT < 5 L Ammonia Total Creatine Kinase Total Protein Albumin 3.1 L Urine pH Urine WBC (Auto) Salicylates Acetaminophen 09/21/18 09/21/18 09/22/18 16:06 21:58 05:19 WBC RBC 3.31 L Hgb 10.5 L Hct 30.8 L MCHC Lymph % (Auto) [place] % (Auto) 14.3 H Lymph # [place] # 1.0 H Seg Neutrophils % Seg Neutrophils # Sodium Chloride Carbon Dioxide BUN Creatinine Glucose POC Glucose 124 H 112 H Lactic Acid Magnesium ALT Ammonia Total Creatine Kinase Total Protein Albumin Urine pH Urine WBC (Auto) Salicylates Acetaminophen 09/22/18 09/23/18 09/23/18 05:19 10:33 21:11 WBC RBC Hgb Hct MCHC Lymph % (Auto) [place] % (Auto) Lymph # [place] # Seg Neutrophils % Seg Neutrophils # Sodium Chloride Carbon Dioxide 18 L BUN 50 H Creatinine Glucose 118 H POC Glucose 128 H 128 H Lactic Acid Magnesium ALT Ammonia Total Creatine Kinase Total Protein Albumin Urine pH Urine WBC (Auto) Salicylates Acetaminophen 09/24/18 09/24/18 09/25/18 17:09 17:09 02:13 WBC RBC Hgb Hct 34.4 L MCHC 35 H Lymph % (Auto) [place] % (Auto) Lymph # [place] # Seg Neutrophils % Seg Neutrophils # Sodium Chloride Carbon Dioxide 17 L BUN 34 H Creatinine Glucose 132 H POC Glucose 144 H Lactic Acid Magnesium ALT Ammonia Total Creatine Kinase Total Protein Albumin Urine pH Urine WBC (Auto) Salicylates Acetaminophen 09/25/18 09/25/18 09/25/18 09:24 17:13 Unknown WBC RBC Hgb Hct MCHC Lymph % (Auto) [place] % (Auto) Lymph # [place] # Seg Neutrophils % Seg Neutrophils # Sodium Chloride Carbon Dioxide BUN Creatinine Glucose POC Glucose 134 H 109 H Lactic Acid Magnesium ALT Ammonia Total Creatine Kinase Total Protein Albumin Urine pH Urine WBC (Auto) > 182.0 H Salicylates Acetaminophen 09/27/18 09/28/18 09/28/18 05:28 05:22 05:22 WBC RBC 3.47 L Hgb 10.8 L Hct 31.9 L MCHC Lymph % (Auto) [place] % (Auto) Lymph # [place] # Seg Neutrophils % Seg Neutrophils # Sodium 135 L Chloride Carbon Dioxide BUN Creatinine 0.7 L Glucose 107 H POC Glucose 108 H Lactic Acid Magnesium ALT Ammonia Total Creatine Kinase Total Protein Albumin Urine pH Urine WBC (Auto) Salicylates Acetaminophen 09/28/18 09/30/18 10/01/18 13:16 13:52 05:45 WBC RBC 3.50 L Hgb 10.9 L Hct 31.8 L MCHC Lymph % (Auto) [place] % (Auto) Lymph # [place] # Seg Neutrophils % Seg Neutrophils # Sodium Chloride Carbon Dioxide BUN Creatinine Glucose POC Glucose 110 H Lactic Acid Magnesium ALT Ammonia Total Creatine Kinase Total Protein Albumin Urine pH Urine WBC (Auto) > 182.0 H Salicylates Acetaminophen 10/01/18 05:45 WBC RBC Hgb Hct MCHC Lymph % (Auto) [place] % (Auto) Lymph # [place] # Seg Neutrophils % Seg Neutrophils # Sodium Chloride 96.0 L Carbon Dioxide BUN Creatinine Glucose 113 H POC Glucose Lactic Acid Magnesium ALT Ammonia Total Creatine Kinase Total Protein Albumin Urine pH Urine WBC (Auto) Salicylates Acetaminophen
[2018-10-01] MEDS: HABITROL TD SCH (10:22)
[2018-10-01] MEDS: PREVACID SOLUTAB FEEDTUBE SCH ×2 (10:22→22:55)
[2018-10-01] MEDS: SODIUM CHLORIDE FLUSH SYRINGE 10 ML IV SCH ×2 (10:23→22:55)
[2018-10-01] MEDS: ATIVAN IV PRN (14:11)
--- NOTE | 2018-10-01 15:44 | Progress Note ---
Assessment and Plan Assessment and plan: Patient is a 52 yo man with PMH of ETOH dependence, COPD, and malnutrition who presented to ED with AMS and was found to have encephalopathy, sepsis 2/2 UTI, and acute renal failure upon admission. There were also reports of rectal bleeding per family, GI evaluated. Patient on alcohol withdrawal protocol, restraints, no plan for endoscopy now. * Renal Ultrasound IMPRESSION: 1. Appearance of marked increased thickness of the urinary bladder wall. Balloon catheter within the urinary bladder. 2. Unremarkable appearance of the kidneys. 3. Gallstones within the gallbladder. There is no demonstration of hydronephrosis, renal calculi or renal mass of either kidney. / EtOH dependence with intoxication, now in withdrawal: treat with [place], did poorly with PT, has h/o heavy alcohol drinking, cont Thiamine, Folic acid, multivitamin, CIWA protocol with librium and ativan as needed. /Sepsis due to UTI with suspected obstruction/Urinary retention: Sepsis protocol, cont IV antibiotic therapy, monitor uop q shift, IVF resuscitation therapy, follow Cx, renal u/s reviewed, no hydronephrosis /GI bleed, resolved: GI consulted in ED, cont ppi therapy, stable h/h, supportive care. No plan for endoscopy /Hematuria with Urinary Obstruction/Retention, PVR over 900 on 09/25/18, cadena placed, now gross hematuria: Urology note reviewed, /Acute toxic Encephalopathy, likely from alcohol withdrawal, CT Head no acute finding, cont neuro check, seizure precautions, CIWA protocol, aspiration precautions, treat sepsis. Consult psych /ARF (acute renal failure) with vasomotor nephropathy: cont IVF resuscitation, monitor uop q shift, repeat bmp in the am, renal u/s reviewed /UTI (urinary tract infection) complicated/complex: cont IV antibiotic therapy, supportive care, urine Cx /Severe malnutrition most likely, poa: Alumni Coordinator consult /DVT prophylaxis: SCD to BLE while in bed During hospitalization I spoke with sister Christ [phone] who was visiting Disposition: continue inpatient care, d/c once mental status improves/ETOH WD resolves. Continued restraints Patient still confused, CIWA score 7 EEG pending History Interval history: Patient was seen and examined. Follow-up on current diagnosis of AMS, still present. Overnight uneventful. Patient is confused. Imaging, nursing note, chart, labs and old chart reviewed. Discussed with patient. Hospitalist Physical - Physical exam Narrative exam: Gen: thin frail, NAD, Awake, Alert but confused HEENT: NCAT, EOMI, PERRL, OP Clear Neck: supple, no adenopathy, no thyromegaly, no JVD CVS/Heart: Regular tachycardia, normal S1S2, pulses present bilaterally Chest/Lungs: CTA B, Symmetrical chest expansion, good air entry bilaterally GI/Abdomen: soft, NTND, good bowel sounds, no guarding or rebound /Bladder: no suprapubic tenderness, no CVA or paraspinal tenderness Extermity/Skin: no c/c/e, no obvious rash MSK: FROM x 4 Neuro: CN 2-12 grossly intact, doesn't follow commands Psych: confused, ignores instructions - Constitutional Vitals: Temp Pulse Resp BP Pulse Ox 97.9 F 91 H 20 92/65 97 10/01/18 13:40 10/01/18 13:40 10/01/18 13:40 10/01/18 13:40 10/01/18 13:40 General appearance: Present: no acute distress Results - Labs CBC & Chem 7: 10/01/18 05:45 10/01/18 05:45 Labs: Laboratory Last Values WBC 6.7 K/mm3 (4.5-11.0) 10/01/18 05:45 RBC 3.50 M/mm3 (3.65-5.03) L 10/01/18 05:45 Hgb 10.9 gm/dl (11.8-15.2) L 10/01/18 05:45 Hct 31.8 % (35.5-45.6) L 10/01/18 05:45 MCV 91 fl (84-94) 10/01/18 05:45 MCH 31 pg (28-32) 10/01/18 05:45 MCHC 34 % (32-34) 10/01/18 05:45 RDW 13.7 % (13.2-15.2) 10/01/18 05:45 Plt Count 357 K/mm3 (140-440) 10/01/18 05:45 Lymph % (Auto) 18.6 % (13.4-35.0) 09/22/18 05:19 [place] % (Auto) 14.3 % (0.0-7.3) H 09/22/18 05:19 Eos % (Auto) 0.8 % (0.0-4.3) 09/22/18 05:19 Baso % (Auto) 0.5 % (0.0-1.8) 09/22/18 05:19 Lymph # 1.3 K/mm3 (1.2-5.4) 09/22/18 05:19 [place] # 1.0 K/mm3 (0.0-0.8) H 09/22/18 05:19 Eos # 0.1 K/mm3 (0.0-0.4) 09/22/18 05:19 Baso # 0.0 K/mm3 (0.0-0.1) 09/22/18 05:19 Seg Neutrophils % 65.8 % (40.0-70.0) 09/22/18 05:19 Seg Neutrophils # 4.7 K/mm3 (1.8-7.7) 09/22/18 05:19 PT 13.7 Sec. (12.2-14.9) 09/20/18 12:02 INR 0.99 (0.87-1.13) 09/20/18 12:02 APTT 27.9 Sec. (24.2-36.6) 09/20/18 12:02 VBG pH 7.392 (7.320-7.420) 09/20/18 12:02 Sodium 137 mmol/L (137-145) 10/01/18 05:45 Potassium 4.1 mmol/L (3.6-5.0) 10/01/18 05:45 Chloride 96.0 mmol/L (98-107) L 10/01/18 05:45 Carbon Dioxide 30 mmol/L (22-30) 10/01/18 05:45 Anion Gap 15 mmol/L 10/01/18 05:45 BUN 13 mg/dL (9-20) 10/01/18 05:45 Creatinine 0.8 mg/dL (0.8-1.5) 10/01/18 05:45 Estimated GFR > 60 ml/min 10/01/18 05:45 BUN/Creatinine Ratio 16 % 10/01/18 05:45 Glucose 113 mg/dL (75-100) H 10/01/18 05:45 POC Glucose 110 (70-105) H 09/28/18 13:16 Lactic Acid 1.50 mmol/L (0.7-2.0) 09/20/18 22:57 Calcium 8.7 mg/dL (8.4-10.2) 10/01/18 05:45 Magnesium 2.70 mg/dL (1.7-2.3) H 09/20/18 12:02 Total Bilirubin 0.50 mg/dL (0.1-1.2) 09/21/18 05:00 AST 8 units/L (5-40) 09/21/18 05:00 ALT < 5 units/L (7-56) L 09/21/18 05:00 Alkaline Phosphatase 45 units/L (35-129) 09/21/18 05:00 Ammonia 78.0 umol/L (25-60) H 09/20/18 12:02 Total Creatine Kinase 18 units/L (55-170) L 09/20/18 12:02 Troponin T < 0.010 ng/mL (0.00-0.029) 09/20/18 12:02 Total Protein 6.5 g/dL (6.3-8.2) D 09/21/18 05:00 Albumin 3.1 g/dL (3.9-5) L 09/21/18 05:00 Albumin/Globulin Ratio 0.9 % 09/21/18 05:00 TSH 0.966 mlU/mL (0.270-4.200) 09/20/18 12:02 Free T4 1.35 ng/dL (0.76-1.46) 09/20/18 12:02 Urine Color Yellow (Yellow) 09/30/18 13:52 Urine Turbidity Cloudy (Clear) 09/30/18 13:52 Urine pH 5.0 (5.0-7.0) 09/30/18 13:52 Ur Specific [place] 1.018 (1.003-1.030) 09/30/18 13:52 Urine Protein 100 mg/dl mg/dL (Negative) 09/30/18 13:52 Urine Glucose (UA) 50 mg/dL (Negative) 09/30/18 13:52 Urine Ketones Neg mg/dL (Negative) 09/30/18 13:52 Urine Blood Lg (Negative) 09/30/18 13:52 Urine Nitrite Neg (Negative) 09/30/18 13:52 Urine Bilirubin Neg (Negative) 09/30/18 13:52 Urine Urobilinogen < 2.0 mg/dL (<2.0) 09/30/18 13:52 Ur Leukocyte Esterase Lg (Negative) 09/30/18 13:52 Urine WBC (Auto) > 182.0 /HPF (0.0-6.0) H 09/30/18 13:52 Urine RBC (Auto) > 182.0 /HPF (0.0-6.0) 09/30/18 13:52 U Epithel Cells (Auto) 1.0 /HPF (0-13.0) 09/30/18 13:52 Urine Bacteria (Auto) 2+ /HPF (Negative) 09/20/18 12:46 Urine WBC Clumps 1+ /HPF 09/30/18 13:52 Urine Mucus 1+ /HPF 09/30/18 13:52 Salicylates < 0.3 mg/dL (2.8-20.0) L 09/20/18 12:02 Urine Opiates Screen Presumptive negative 09/20/18 12:46 Urine Methadone Screen Presumptive negative 09/20/18 12:46 Acetaminophen < 5.0 ug/mL (10.0-30.0) L 09/20/18 12:02 Ur Barbiturates Screen Presumptive negative 09/20/18 12:46 Ur Phencyclidine Scrn Presumptive negative 09/20/18 12:46 Ur Amphetamines Screen Presumptive negative 09/20/18 12:46 U Benzodiazepines Scrn Presumptive negative 09/20/18 12:46 Urine Cocaine Screen Presumptive negative 09/20/18 12:46 U Marijuana (THC) Screen Presumptive negative 09/20/18 12:46 Drugs of Abuse Note Disclamer 09/20/18 12:46 Plasma/Serum Alcohol < 0.01 % (0-0.07) 09/20/18 12:02 HIV 1&2 Antibody Rapid Non react (Non React) 09/20/18 12:02 HIV P24 Antigen Non react (Non React) 09/20/18 12:02 Nutrition/Malnutrition Assess - Dietary Evaluation Nutrition/Malnutrition Findings: Nutrition Notes Start: 09/26/18 13:13 Freq: Status: Active Protocol: Document 09/28/18 11:56 SA (Rec: 09/28/18 12:22 SA [id number]) Co-Sign 09/28/18 11:56 LP Nutrition Notes Initial or Follow up Reassessment Current Diagnosis Acute Kidney Injury COPD Sepsis Other Pertinent Diagnosis ETOH dependence, GI bleed, UTI , encephalopathy Current Diet GI soft Labs/Tests Reviewed Pertinent Medications Reviewed Height 5 ft 8 in Weight 52.6 kg [place] Body Weight (kg) 70.00 BMI 17.6 Subjective/Other Information Patient states appetite is good. Pt reports eating 100% of meals and drinking 100% of ONS. Pt denies swallowing/ chewing difficulty. Patient states UBW being 125-135#. Patient denies N/V/D. Percent of energy/protein needs met: 100%/100% Burn Absent Trauma Absent #1 Nutrition Diagnosis Malnutrition Diagnosis Progress(for reassessment Continues documentation) Is patient on ventilator? No Is Patient Ambulatory and/or Out of Bed Yes REE-([place]-ambulatory/OOB) [ 1749.150 [id number]] Kcal/Kg value to use for calculation 39 Approximate Energy Requirements Using 2050 kcal/Kg Calculation Used for Recommendations Kcal/kg Additional Notes Protein Needs: 63-79g (1.2-1. 5g/kg) Fluid Needs: 1 ml/kcal Nutrition Intervention Change Diet Order: Continue current Add Supplement/Snack (indicate name/kcal Ensure Enlive 1 daily /protein ) Provides kCal: 350 Provides Protein (gm) 20 Goal #1 Meet at least 75% of calorie and protein needs via PO and ONS intakes Goal #2 Wt gain/maintenance Anticipated Discharge Needs: unable to determine at this time Follow-Up By: 10/02/18 Additional Comments F/U: PO and ONS intakes
--- NOTE | 2018-10-01 18:34 | Magnetic Resonance Report ---
PROCEDURE: MR BRAIN WO CON TECHNIQUE: Multiplanar multisequence noncontrast MR images of the brain were performed HISTORY: seizure COMPARISONS: CT brain 09/20/2018 FINDINGS: Fully formed corpus callosum. Unremarkable sella turcica, posterior pituitary bright spot, colliculi, brainstem, and posterior zaida a. Right facial superficial subcutaneous 2 cm cystic lesion. No focal restricted diffusion. No blood products. Normal T2 flow voids at the base the calvarium. Right nasal lacrimal or nasal bridge 6 mm cystic lesion. Mild cortical and cerebellar atrophy. Normal vestibular cochlear nerve sheath bundles and cerebellopontine angles. Conjugate gaze. Orbital cones and and apices are unremarkable. Minimal periventricular white matter prolonged T2 signal intensity in the left centrum semiovale. Infundibulum and optic chiasm are unremarkable. No midline shift. No mass effect. No intraventricular blood products. No extra-axial fluid collections. IMPRESSION: No acute restricted diffusion. No acute blood products. 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 Slightly advanced cortical atrophy for age. Right maxillary eminence and nasolacrimal/nasal bridge cystic lesions. Correlate with physical exam. . This document is electronically signed by Ceci De Luna MD., October 01 2018 06:32:34 PM ET
[2018-10-02] MEDS: ATIVAN IV PRN ×2 (01:51→12:53)
[2018-10-02] MEDS: LIBRIUM PO SCH ×3 (07:04→22:26)
[2018-10-02] MEDS: PREVACID SOLUTAB FEEDTUBE SCH ×2 (10:01→22:26)
[2018-10-02] MEDS: HABITROL TD SCH (10:01)
[2018-10-02] MEDS: SODIUM CHLORIDE FLUSH SYRINGE 10 ML IV SCH ×2 (10:02→22:27)
--- NOTE | 2018-10-02 12:10 | Progress Note ---
Assessment and Plan Assessment and plan: Patient is a 52 yo man with PMH of ETOH dependence, COPD, and malnutrition who presented to ED with AMS and was found to have encephalopathy, sepsis 2/2 UTI, and acute renal failure upon admission. There were also reports of rectal bleeding per family, GI evaluated. Patient on alcohol withdrawal protocol, restraints, no plan for endoscopy now. * Renal Ultrasound IMPRESSION: 1. Appearance of marked increased thickness of the urinary bladder wall. Balloon catheter within the urinary bladder. 2. Unremarkable appearance of the kidneys. 3. Gallstones within the gallbladder. There is no demonstration of hydronephrosis, renal calculi or renal mass of either kidney. / EtOH dependence with intoxication, now in withdrawal: treat with Ciwa, did poorly with PT, has h/o heavy alcohol drinking, cont Thiamine, Folic acid, multivitamin, CIWA protocol with librium and ativan as needed. /Sepsis due to UTI with suspected obstruction/Urinary retention: Sepsis protocol, cont IV antibiotic therapy, monitor uop q shift, IVF resuscitation therapy, follow Cx, renal u/s reviewed, no hydronephrosis /GI bleed, resolved: GI consulted in ED, cont ppi therapy, stable h/h, supportive care. No plan for endoscopy /Hematuria with Urinary Obstruction/Retention, PVR over 900 on 09/25/18, cadena placed, now gross hematuria: Urology note reviewed, /Acute toxic Encephalopathy, likely from alcohol withdrawal, CT Head no acute finding, cont neuro check, seizure precautions, CIWA protocol, aspiration precautions, treat sepsis. Consult psych /ARF (acute renal failure) with vasomotor nephropathy: cont IVF resuscitation, monitor uop q shift, repeat bmp in the am, renal u/s reviewed /UTI (urinary tract infection) complicated/complex: cont IV antibiotic therapy, supportive care, urine Cx /Severe malnutrition most likely, bmi 17.5 poa: [employer] Consultant consult /DVT prophylaxis: SCD to BLE while in bed During hospitalization I spoke with sister Christ [phone] who was visiting Disposition: continue inpatient care, d/c once mental status improves/ETOH WD resolves. Continued restraints Patient still confused, CIWA score still [address] Arroyo History Interval history: Patient was seen and examined. Follow-up on current diagnosis of AMS, still present. Overnight uneventful. Patient is confused. Imaging, nursing note, chart, labs and old chart reviewed. Discussed with patient. Hospitalist Physical - Physical exam Narrative exam: Gen: thin frail, NAD, Awake, Alert but confused HEENT: NCAT, EOMI, PERRL, OP Clear Neck: supple, no adenopathy, no thyromegaly, no JVD CVS/Heart: Regular tachycardia, normal S1S2, pulses present bilaterally Chest/Lungs: CTA B, Symmetrical chest expansion, good air entry bilaterally GI/Abdomen: soft, NTND, good bowel sounds, no guarding or rebound /Bladder: no suprapubic tenderness, no CVA or paraspinal tenderness Extermity/Skin: no c/c/e, no obvious rash MSK: FROM x 4 Neuro: CN 2-12 grossly intact, doesn't follow commands Psych: confused, ignores instructions - Constitutional Vitals: Temp Pulse Resp BP Pulse Ox 98.2 F 87 18 107/79 93 10/02/18 10:56 10/02/18 10:56 10/02/18 10:56 10/02/18 10:56 10/02/18 10:56 General appearance: Present: no acute distress Results - Labs CBC & Chem 7: 10/01/18 05:45 10/01/18 05:45 Labs: Laboratory Last Values WBC 6.7 K/mm3 (4.5-11.0) 10/01/18 05:45 RBC 3.50 M/mm3 (3.65-5.03) L 10/01/18 05:45 Hgb 10.9 gm/dl (11.8-15.2) L 10/01/18 05:45 Hct 31.8 % (35.5-45.6) L 10/01/18 05:45 MCV 91 fl (84-94) 10/01/18 05:45 MCH 31 pg (28-32) 10/01/18 05:45 MCHC 34 % (32-34) 10/01/18 05:45 RDW 13.7 % (13.2-15.2) 10/01/18 05:45 Plt Count 357 K/mm3 (140-440) 10/01/18 05:45 Lymph % (Auto) 18.6 % (13.4-35.0) 09/22/18 05:19 [place] % (Auto) 14.3 % (0.0-7.3) H 09/22/18 05:19 Eos % (Auto) 0.8 % (0.0-4.3) 09/22/18 05:19 Baso % (Auto) 0.5 % (0.0-1.8) 09/22/18 05:19 Lymph # 1.3 K/mm3 (1.2-5.4) 09/22/18 05:19 [place] # 1.0 K/mm3 (0.0-0.8) H 09/22/18 05:19 Eos # 0.1 K/mm3 (0.0-0.4) 09/22/18 05:19 Baso # 0.0 K/mm3 (0.0-0.1) 09/22/18 05:19 Seg Neutrophils % 65.8 % (40.0-70.0) 09/22/18 05:19 Seg Neutrophils # 4.7 K/mm3 (1.8-7.7) 09/22/18 05:19 PT 13.7 Sec. (12.2-14.9) 09/20/18 12:02 INR 0.99 (0.87-1.13) 09/20/18 12:02 APTT 27.9 Sec. (24.2-36.6) 09/20/18 12:02 VBG pH 7.392 (7.320-7.420) 09/20/18 12:02 Sodium 137 mmol/L (137-145) 10/01/18 05:45 Potassium 4.1 mmol/L (3.6-5.0) 10/01/18 05:45 Chloride 96.0 mmol/L (98-107) L 10/01/18 05:45 Carbon Dioxide 30 mmol/L (22-30) 10/01/18 05:45 Anion Gap 15 mmol/L 10/01/18 05:45 BUN 13 mg/dL (9-20) 10/01/18 05:45 Creatinine 0.8 mg/dL (0.8-1.5) 10/01/18 05:45 Estimated GFR > 60 ml/min 10/01/18 05:45 BUN/Creatinine Ratio 16 % 10/01/18 05:45 Glucose 113 mg/dL (75-100) H 10/01/18 05:45 POC Glucose 110 (70-105) H 09/28/18 13:16 Lactic Acid 1.50 mmol/L (0.7-2.0) 09/20/18 22:57 Calcium 8.7 mg/dL (8.4-10.2) 10/01/18 05:45 Magnesium 2.70 mg/dL (1.7-2.3) H 09/20/18 12:02 Total Bilirubin 0.50 mg/dL (0.1-1.2) 09/21/18 05:00 AST 8 units/L (5-40) 09/21/18 05:00 ALT < 5 units/L (7-56) L 09/21/18 05:00 Alkaline Phosphatase 45 units/L (35-129) 09/21/18 05:00 Ammonia 78.0 umol/L (25-60) H 09/20/18 12:02 Total Creatine Kinase 18 units/L (55-170) L 09/20/18 12:02 Troponin T < 0.010 ng/mL (0.00-0.029) 09/20/18 12:02 Total Protein 6.5 g/dL (6.3-8.2) D 09/21/18 05:00 Albumin 3.1 g/dL (3.9-5) L 09/21/18 05:00 Albumin/Globulin Ratio 0.9 % 09/21/18 05:00 TSH 0.966 mlU/mL (0.270-4.200) 09/20/18 12:02 Free T4 1.35 ng/dL (0.76-1.46) 09/20/18 12:02 Urine Color Yellow (Yellow) 09/30/18 13:52 Urine Turbidity Cloudy (Clear) 09/30/18 13:52 Urine pH 5.0 (5.0-7.0) 09/30/18 13:52 Ur Specific [place] 1.018 (1.003-1.030) 09/30/18 13:52 Urine Protein 100 mg/dl mg/dL (Negative) 09/30/18 13:52 Urine Glucose (UA) 50 mg/dL (Negative) 09/30/18 13:52 Urine Ketones Neg mg/dL (Negative) 09/30/18 13:52 Urine Blood Lg (Negative) 09/30/18 13:52 Urine Nitrite Neg (Negative) 09/30/18 13:52 Urine Bilirubin Neg (Negative) 09/30/18 13:52 Urine Urobilinogen < 2.0 mg/dL (<2.0) 09/30/18 13:52 Ur Leukocyte Esterase Lg (Negative) 09/30/18 13:52 Urine WBC (Auto) > 182.0 /HPF (0.0-6.0) H 09/30/18 13:52 Urine RBC (Auto) > 182.0 /HPF (0.0-6.0) 09/30/18 13:52 U Epithel Cells (Auto) 1.0 /HPF (0-13.0) 09/30/18 13:52 Urine Bacteria (Auto) 2+ /HPF (Negative) 09/20/18 12:46 Urine WBC Clumps 1+ /HPF 09/30/18 13:52 Urine Mucus 1+ /HPF 09/30/18 13:52 Salicylates < 0.3 mg/dL (2.8-20.0) L 09/20/18 12:02 Urine Opiates Screen Presumptive negative 09/20/18 12:46 Urine Methadone Screen Presumptive negative 09/20/18 12:46 Acetaminophen < 5.0 ug/mL (10.0-30.0) L 09/20/18 12:02 Ur Barbiturates Screen Presumptive negative 09/20/18 12:46 Ur Phencyclidine Scrn Presumptive negative 09/20/18 12:46 Ur Amphetamines Screen Presumptive negative 09/20/18 12:46 U Benzodiazepines Scrn Presumptive negative 09/20/18 12:46 Urine Cocaine Screen Presumptive negative 09/20/18 12:46 U Marijuana (THC) Screen Presumptive negative 09/20/18 12:46 Drugs of Abuse Note Disclamer 09/20/18 12:46 Plasma/Serum Alcohol < 0.01 % (0-0.07) 09/20/18 12:02 HIV 1&2 Antibody Rapid Non react (Non React) 09/20/18 12:02 HIV P24 Antigen Non react (Non React) 09/20/18 12:02 Nutrition/Malnutrition Assess - Dietary Evaluation Nutrition/Malnutrition Findings: Nutrition Notes Start: 09/26/18 13:13 Freq: Status: Active Protocol: Document 09/28/18 11:56 SA (Rec: 09/28/18 12:22 SA [id number]) Co-Sign 09/28/18 11:56 LP Nutrition Notes Initial or Follow up Reassessment Current Diagnosis Acute Kidney Injury COPD Sepsis Other Pertinent Diagnosis ETOH dependence, GI bleed, UTI , encephalopathy Current Diet GI soft Labs/Tests Reviewed Pertinent Medications Reviewed Height 5 ft 8 in Weight 52.6 kg [place] Body Weight (kg) 70.00 BMI 17.6 Subjective/Other Information Patient states appetite is good. Pt reports eating 100% of meals and drinking 100% of ONS. Pt denies swallowing/ chewing difficulty. Patient states UBW being 125-135#. Patient denies N/V/D. Percent of energy/protein needs met: 100%/100% Burn Absent Trauma Absent #1 Nutrition Diagnosis Malnutrition Diagnosis Progress(for reassessment Continues documentation) Is patient on ventilator? No Is Patient Ambulatory and/or Out of Bed Yes REE-([place] or-ambulatory/OOB) [ 1749.150 NUTR.MSJOOB] Kcal/Kg value to use for calculation 39 Approximate Energy Requirements Using 2050 kcal/Kg Calculation Used for Recommendations Kcal/kg Additional Notes Protein Needs: 63-79g (1.2-1. 5g/kg) Fluid Needs: 1 ml/kcal Nutrition Intervention Change Diet Order: Continue current Add Supplement/Snack (indicate name/kcal Ensure Enlive 1 daily /protein ) Provides kCal: 350 Provides Protein (gm) 20 Goal #1 Meet at least 75% of calorie and protein needs via PO and ONS intakes Goal #2 Wt gain/maintenance Anticipated Discharge Needs: unable to determine at this time Follow-Up By: 10/02/18 Additional Comments F/U: PO and ONS intakes
--- NOTE | 2018-10-02 12:41 | Progress Note ---
Subjective Date of service: 10/02/18 Principal diagnosis: hematochezia Interval history: eating well fully alert no focal weakness still very confused and inappropriate EEG showed slowing but no epileptiform discharges EEG suggestive of Wernicke Korsakoff syndrome Objective - Vital Sign Vital Signs - 12hr 10/02/18 10/02/18 05:51 10:56 Temperature 98.3 F 98.2 F Pulse Rate 85 87 Respiratory 16 18 Rate Blood Pressure 111/79 107/79 O2 Sat by Pulse 99 93 Oximetry - Laboratory Findings CBC and BMP: 10/01/18 05:45 10/01/18 05:45 Abnormal Lab Findings: Abnormal Labs 09/20/18 09/20/18 09/20/18 12:02 12:02 12:02 WBC 12.2 H RBC Hgb Hct MCHC Lymph % (Auto) 7.5 L [place] % (Auto) 10.3 H Lymph # 0.9 L [place] # 1.2 H Seg Neutrophils % 82.0 H Seg Neutrophils # 10.0 H Sodium 135 L Chloride 93.2 L Carbon Dioxide 21 L BUN 55 H Creatinine 1.6 H Glucose 157 H POC Glucose Lactic Acid 3.60 H* Magnesium ALT < 5 L Ammonia Total Creatine Kinase 18 L Total Protein 8.4 H Albumin Urine pH Urine WBC (Auto) Salicylates Acetaminophen 09/20/18 09/20/18 09/20/18 12:02 12:02 12:02 WBC RBC Hgb Hct MCHC Lymph % (Auto) [place] % (Auto) Lymph # [place] # Seg Neutrophils % Seg Neutrophils # Sodium Chloride Carbon Dioxide BUN Creatinine Glucose POC Glucose Lactic Acid Magnesium ALT Ammonia 78.0 H Total Creatine Kinase Total Protein Albumin Urine pH Urine WBC (Auto) Salicylates < 0.3 L Acetaminophen < 5.0 L 09/20/18 09/20/18 09/20/18 12:02 12:46 16:14 WBC RBC Hgb Hct MCHC Lymph % (Auto) [place] % (Auto) Lymph # [place] # Seg Neutrophils % Seg Neutrophils # Sodium Chloride Carbon Dioxide BUN Creatinine Glucose POC Glucose Lactic Acid 2.70 H* Magnesium 2.70 H ALT Ammonia Total Creatine Kinase Total Protein Albumin Urine pH 8.0 H Urine WBC (Auto) 150.0 H Salicylates Acetaminophen 09/20/18 09/21/18 09/21/18 23:04 05:00 05:00 WBC RBC 3.38 L Hgb 10.7 L Hct 33.4 L MCHC Lymph % (Auto) [place] % (Auto) 11.8 H Lymph # [place] # 1.1 H Seg Neutrophils % 73.9 H Seg Neutrophils # Sodium 136 L Chloride Carbon Dioxide 19 L BUN 52 H Creatinine Glucose 126 H POC Glucose 108 H Lactic Acid Magnesium ALT < 5 L Ammonia Total Creatine Kinase Total Protein Albumin 3.1 L Urine pH Urine WBC (Auto) Salicylates Acetaminophen 09/21/18 09/21/18 09/22/18 16:06 21:58 05:19 WBC RBC 3.31 L Hgb 10.5 L Hct 30.8 L MCHC Lymph % (Auto) [place] % (Auto) 14.3 H Lymph # [place] # 1.0 H Seg Neutrophils % Seg Neutrophils # Sodium Chloride Carbon Dioxide BUN Creatinine Glucose POC Glucose 124 H 112 H Lactic Acid Magnesium ALT Ammonia Total Creatine Kinase Total Protein Albumin Urine pH Urine WBC (Auto) Salicylates Acetaminophen 09/22/18 09/23/18 09/23/18 05:19 10:33 21:11 WBC RBC Hgb Hct MCHC Lymph % (Auto) [place] % (Auto) Lymph # [place] # Seg Neutrophils % Seg Neutrophils # Sodium Chloride Carbon Dioxide 18 L BUN 50 H Creatinine Glucose 118 H POC Glucose 128 H 128 H Lactic Acid Magnesium ALT Ammonia Total Creatine Kinase Total Protein Albumin Urine pH Urine WBC (Auto) Salicylates Acetaminophen 09/24/18 09/24/18 09/25/18 17:09 17:09 02:13 WBC RBC Hgb Hct 34.4 L MCHC 35 H Lymph % (Auto) [place] % (Auto) Lymph # [place] # Seg Neutrophils % Seg Neutrophils # Sodium Chloride Carbon Dioxide 17 L BUN 34 H Creatinine Glucose 132 H POC Glucose 144 H Lactic Acid Magnesium ALT Ammonia Total Creatine Kinase Total Protein Albumin Urine pH Urine WBC (Auto) Salicylates Acetaminophen 09/25/18 09/25/18 09/25/18 09:24 17:13 Unknown WBC RBC Hgb Hct MCHC Lymph % (Auto) [place] % (Auto) Lymph # [place] # Seg Neutrophils % Seg Neutrophils # Sodium Chloride Carbon Dioxide BUN Creatinine Glucose POC Glucose 134 H 109 H Lactic Acid Magnesium ALT Ammonia Total Creatine Kinase Total Protein Albumin Urine pH Urine WBC (Auto) > 182.0 H Salicylates Acetaminophen 09/27/18 09/28/18 09/28/18 05:28 05:22 05:22 WBC RBC 3.47 L Hgb 10.8 L Hct 31.9 L MCHC Lymph % (Auto) [place] % (Auto) Lymph # [place] # Seg Neutrophils % Seg Neutrophils # Sodium 135 L Chloride Carbon Dioxide BUN Creatinine 0.7 L Glucose 107 H POC Glucose 108 H Lactic Acid Magnesium ALT Ammonia Total Creatine Kinase Total Protein Albumin Urine pH Urine WBC (Auto) Salicylates Acetaminophen 09/28/18 09/30/18 10/01/18 13:16 13:52 05:45 WBC RBC 3.50 L Hgb 10.9 L Hct 31.8 L MCHC Lymph % (Auto) [place] % (Auto) Lymph # [place] # Seg Neutrophils % Seg Neutrophils # Sodium Chloride Carbon Dioxide BUN Creatinine Glucose POC Glucose 110 H Lactic Acid Magnesium ALT Ammonia Total Creatine Kinase Total Protein Albumin Urine pH Urine WBC (Auto) > 182.0 H Salicylates Acetaminophen 10/01/18 05:45 WBC RBC Hgb Hct MCHC Lymph % (Auto) [place] % (Auto) Lymph # [place] # Seg Neutrophils % Seg Neutrophils # Sodium Chloride 96.0 L Carbon Dioxide BUN Creatinine Glucose 113 H POC Glucose Lactic Acid Magnesium ALT Ammonia Total Creatine Kinase Total Protein Albumin Urine pH Urine WBC (Auto) Salicylates Acetaminophen
[2018-10-02] MEDS: MIRALAX 3350 PO SCH (18:01)
[2018-10-03] MEDS: MIRALAX 3350 PO SCH (10:00)
[2018-10-03] MEDS: ATIVAN IV PRN (11:00)
[2018-10-03] MEDS: LIBRIUM PO SCH ×3 (11:51→22:10)
[2018-10-03] MEDS: PERCOCET 5/325 PO PRN (11:52)
[2018-10-03] MEDS: HABITROL TD SCH (11:59)
[2018-10-03] MEDS: SODIUM CHLORIDE FLUSH SYRINGE 10 ML IV SCH ×2 (12:00→22:10)
[2018-10-03] MEDS: PREVACID SOLUTAB FEEDTUBE SCH ×2 (12:01→22:11)
--- NOTE | 2018-10-03 12:15 | Progress Note ---
Assessment and Plan Assessment and plan: Patient is a 52 yo man with PMH of ETOH dependence, COPD, and malnutrition who presented to ED with AMS and was found to have encephalopathy, sepsis 2/2 UTI, and acute renal failure upon admission. There were also reports of rectal bleeding per family, GI evaluated. Patient on alcohol withdrawal protocol, restraints, no plan for endoscopy now. * Renal Ultrasound IMPRESSION: 1. Appearance of marked increased thickness of the urinary bladder wall. Balloon catheter within the urinary bladder. 2. Unremarkable appearance of the kidneys. 3. Gallstones within the gallbladder. There is no demonstration of hydronephrosis, renal calculi or renal mass of either kidney. / EtOH dependence with intoxication, now in withdrawal: treat with [place], did poorly with PT, has h/o heavy alcohol drinking, cont Thiamine, Folic acid, multivitamin, CIWA protocol with librium and ativan as needed. /Sepsis due to UTI with suspected obstruction/Urinary retention: Sepsis protocol, cont IV antibiotic therapy, monitor uop q shift, IVF resuscitation therapy, follow Cx, renal u/s reviewed, no hydronephrosis /GI bleed, resolved: GI consulted in ED, cont ppi therapy, stable h/h, supportive care. No plan for endoscopy /Hematuria with Urinary Obstruction/Retention, PVR over 900 on 09/25/18, cadena placed, now gross hematuria: Urology note reviewed, /Acute toxic Encephalopathy, likely from alcohol withdrawal, CT Head no acute finding, cont neuro check, seizure precautions, CIWA protocol, aspiration precautions, treat sepsis. Consult psych /ARF (acute renal failure) with vasomotor nephropathy: cont IVF resuscitation, monitor uop q shift, repeat bmp in the am, renal u/s reviewed /UTI (urinary tract infection) complicated/complex: cont IV antibiotic therapy, supportive care, urine Cx /Severe malnutrition most likely, bmi 17.5 poa: [employer] Operator consult /DVT prophylaxis: SCD to BLE while in bed During hospitalization I spoke with sister Christ [phone] who was visiting Disposition: continue inpatient care, d/c once mental status improves/ETOH WD resolves. Continued restraints Patient still confused, CIWA score pending, d/w nurse EEG per Dr. Arroyo==> EEG suggestive of Wernicke Korsakoff syndrome History Interval history: Patient was seen and examined. Follow-up on current diagnosis of AMS, still present. Overnight uneventful. Patient is confused. Imaging, nursing note, chart, labs and old chart reviewed. Discussed with patient. Hospitalist Physical - Physical exam Narrative exam: Gen: thin frail, NAD, Awake, Alert but confused HEENT: NCAT, EOMI, PERRL, OP Clear Neck: supple, no adenopathy, no thyromegaly, no JVD CVS/Heart: Regular tachycardia, normal S1S2, pulses present bilaterally Chest/Lungs: CTA B, Symmetrical chest expansion, good air entry bilaterally GI/Abdomen: soft, NTND, good bowel sounds, no guarding or rebound /Bladder: no suprapubic tenderness, no CVA or paraspinal tenderness Extermity/Skin: no c/c/e, no obvious rash MSK: FROM x 4 Neuro: CN 2-12 grossly intact, doesn't follow commands Psych: confused, ignores instructions - Constitutional Vitals: Temp Pulse Resp BP Pulse Ox 97.8 F 77 16 130/84 93 10/03/18 06:17 10/03/18 06:17 10/03/18 06:17 10/03/18 06:17 10/03/18 06:17 General appearance: Present: no acute distress Results - Labs CBC & Chem 7: 10/01/18 05:45 10/01/18 05:45 Labs: Laboratory Last Values WBC 6.7 K/mm3 (4.5-11.0) 10/01/18 05:45 RBC 3.50 M/mm3 (3.65-5.03) L 10/01/18 05:45 Hgb 10.9 gm/dl (11.8-15.2) L 10/01/18 05:45 Hct 31.8 % (35.5-45.6) L 10/01/18 05:45 MCV 91 fl (84-94) 10/01/18 05:45 MCH 31 pg (28-32) 10/01/18 05:45 MCHC 34 % (32-34) 10/01/18 05:45 RDW 13.7 % (13.2-15.2) 10/01/18 05:45 Plt Count 357 K/mm3 (140-440) 10/01/18 05:45 Lymph % (Auto) 18.6 % (13.4-35.0) 09/22/18 05:19 [place] % (Auto) 14.3 % (0.0-7.3) H 09/22/18 05:19 Eos % (Auto) 0.8 % (0.0-4.3) 09/22/18 05:19 Baso % (Auto) 0.5 % (0.0-1.8) 09/22/18 05:19 Lymph # 1.3 K/mm3 (1.2-5.4) 09/22/18 05:19 [place] # 1.0 K/mm3 (0.0-0.8) H 09/22/18 05:19 Eos # 0.1 K/mm3 (0.0-0.4) 09/22/18 05:19 Baso # 0.0 K/mm3 (0.0-0.1) 09/22/18 05:19 Seg Neutrophils % 65.8 % (40.0-70.0) 09/22/18 05:19 Seg Neutrophils # 4.7 K/mm3 (1.8-7.7) 09/22/18 05:19 PT 13.7 Sec. (12.2-14.9) 09/20/18 12:02 INR 0.99 (0.87-1.13) 09/20/18 12:02 APTT 27.9 Sec. (24.2-36.6) 09/20/18 12:02 VBG pH 7.392 (7.320-7.420) 09/20/18 12:02 Sodium 137 mmol/L (137-145) 10/01/18 05:45 Potassium 4.1 mmol/L (3.6-5.0) 10/01/18 05:45 Chloride 96.0 mmol/L (98-107) L 10/01/18 05:45 Carbon Dioxide 30 mmol/L (22-30) 10/01/18 05:45 Anion Gap 15 mmol/L 10/01/18 05:45 BUN 13 mg/dL (9-20) 10/01/18 05:45 Creatinine 0.8 mg/dL (0.8-1.5) 10/01/18 05:45 Estimated GFR > 60 ml/min 10/01/18 05:45 BUN/Creatinine Ratio 16 % 10/01/18 05:45 Glucose 113 mg/dL (75-100) H 10/01/18 05:45 POC Glucose 110 (70-105) H 09/28/18 13:16 Lactic Acid 1.50 mmol/L (0.7-2.0) 09/20/18 22:57 Calcium 8.7 mg/dL (8.4-10.2) 10/01/18 05:45 Magnesium 2.70 mg/dL (1.7-2.3) H 09/20/18 12:02 Total Bilirubin 0.50 mg/dL (0.1-1.2) 09/21/18 05:00 AST 8 units/L (5-40) 09/21/18 05:00 ALT < 5 units/L (7-56) L 09/21/18 05:00 Alkaline Phosphatase 45 units/L (35-129) 09/21/18 05:00 Ammonia 78.0 umol/L (25-60) H 09/20/18 12:02 Total Creatine Kinase 18 units/L (55-170) L 09/20/18 12:02 Troponin T < 0.010 ng/mL (0.00-0.029) 09/20/18 12:02 Total Protein 6.5 g/dL (6.3-8.2) D 09/21/18 05:00 Albumin 3.1 g/dL (3.9-5) L 09/21/18 05:00 Albumin/Globulin Ratio 0.9 % 09/21/18 05:00 TSH 0.966 mlU/mL (0.270-4.200) 09/20/18 12:02 Free T4 1.35 ng/dL (0.76-1.46) 09/20/18 12:02 Urine Color Yellow (Yellow) 09/30/18 13:52 Urine Turbidity Cloudy (Clear) 09/30/18 13:52 Urine pH 5.0 (5.0-7.0) 09/30/18 13:52 Ur Specific [place] 1.018 (1.003-1.030) 09/30/18 13:52 Urine Protein 100 mg/dl mg/dL (Negative) 09/30/18 13:52 Urine Glucose (UA) 50 mg/dL (Negative) 09/30/18 13:52 Urine Ketones Neg mg/dL (Negative) 09/30/18 13:52 Urine Blood Lg (Negative) 09/30/18 13:52 Urine Nitrite Neg (Negative) 09/30/18 13:52 Urine Bilirubin Neg (Negative) 09/30/18 13:52 Urine Urobilinogen < 2.0 mg/dL (<2.0) 09/30/18 13:52 Ur Leukocyte Esterase Lg (Negative) 09/30/18 13:52 Urine WBC (Auto) > 182.0 /HPF (0.0-6.0) H 09/30/18 13:52 Urine RBC (Auto) > 182.0 /HPF (0.0-6.0) 09/30/18 13:52 U Epithel Cells (Auto) 1.0 /HPF (0-13.0) 09/30/18 13:52 Urine Bacteria (Auto) 2+ /HPF (Negative) 09/20/18 12:46 Urine WBC Clumps 1+ /HPF 09/30/18 13:52 Urine Mucus 1+ /HPF 09/30/18 13:52 Salicylates < 0.3 mg/dL (2.8-20.0) L 09/20/18 12:02 Urine Opiates Screen Presumptive negative 09/20/18 12:46 Urine Methadone Screen Presumptive negative 09/20/18 12:46 Acetaminophen < 5.0 ug/mL (10.0-30.0) L 09/20/18 12:02 Ur Barbiturates Screen Presumptive negative 09/20/18 12:46 Ur Phencyclidine Scrn Presumptive negative 09/20/18 12:46 Ur Amphetamines Screen Presumptive negative 09/20/18 12:46 U Benzodiazepines Scrn Presumptive negative 09/20/18 12:46 Urine Cocaine Screen Presumptive negative 09/20/18 12:46 U Marijuana (THC) Screen Presumptive negative 09/20/18 12:46 Drugs of Abuse Note Disclamer 09/20/18 12:46 Plasma/Serum Alcohol < 0.01 % (0-0.07) 09/20/18 12:02 HIV 1&2 Antibody Rapid Non react (Non React) 09/20/18 12:02 HIV P24 Antigen Non react (Non React) 09/20/18 12:02 Nutrition/Malnutrition Assess - Dietary Evaluation Nutrition/Malnutrition Findings: Nutrition Notes Start: 09/26/18 13:13 Freq: Status: Active Protocol: Document 10/02/18 14:41 RM (Rec: 10/02/18 14:52 RM [id number]) Nutrition Notes Initial or Follow up Reassessment Current Diagnosis Acute Kidney Injury,COPD, Sepsis Other Pertinent Diagnosis ETOH dependence, GI bleed, UTI , encephalopathy Current Diet GI soft Labs/Tests Reviewed Pertinent Medications Reviewed Height 5 ft 8 in Weight 52.3 kg [place] Body Weight (kg) 70.00 BMI 17.5 Subjective/Other Information Pt and absorption and adsorption engineer in room a time of visit. Pt in restraints and confused. Noted lunch at bedside w/25% eaten and a mostly drunk Ensure Enlive. Recorded PO intake 64% X 3 days. Percent of energy/protein needs met: 78%/100% Burn Absent Trauma Absent #1 Nutrition Diagnosis Malnutrition Diagnosis Progress(for reassessment Continues documentation) Is patient on ventilator? No Is Patient Ambulatory and/or Out of Bed Yes REE-([place]-ambulatory/OOB) [ 1745.250 NUTR.MSJOOB] Kcal/Kg value to use for calculation 39 Approximate Energy Requirements Using 0 kcal/Kg Calculation Used for Recommendations Kcal/kg Additional Notes Protein Needs: 63-79g (1.2-1. 5g/kg) Fluid Needs: 1 ml/kcal Nutrition Intervention Change Diet Order: Advance when medically able Add Supplement/Snack (indicate name/kcal Ensure Enlive 1 daily /protein ) Provides kCal: 350 Provides Protein (gm) 20 Goal #1 Continue to meet at least 75% of calorie and protein needs via PO and ONS intakes Goal #2 Wt gain/maintenance Anticipated Discharge Needs: unable to determine at this time Follow-Up By: 10/09/18 Additional Comments Follow for PO and ONS intakes
[2018-10-04] MEDS: PERCOCET 5/325 PO PRN (09:16)
[2018-10-04] MEDS: MIRALAX 3350 PO SCH (10:31)
[2018-10-04] MEDS: HABITROL TD SCH (10:33)
[2018-10-04] MEDS: LIBRIUM PO SCH ×3 (10:34→22:04)
[2018-10-04] MEDS: PREVACID SOLUTAB FEEDTUBE SCH ×2 (10:34→21:59)
[2018-10-04] MEDS: SODIUM CHLORIDE FLUSH SYRINGE 10 ML IV SCH ×2 (10:34→21:59)
--- NOTE | 2018-10-04 15:44 | Progress Note ---
Assessment and Plan Assessment and Plan Patient is a 52 yo man with PMH of ETOH dependence, COPD, and malnutrition who presented to ED with AMS and was found to have encephalopathy, sepsis 2/2 UTI, and acute renal failure upon admission. There were also reports of rectal bleeding per family, GI evaluated. Patient on alcohol withdrawal protocol, restraints, no plan for endoscopy now. * Renal Ultrasound IMPRESSION: 1. Appearance of marked increased thickness of the urinary bladder wall. Balloon catheter within the urinary bladder. 2. Unremarkable appearance of the kidneys. 3. Gallstones within the gallbladder. There is no demonstration of hydronephrosis, renal calculi or renal mass of either kidney. / EtOH dependence with intoxication, now in withdrawal: treat with [place], did poorly with PT, has h/o heavy alcohol drinking, cont Thiamine, Folic acid, multivitamin, CIWA protocol with librium and ativan as needed. /Sepsis due to UTI with suspected obstruction/Urinary retention: Sepsis protocol, cont IV antibiotic therapy, monitor uop q shift, IVF resuscitation therapy, follow Cx, renal u/s reviewed, no hydronephrosis /GI bleed, resolved: GI consulted in ED, cont ppi therapy, stable h/h, supportive care. No plan for endoscopy /Hematuria with Urinary Obstruction/Retention, PVR over 900 on 09/25/18, cadena placed, now gross hematuria: Urology note reviewed, /Acute toxic Encephalopathy, likely from alcohol withdrawal, CT Head no acute finding, cont neuro check, seizure precautions, CIWA protocol, aspiration precautions, treat sepsis. 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 No wernicke's D.c Cadena today If no urinary retention discharge tomorrow Subjective Date of service: 10/04/18 Principal diagnosis: hematochezia Interval history: Alert and oriented Objective - Constitutional Vitals: Vital Signs - 12hr 10/04/18 11:25 Temperature 98.0 F Pulse Rate 71 Respiratory 18 Rate Blood Pressure 95/56 [Right] O2 Sat by Pulse 93 Oximetry General appearance: Present: no acute distress, well-nourished - EENT Eyes: PERRL, EOM intact ENT: hearing intact, clear oral mucosa Ears: bilateral: normal - Neck Neck: supple, normal ROM - Respiratory Respiratory effort: normal Respiratory: bilateral: CTA - Breasts Breasts: normal - Cardiovascular Rhythm: regular Heart Sounds: Present: S1 & S2. Absent: gallop, rub Extremities: pulses intact, No edema, normal color, Full ROM - Gastrointestinal General gastrointestinal: Present: soft, non-tender, non-distended, normal bowel sounds - Genitourinary Male genitourinary: normal - Integumentary Integumentary: clear, warm, dry - Musculoskeletal Musculoskeletal: 1, strength equal bilaterally - Neurologic Neurologic: moves all extremities - Psychiatric Psychiatric: memory intact, appropriate mood/affect, intact judgment & insight - Allied health notes Allied health notes reviewed: nursing, case management - Labs CBC & Chem 7: 10/01/18 05:45 10/01/18 05:45
[2018-10-05 06:40] LABS: Basophils # (Auto) 0.1 K/mm3 (0.0-0.1); Basophils % (Auto) 2.1 % (0.0-1.8); Eosinophils # (Auto) 0.1 K/mm3 (0.0-0.4); Eosinophils % (Auto) 2.9 % (0.0-4.3); Hematocrit 33.7 % (35.5-45.6); Hemoglobin 11.4 gm/dl (11.8-15.2); Lymphocytes # (Auto) 1.7 K/mm3 (1.2-5.4); Lymphocytes % (Auto) 37.1 % (13.4-35.0); Mean Corpuscular HGB Conc 34 % (32-34); Mean Corpuscular Volume 91 fl (84-94); Monocytes # (Auto) 0.3 K/mm3 (0.0-0.8); Monocytes % (Auto) 6.7 % (0.0-7.3); Platelet Count 312 K/mm3 (140-440); Red Cell Distribution Width 14.6 % (13.2-15.2)
[2018-10-05 07:03] LABS: Alanine Aminotransferase 5 units/L (7-56); Albumin 3.1 g/dL (3.9-5); BUN/Creatinine Ratio 16; Blood Urea Nitrogen 14 mg/dL (9-20); Hemolysis Index 5
[2018-10-05] MEDS ORDERED: NACL 0.9% 1000 ML 1,000 ML IV ONE (09:55)
[2018-10-05] MEDS: PREVACID SOLUTAB FEEDTUBE SCH (10:28)
[2018-10-05] MEDS: HABITROL TD SCH (10:29)
[2018-10-05] MEDS: SODIUM CHLORIDE FLUSH SYRINGE 10 ML IV SCH (10:33)
[2018-10-05] MEDS: MIRALAX 3350 PO SCH (10:33)
[2018-10-05] MEDS: LIBRIUM PO SCH (11:30)
[2018-10-05] MEDS ORDERED: FLOMAX PO SCH (12:00)
--- NOTE | 2018-10-05 16:09 | Discharge Summary ---
Providers - Providers Date of Admission: 09/20/18 17:02 Date of discharge: 10/05/18 Attending physician: PATT LANDON 09/20/18 19:14 Consult to Physician [CONS] Routine Comment: Consulting Provider: ROBERT GUTIERREZ Physician Instructions: Reason For Exam: GI bleeding 09/24/18 14:42 Physical Therapy Evaluation and Treat [CONS] Routine Comment: Reason For Exam: placement 09/24/18 16:59 Speech Therapy Evaluation and Treat [CONS] Routine Reason For Exam: aspiration ?? 09/26/18 14:34 Consult to Physician [CONS] Routine Comment: Consulting Provider: DANA GROVE Physician Instructions: I notified Reason For Exam: gross hematuria and urinary retention 09/30/18 09:38 Consult to Physician [CONS] Routine Comment: Consulting Provider: ASHLEY YOON Physician Instructions: Reason For Exam: Altered mental status, Primary care physician: [employer] Hospitalization Condition: Fair Hospital course: Assessment and Plan Patient is a 52 yo man with PMH of ETOH dependence, COPD, and malnutrition who presented to ED with AMS and was found to have encephalopathy, sepsis 2/2 UTI, and acute renal failure upon admission. There were also reports of rectal bleeding per family, GI evaluated. Patient on alcohol withdrawal protocol, restraints, no plan for endoscopy now. * Renal Ultrasound IMPRESSION: 1. Appearance of marked increased thickness of the urinary bladder wall. Balloon catheter within the urinary bladder. 2. Unremarkable appearance of the kidneys. 3. Gallstones within the gallbladder. There is no demonstration of hydronephrosis, renal calculi or renal mass of either kidney. EtOH dependence with intoxication, in wothdrawal --treated and now stable Sepsis due to UTI with suspected obstruction/Urinary retention: Sepsis resolved GI bleed, resolved: GI consulted in ED, cont ppi therapy, stable h/h, supportive care. No plan for endoscopy Hematuria with Urinary Obstruction/Retention, PVR over 900 on 09/25/18, cadena placed, now gross hematuria: Urology note reviewed, Acute toxic Encephalopathy, likely from alcohol withdrawal, CT Head no acute finding, cont neuro check, seizure precautions, CIWA protocol, aspiration precautions, treat sepsis. 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 No dina's [email or web address] Cadena yesterday COntinues to have urinary retention Patient to be discharged on Cadena with leg bag and Flomax to improve urinary retention Also follow with Urology Dr Winkler as out patient. Disposition: - TO HOME OR SELFCARE Core Measure Documentation - Palliative Care Palliative Care/ Comfort Measures: Not Applicable - Core Measures Any of the following diagnoses?: none Exam - Constitutional Vitals: Temp Pulse Resp BP Pulse Ox 97.8 F 81 16 95/65 95 10/05/18 05:02 10/05/18 05:02 10/05/18 05:02 10/05/18 05:02 10/05/18 05:02 General appearance: Present: no acute distress, well-nourished - EENT Eyes: Present: PERRL ENT: hearing intact, clear oral mucosa - Neck Neck: Present: supple, normal ROM - Respiratory Respiratory effort: normal Respiratory: bilateral: CTA - Cardiovascular Heart rate: 78 Rhythm: regular Heart Sounds: Present: S1 & S2. Absent: rub, click - Extremities Extremities: no ischemia, pulses intact, pulses symmetrical, No edema Peripheral Pulses: within normal limits - Abdominal General gastrointestinal: Present: soft, non-tender, non-distended, normal bowel sounds Male genitourinary: Present: normal - Integumentary Integumentary: Present: clear, warm, dry - Musculoskeletal Musculoskeletal: gait normal, strength equal bilaterally - Psychiatric Psychiatric: appropriate mood/affect, intact judgment & insight - Neurologic Neurologic: CNII-XII intact, moves all extremities - Allied Health Allied health notes reviewed: nursing, case management Plan Activity: no restrictions Diet: low fat, low cholesterol, low salt Follow up with: PRIMARY CARE, [Primary Care Provider] - 3-5 Days
[2018-10-05 16:43] VITALS: BP 99/63
== END 2018-10-05 17:00 | disposition home or self-care (01) | DRG 871 ==
LOC: EDBD → ED 10:40 → IMCU 17:02 → 3A 09-25 16:27
PROVIDERS: ADMIT Internal Medicine; ATTEND Internal Medicine
DX: A41.9 Sepsis, unspecified organism (principal); N17.0 Acute kidney failure with tubular necrosis; G92 Toxic encephalopathy; E43 Unspecified severe protein-calorie malnutrition; N39.0 Urinary tract infection, site not specified; K62.5 Hemorrhage of anus and rectum; Z68.1 Body mass index [BMI] 19.9 or less, adult; J44.9 Chronic obstructive pulmonary disease, unspecified; Y90.0 Blood alcohol level of less than 20 mg/100 ml; F10.229 Alcohol dependence with intoxication, unspecified; N40.0 Benign prostatic hyperplasia without lower urinary tract symptoms; D64.9 Anemia, unspecified; R31.9 Hematuria, unspecified; N13.9 Obstructive and reflux uropathy, unspecified
CPT/HCPCS: 36415; 70450; 70551; 71045; 76770; 80048; 80053; 80307; 80320; 81001; 82140; 82550; 82805; 82962; 83735; 84439; 84443; 84484; 85025; 85027; 85610; 85730; 87040; 87086; 87806; 93005; 93010; 95819; 96365; 96367; 96375; G0378; C9113; G0480; J0692; J2060; J3370; J7030; J7050

== ENCOUNTER 2018-10-11 13:52 | Emergency (ER) | payer SELFPAY ==
--- NOTE | 2018-10-11 16:09 | Emergency Department Report ---
Chief Complaint: Medical Clearance Stated Complaint: REMOVAL OF CATH Time Seen by Provider: 10/11/18 16:09 - HPI History of Present Illness: pt presents to the ED for cadena catheter removal pt was admitted for urosepsis present to the doctors office and would not remove catheter without $250 copay MSE screening note: Focused history and physical exam performed. Due to findings the following was ordered: UA ED Disposition for MSE Condition: Stable Referrals: SONI REDMOND MD [Primary Care Provider] - 3-5 Days
[2018-10-11 16:18] VITALS: BP 92/56
--- NOTE | 2018-10-11 18:13 | Emergency Department Report ---
ED General Adult HPI - General Chief complaint: Medical Clearance Stated complaint: REMOVAL OF CATH Time Seen by Provider: 10/11/18 16:09 Source: patient Mode of arrival: Ambulatory Limitations: No Limitations - History of Present Illness Initial comments: This is a 54-year-old male nontoxic, well nourished in appearance, no acute signs of distress presents to the ED with c/o of cadena catheter removal. Patient stated was admitted for urosepsis and was instructed to follow-up with a urologist. Patient stated that he went to a urologist which requested him to pay $250 co-pay per patient stated he does not have it so urologist did not remove the Cadena catheter. Patient denies any urinary symptoms. Denies any penile discharge. Patient denies any testicular pain or swelling. Patient denies any penile ulcers or lesions. Patient denies any nausea, vomiting, chest pain, shortness of breathe, fever, chills, headache, back pain, numbness, ting ling, stiff neck. Patient denies any back pain. Patient denies any urinary symptoms. Patient denies any allergies. Severity scale (0 -10): 0 Improves with: none Worsens with: none Associated Symptoms: denies other symptoms. denies: confusion, chest pain, cough, diaphoresis, fever/chills, headaches, loss of appetite, malaise, nausea/vomiting, rash, seizure, shortness of breath, syncope, weakness - Related Data Previous Rx's Medication Instructions Recorded Last Taken Type Famotidine [Acid Controller] 20 mg PO BID #60 tablet 10/05/18 Unknown Rx Polyethylene Glycol 3350 [Miralax 17 gm PO QDAY #527 powd.pack 10/05/18 Unknown Rx 3350] Tamsulosin [Flomax] 0.4 mg PO QDAY #30 capsule 10/05/18 Unknown Rx chlordiazePOXIDE [Librium] 25 mg PO Q8H #60 capsule 10/05/18 Unknown Rx oxyCODONE /ACETAMINOPHEN [Percocet 1 tab PO Q8H PRN #15 tablet 10/05/18 Unknown Rx 5/325 mg] Ciprofloxacin HCl [Ciprofloxacin 500 mg PO Q12HR #20 tab 10/11/18 Unknown Rx TAB] Allergies Allergy/AdvReac Type Severity Reaction Status Date / Time No Known Allergies Allergy Verified 10/11/18 13:53 ED Review of Systems ROS: Stated complaint: REMOVAL OF CATH Other details as noted in HPI Constitutional: denies: chills, fever Eyes: denies: eye pain, eye discharge, vision change ENT: denies: ear pain, throat pain Respiratory: denies: cough, shortness of breath, wheezing Cardiovascular: denies: chest pain, palpitations Endocrine: no symptoms reported Gastrointestinal: denies: abdominal pain, nausea, diarrhea Genitourinary: denies: urgency, dysuria Musculoskeletal: denies: back pain, joint swelling, arthralgia Skin: denies: rash, lesions Neurological: denies: headache, weakness, paresthesias Psychiatric: denies: anxiety, depression Hematological/Lymphatic: denies: easy bleeding, easy bruising ED Past Medical Hx - Past Medical History Previous Medical History?: Yes Hx Liver Disease: No Hx Arthritis: No Hx COPD: Yes - Surgical History Past Surgical History?: No - Social History Smoking Status: Unknown if ever smoked Substance Use Type: None - Medications Home Medications: Home Medications Medication Instructions Recorded Confirmed Last Taken Type Famotidine [Acid Controller] 20 mg PO BID #60 tablet 10/05/18 Unknown Rx Polyethylene Glycol 3350 [Miralax 17 gm PO QDAY #527 powd.pack 10/05/18 Unknown Rx 3350] Tamsulosin [Flomax] 0.4 mg PO QDAY #30 capsule 10/05/18 Unknown Rx chlordiazePOXIDE [Librium] 25 mg PO Q8H #60 capsule 10/05/18 Unknown Rx oxyCODONE /ACETAMINOPHEN [Percocet 1 tab PO Q8H PRN #15 tablet 10/05/18 Unknown Rx 5/325 mg] Ciprofloxacin HCl [Ciprofloxacin 500 mg PO Q12HR #20 tab 10/11/18 Unknown Rx TAB] ED Physical Exam - General Limitations: No Limitations General appearance: alert, in no apparent distress - Head Head exam: Present: atraumatic, normocephalic - Neck Neck exam: Present: normal inspection, full ROM - exam: Present: normal inspection. Absent: testicular tenderness, urethral discharge, scrotal swelling, vertical testicular lie External exam: Present: normal external exam. Absent: erythema, swelling, lesions, lacerations, ecchymosis, bleeding - Extremities Exam Extremities exam: Present: normal inspection, full ROM, normal capillary refill. Absent: tenderness - Back Exam Back exam: Present: normal inspection, full ROM. Absent: tenderness, CVA tenderness (R), CVA tenderness (L), muscle spasm, paraspinal tenderness, vertebral tenderness, rash noted - Neurological Exam Neurological exam: Present: alert, oriented X3 - Psychiatric Psychiatric exam: Present: normal affect, normal mood - Skin Skin exam: Present: warm, dry, intact, normal color. Absent: rash ED Course Vital Signs 10/11/18 16:15 Temperature 97.4 F L Pulse Rate 78 Respiratory 20 Rate Blood Pressure 92/56 O2 Sat by Pulse 97 Oximetry - Reevaluation(s) Reevaluation #1: 10/11/18 18:10 Patient is speaking in full sentences with no signs of distress noted. ED Medical Decision Making - Medical Decision Making The cadena catheter has been removed and patient tolerated well. I did discuss with Dr. Mccracken about this and was instructed that patient may develop urosepsis is left Cadena catheter prolonged period. Patient was educated and instructed that if patient has any urinary symptoms or has urinary retention to return to emergency room as soon as possible. I will discharge patient with ciprofloxacin empirically. Patient was referred to Follow-up with a primary care/urologist doctor in 3-5 days or if symptoms worsen and continue return to emergency room as soon as possible. At time of discharge, the patient does not seem toxic or ill in appearance. No acute signs of distress noted. Patient agrees to discharge treatment plan of care. No further questions noted by the patient. Critical care attestation.: If time is entered above; I have spent that time in minutes in the direct care of this critically ill patient, excluding procedure time. ED Disposition Clinical Impression: Encounter for Cadena catheter removal Disposition: - TO HOME OR SELFCARE Is pt being admited?: No Does the pt Need Aspirin: No Condition: Stable Additional Instructions: Follow-up with a primary care/urologist doctor in 3-5 days or if symptoms worsen and continue return to emergency room as soon as possible. As instructed and mentioned to you that if you develop any urinary symptoms or urinary retention with extremity syndrome as soon as possible. Prescriptions: Ciprofloxacin HCl [Ciprofloxacin TAB] 500 mg PO Q12HR #20 tab Referrals: SONI REDMOND MD [Primary Care Provider] - 3-5 Days PRIMARY MD SCARLETT [Referring] - 3-5 Days ROCAEL LUA MD [Staff Physician] - 3-5 Days [facility] [Outside] - 3-5 Days [facility] [Outside] - 3-5 Days
== END 2018-10-11 18:25 | disposition home or self-care (01) ==
LOC: EDBD → ED 13:52
DX: Z48.03 Encounter for change or removal of drains (principal); J44.9 Chronic obstructive pulmonary disease, unspecified
CPT/HCPCS: 99282

== ENCOUNTER 2018-10-12 12:59 | Emergency (ER) | payer SELFPAY ==
--- NOTE | 2018-10-12 13:24 | Emergency Department Report ---
ED Male HPI - General Chief complaint: Urogenital-Male Stated complaint: WHATLEY COMPLICATIONS Time Seen by Provider: 10/12/18 13:00 Source: patient Mode of arrival: Ambulatory Limitations: No Limitations - History of Present Illness Initial comments: Patient is a 54-year-old male that presents emergency room with complaints of urinary retention. Patient states he was here yesterday and had his Whatley removed. Patient urinated prior to discharge blood has not urinated since. He can also diagnosed with a UTI but has not started his antibiotics yet Patient has not seen a urologist yet. Patient denies pain except for bladder pain and bladder fullness. Patient states his discomfort is at a 5 out of 10. Patient states the pain is nonradiating. Patient denies fever and chills. Patient has not urinated at all. MD Complaint: other (urinary retention) -: Gradual Location: abdomen Radiation: none Severity: moderate Severity scale (0 -10): 5 Quality: aching Consistency: constant Improves with: rest Worsens with: palpation, movement indwelling catheter urinary retention. denies: discharge, swelling, mass, rash, blood in urine, dysuria, fever, nausea/vomiting, incontinence - Related Data Previous Rx's Medication Instructions Recorded Last Taken Type Famotidine [Acid Controller] 20 mg PO BID #60 tablet 10/05/18 Unknown Rx Polyethylene Glycol 3350 [Miralax 17 gm PO QDAY #527 powd.pack 10/05/18 Unknown Rx 3350] Tamsulosin [Flomax] 0.4 mg PO QDAY #30 capsule 10/05/18 Unknown Rx chlordiazePOXIDE [Librium] 25 mg PO Q8H #60 capsule 10/05/18 Unknown Rx oxyCODONE /ACETAMINOPHEN [Percocet 1 tab PO Q8H PRN #15 tablet 10/05/18 Unknown Rx 5/325 mg] Ciprofloxacin HCl [Ciprofloxacin 500 mg PO Q12HR #20 tab 10/12/18 Unknown Rx TAB] Allergies Allergy/AdvReac Type Severity Reaction Status Date / Time No Known Allergies Allergy Verified 10/11/18 13:53 ED Review of Systems ROS: Stated complaint: WHATLEY COMPLICATIONS Other details as noted in HPI Constitutional: denies: chills, fever Eyes: denies: eye pain, eye discharge, vision change ENT: denies: ear pain, throat pain Respiratory: denies: cough, shortness of breath, wheezing Cardiovascular: denies: chest pain, palpitations Endocrine: no symptoms reported Gastrointestinal: abdominal pain. denies: nausea, diarrhea Genitourinary: denies: urgency, dysuria Musculoskeletal: denies: back pain, joint swelling, arthralgia Skin: denies: rash, lesions Neurological: denies: headache, weakness, paresthesias Psychiatric: denies: anxiety, depression Hematological/Lymphatic: denies: easy bleeding, easy bruising ED Past Medical Hx - Past Medical History Previous Medical History?: Yes Hx Liver Disease: No Hx Arthritis: No Hx COPD: Yes - Surgical History Past Surgical History?: No - Family History Family history: no significant - Social History Smoking Status: Unknown if ever smoked Substance Use Type: None - Medications Home Medications: Home Medications Medication Instructions Recorded Confirmed Last Taken Type Famotidine [Acid Controller] 20 mg PO BID #60 tablet 10/05/18 Unknown Rx Polyethylene Glycol 3350 [Miralax 17 gm PO QDAY #527 powd.pack 10/05/18 Unknown Rx 3350] Tamsulosin [Flomax] 0.4 mg PO QDAY #30 capsule 10/05/18 Unknown Rx chlordiazePOXIDE [Librium] 25 mg PO Q8H #60 capsule 10/05/18 Unknown Rx oxyCODONE /ACETAMINOPHEN [Percocet 1 tab PO Q8H PRN #15 tablet 10/05/18 Unknown Rx 5/325 mg] Ciprofloxacin HCl [Ciprofloxacin 500 mg PO Q12HR #20 tab 10/12/18 Unknown Rx TAB] ED Physical Exam - General Limitations: No Limitations General appearance: alert, in no apparent distress - Head Head exam: Present: atraumatic, normocephalic - Eye Eye exam: Present: normal appearance - ENT ENT exam: Present: mucous membranes moist - Neck Neck exam: Present: normal inspection - Respiratory Respiratory exam: Present: normal lung sounds bilaterally. Absent: respiratory distress - Cardiovascular Cardiovascular Exam: Present: regular rate, normal rhythm. Absent: systolic murmur, diastolic murmur, rubs, gallop - GI/Abdominal GI/Abdominal exam: Present: soft, tenderness (suprapubic tenderness and full bladder noted), normal bowel sounds - Rectal Rectal exam: Present: deferred - Extremities Exam Extremities exam: Present: normal inspection - Back Exam Back exam: Present: normal inspection - Neurological Exam Neurological exam: Present: alert, oriented X3 - Psychiatric Psychiatric exam: Present: normal affect, normal mood - Skin Skin exam: Present: warm, dry, intact, normal color. Absent: rash ED Course Vital Signs 10/12/18 13:59 Temperature 98.1 F Pulse Rate 88 Respiratory 20 Rate Blood Pressure 112/75 [Left] - Reevaluation(s) Reevaluation #1: Whatley placement nurse and symptoms improved. Patient states his abdominal pain has resolved. 10/12/18 13:23 Patient is resting comfortably. 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 Patient will be discharged with a Whatley in place. She states that all pain has resolved. Patient they will discharge. Patient given discharge instructions. Patient voiced understanding of discharge instructions. 10/12/18 14:21 ED Medical Decision Making - Medical Decision Making Patient is a 54-year-old male that presents to emergency with complaints of urinary retention and not urinating for multiple hours. Patient complained of lower abdominal pressure. Patient pressure and symptoms were relieved with a Whaltey. Patient discharged with Hwatley home. Patient instructed to follow up with urologist. Patient also found to have a UTI. Patient also did not start his antibiotics that were given at his previous visit. Patient instructed to start antibiotics. - Differential Diagnosis urinary retention. Prostatitis. UTI. Critical care attestation.: If time is entered above; I have spent that time in minutes in the direct care of this critically ill patient, excluding procedure time. ED Disposition Clinical Impression: Urinary retention UTI (urinary tract infection) Qualifiers: Urinary tract infection type: acute cystitis Hematuria presence: with hematuria Qualified Code(s): N30.01 - Acute cystitis with hematuria Disposition: TO HOME OR SELFCARE Is pt being admited?: No Does the pt Need Aspirin: No Condition: Stable Instructions: Urinary Retention in Men (ED), Urinary Tract Infection in Men (ED) Additional Instructions: Patient to follow up with primary care in 2-3 days. Patient to follow up with urologist as soon as possible. Patient to increase water. Patient to continue Whatley catheter until discharge continued by urologist. Patient take Tylenol or ibuprofen when necessary for pain. The patient increase water. Patient didn't take antibiotics. Patient to start Cipro that was prescribed previously with his last visit here. Prescriptions: Ciprofloxacin HCl [Ciprofloxacin TAB] 500 mg PO Q12HR #20 tab Referrals: DANA GROVE MD [Staff Physician] - 2-3 Days [place] SONI SANCHEZ MD [Primary Care Provider] - 2-3 Days Time of Disposition: 14:25
[2018-10-12 13:44] LABS: Bilirubin,Urine NEG (Negative); Blood,Urine NEG (Negative); Color,Urine Yellow (Yellow); Urobilinogen,Urine < 2.0 mg/dL (<2.0)
[2018-10-12 13:46] LABS: Protein,Urine >500 mg/dL (Negative)
[2018-10-12 15:40] VITALS: BP 112/72
== END 2018-10-12 14:48 | disposition home or self-care (01) ==
LOC: ED 12:59
DX: N39.0 Urinary tract infection, site not specified (principal); R33.9 Retention of urine, unspecified; J44.9 Chronic obstructive pulmonary disease, unspecified
CPT/HCPCS: 51702; 81001

== ENCOUNTER 2018-11-06 12:20 | Emergency (ER) | payer SELFPAY ==
[2018-11-06 12:36] VITALS: BP 147/84
--- NOTE | 2018-11-06 12:36 | Emergency Department Report ---
Chief Complaint: Urogenital-Male Stated Complaint: CATH REMOVAL Time Seen by Provider: 11/06/18 12:31 - HPI History of Present Illness: This is a 54 y.o. male that presents to the ER to have Matthew catheter removed. Patient went to the urologist today and sent here because he didn't have a I.D. Cather removed on 10/11/2018 and replaced on 10/12/18 due to urinary retention. Patient seen here 10/12/18 for Matthew completions. - Exam Vital Signs: Vital Signs 11/06/18 12:34 Temperature 98.1 F Pulse Rate 97 H Respiratory 16 Rate Blood Pressure 147/84 O2 Sat by Pulse 98 Oximetry MSE screening note: Focused history and physical exam performed. Due to findings the following was ordered: ACC or Main for further evaluation. ED Disposition for MSE Condition: Stable
--- NOTE | 2018-11-06 15:19 | Emergency Department Report ---
ED Recheck HPI - General Chief Complaint: Urogenital-Male Stated Complaint: CATH REMOVAL Time Seen by Provider: 11/06/18 12:31 Source: patient Mode of arrival: Ambulatory Limitations: No Limitations - History of Present Illness Initial Comments: Patient is a 54-year-old male who comes to the ER to have his Cadena removed. Patient has been in and out of the ER with placement of a Cadena after an admission for urinary retention. That he had it removed. He came back the next day with urinary retention and was sent home with the Cadena. He attempted to get an appointment with urology but they will not see him because he has no pain or source. Patient states that he has taken the antibiotics that he was given. His urine is draining to bedside bag hanging on his routine pocket. Urine is dilute and without blood. VSS no fever, no cva tenderness, no complaints of abdominal pain Symptoms Since Prior Visit: no new symptoms - Related Data Previous Rx's Medication Instructions Recorded Last Taken Type Tamsulosin HCl [Flomax] 0.4 mg PO DAILY #30 cap.er.24h 11/06/18 Unknown Rx Nitrofurantoin Monohyd/M-Cryst 100 mg PO BID #13 capsule 11/07/18 Unknown Rx [Macrobid 100 mg Capsule] Allergies Allergy/AdvReac Type Severity Reaction Status Date / Time No Known Allergies Allergy Verified 10/11/18 13:53 ED Review of Systems ROS: Stated complaint: CATH REMOVAL Other details as noted in HPI Comment: All other systems reviewed and negative ED Past Medical Hx - Past Medical History Hx Liver Disease: No Hx Arthritis: No Hx COPD: Yes Additional medical history: urinary retention/ UTI/ etoh abuse/MAYA - Surgical History Past Surgical History?: No - Family History Family history: no significant - Social History Smoking Status: Current Every Day Smoker Substance Use Type: None - Medications Home Medications: Home Medications Medication Instructions Recorded Confirmed Last Taken Type Tamsulosin HCl [Flomax] 0.4 mg PO DAILY #30 cap.er.24h 11/06/18 Unknown Rx Nitrofurantoin Monohyd/M-Cryst 100 mg PO BID #13 capsule 11/07/18 Unknown Rx [Macrobid 100 mg Capsule] ED Physical Exam - General Limitations: No Limitations General appearance: alert - Head Head exam: Present: atraumatic, normocephalic - Eye Eye exam: Present: normal appearance, PERRL Pupils: Present: normal accommodation - ENT ENT exam: Present: mucous membranes moist - Neck Neck exam: Present: normal inspection - Respiratory Respiratory exam: Present: normal lung sounds bilaterally - Cardiovascular Cardiovascular Exam: Present: regular rate - GI/Abdominal GI/Abdominal exam: Present: soft, normal bowel sounds - Rectal Rectal exam: Present: deferred - Extremities Exam Extremities exam: Present: normal inspection, full ROM - Back Exam Back exam: Present: normal inspection, full ROM. Absent: CVA tenderness (R), CVA tenderness (L) - Neurological Exam Neurological exam: Present: alert, oriented X3, CN II-XII intact, normal gait - Psychiatric Psychiatric exam: Present: normal affect, normal mood - Skin Skin exam: Present: warm, dry ED Course Vital Signs 11/06/18 12:34 Temperature 98.1 F Pulse Rate 97 H Respiratory 16 Rate Blood Pressure 147/84 O2 Sat by Pulse 98 Oximetry ED Recheck MDM - Core Measures Measure Exclusions: not indicated - Medical Decision Making pt has been counseled on that if we take cadena out and he can urinate he will have to come back to get cadena replaced. he states I understand but I can not get follow up with urology. urine is clear, dilute no fever no abd pain no cva tenderness pt states he took his antibiotic pt well aware of implications of removal of the catheter will dc cath urine sent for culture in the event pt continues to have problem we will have source and can chose appropriate antibiotic pt given follow up with Dr Winkler who has seen the pt here in the past and should see him in follow up. Vital Signs 11/06/18 12:34 Temperature 98.1 F Pulse Rate 97 H Respiratory 16 Rate Blood Pressure 147/84 O2 Sat by Pulse 98 Oximetry dc home with flomax Critical care attestation.: If time is entered above; I have spent that time in minutes in the direct care of this critically ill patient, excluding procedure time. ED Disposition Clinical Impression: Complication of Cadena catheter, Encounter for Cadena catheter removal Disposition: DC-01 TO HOME OR SELFCARE Is pt being admited?: No Does the pt Need Aspirin: No Condition: Stable Additional Instructions: MED ORDERED TODAY DRINK A LOT OF WATER AVOID ALCOHOL OR DRUGS FOLLOW UP WITH DR WINKLER TELL HIM HE SAW YOU IN HOSPITAL AND HAS BEEN BODY STYLIST WHEN YOU HAVE BEEN SEEN IN ER HE CAN ACCESS AND READ OUR NOTES Prescriptions: Tamsulosin HCl [Flomax] 0.4 mg PO DAILY #30 cap.er.24h Referrals: ROCAEL WINKLER MD [Staff Physician] - 3-5 Days Time of Disposition: 15:20
[2018-11-06 16:47] LABS: Amorphous Crystals,Urine Few; Bilirubin,Urine NEG (Negative); Blood,Urine NEG (Negative); Color,Urine Yellow (Yellow); Protein,Urine <15 mg/dL mg/dL (Negative); Urobilinogen,Urine < 2.0 mg/dL (<2.0)
== END 2018-11-06 16:01 | disposition home or self-care (01) ==
LOC: ED 12:20
DX: T83.038A Leakage of other urinary catheter, initial encounter (principal); J44.9 Chronic obstructive pulmonary disease, unspecified; F17.200 Nicotine dependence, unspecified, uncomplicated; R33.9 Retention of urine, unspecified; X58.XXXA Exposure to other specified factors, initial encounter
CPT/HCPCS: 81001; 87076; 87086; 87186; 99283

== ENCOUNTER 2018-11-06 23:12 | Emergency (ER) | payer OTHER ==
--- NOTE | 2018-11-07 03:29 | Emergency Department Report ---
ED Male HPI - General Chief complaint: Urogenital-Male Stated complaint: CATH REMOVAL ISSUE Time Seen by Provider: 11/07/18 01:55 Source: patient Mode of arrival: Ambulatory Limitations: No Limitations - History of Present Illness Initial comments: 54-year-old male with a past medical history of recurrent urinary retention, COPD, prostate enlargement, and EtOH abuse presents to the hospital with complaints of inability to urinate since It was removed 3 hours ago. As per medical record review patient was here in September with a similar presentation. Patient has yet to follow up with urology and identification issues. Patient came in yesterday requesting Cadena removal and now be presents once again to the hospital with obstruction symptoms. Patient was prescribed a month's supply of Flomax on his visit yesterday. UA shows signs of leukocytosis, increased WBC count and WBCs. Patient states he was not prescribed antibiotics and finished his last course from last month. - Related Data Previous Rx's Medication Instructions Recorded Last Taken Type Tamsulosin HCl [Flomax] 0.4 mg PO DAILY #30 cap.er.24h 11/06/18 Unknown Rx Nitrofurantoin Monohyd/M-Cryst 100 mg PO BID #13 capsule 11/07/18 Unknown Rx [Macrobid 100 mg Capsule] Allergies Allergy/AdvReac Type Severity Reaction Status Date / Time No Known Allergies Allergy Verified 10/11/18 13:53 ED Review of Systems ROS: Stated complaint: CATH REMOVAL ISSUE Other details as noted in HPI Comment: All other systems reviewed and negative ED Past Medical Hx - Past Medical History Previous Medical History?: Yes Hx Liver Disease: No Hx Arthritis: No Hx COPD: Yes Additional medical history: urinary retention/ UTI/ etoh abuse/MAYA - Surgical History Past Surgical History?: No - Social History Smoking Status: Current Every Day Smoker - Medications Home Medications: Home Medications Medication Instructions Recorded Confirmed Last Taken Type Tamsulosin HCl [Flomax] 0.4 mg PO DAILY #30 cap.er.24h 11/06/18 Unknown Rx Nitrofurantoin Monohyd/M-Cryst 100 mg PO BID #13 capsule 11/07/18 Unknown Rx [Macrobid 100 mg Capsule] ED Physical Exam - General Limitations: No Limitations - Other Other exam information: General: No limitations, patient is alert in no acute distress Head exam: Atraumatic, normocephalic Eyes exam: Normal appearance ENT: Moist mucous membrane, normal oropharynx Neck exam: Normal inspection, full range of motion, no meningismus nontender Respiratory exam: Clear to auscultation bilateral, no wheezes, rales, crackles Cardiovascular: Normal rate and rhythm, normal heart sounds Abdomen: Soft, nondistended, mild suprapubic tenderness, with normal bowel sounds, no rebound, or guarding Extremity: Full range of motion normal inspection no deformity Back: Normal Inspection, full range of motion, no tenderness Neurologic: Alert, oriented x3, cranial nerves intact, no motor or sensory deficit Psychiatric: normal affect, normal mood Skin: Warm, dry, intact ED Course Vital Signs 11/06/18 11/07/18 23:34 01:54 Temperature 97.4 F L 97.5 F L Pulse Rate 112 H 86 Respiratory 18 16 Rate Blood Pressure 141/85 Blood Pressure 131/89 [Left] O2 Sat by Pulse 93 97 Oximetry ED Medical Decision Making - Medical Decision Making cadena placed in ed. RN reports initial output of 120ml. Prior to d/c total output 900 ml marobid po provided. - Differential Diagnosis bph, prostate ca, uti Critical Care Time: No Critical care attestation.: If time is entered above; I have spent that time in minutes in the direct care of this critically ill patient, excluding procedure time. ED Disposition Clinical Impression: Urine retention, UTI (urinary tract infection) Disposition: OP ADMIT IP TO THIS HOSP Is pt being admited?: Yes Condition: Stable Instructions: Cadena Catheter Placement and Care (ED), Urinary Leg Bag (GEN), Urinary Tract Infection in Men (ED), Urinary Retention in Men (ED) Additional Instructions: Take the medication as prescribed. Follow up with your doctor or the clinic/doctor provided. Return if symptoms worsen as indicated by your discharge instructions Prescriptions: Nitrofurantoin Monohyd/M-Cryst [Macrobid 100 mg Capsule] 100 mg PO BID #13 capsule Referrals: DANA GROVE MD [Staff Physician] - 3-5 Days Time of Disposition: 03:36
[2018-11-07] MEDS ORDERED: MACROBID PO ONE (03:31)
[2018-11-07 04:02] VITALS: BP 128/81
== END 2018-11-07 04:59 | disposition admitted as inpatient to this hospital (09) ==
LOC: ED 23:12
DX: N39.0 Urinary tract infection, site not specified (principal); R33.9 Retention of urine, unspecified
CPT/HCPCS: 51702; 99282

== ENCOUNTER 2019-08-16 18:53 | Emergency (ER) | payer SELFPAY ==
--- NOTE | 2019-08-16 22:12 | Emergency Department Report ---
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 The patient presents to the ER with a primary complaint of obstructed Matthew catheter tubing, present 1 day. He also endorses suprapubic pain. He last produced urine this morning. No complaint of headache, neck pain, chest pain, denies constipation and testicular pain, denies irritative urinary symptoms. Also endorses straining during defecation, straining when attempting to urinate, protrusion of external hemorrhoids, and suspicion for clear mucoid discharge with brown stool from rectum. He denies receptive penetrative anal intercourse, denies insertion of foreign objects. Urinary symptoms constant. Clear nasal discharge symptoms intermittent, now relieved at this time, worsened with defecation -: Gradual Severity scale (0 -10): 8 Consistency: intermittent Improves with: rest Worsens with: other - Related Data Previous Rx's Medication Instructions Recorded Last Taken Type Tamsulosin HCl [Flomax] 0.4 mg PO DAILY #30 cap.er.24h 11/06/18 Unknown Rx Nitrofurantoin Monohyd/M-Cryst 100 mg PO BID #13 capsule 11/07/18 Unknown Rx [Macrobid 100 mg Capsule] Nitrofurantoin Stanton/M-Cryst 100 mg PO Q12HR #14 capsule 04/24/19 Unknown Rx [Macrobid CAP] Tamsulosin [Flomax] 0.4 mg PO QDAY #30 cap 08/17/19 Unknown Rx cephALEXin [Keflex] 500 mg PO Q6HR #28 capsule 08/17/19 Unknown Rx Allergies Allergy/AdvReac Type Severity Reaction Status Date / Time No Known Allergies Allergy Verified 10/11/18 13:53 ED Review of Systems ROS: Stated complaint: CATH CLOGGED/PAIN Other details as noted in HPI Constitutional: denies: fever Eyes: denies: eye discharge ENT: denies: congestion Respiratory: denies: wheezing Cardiovascular: denies: syncope Gastrointestinal: as per HPI. denies: vomiting Genitourinary: other (please see history of present illness). denies: dysuria, testicular pain, testicular mass Neurological: weakness Psychiatric: as per HPI Hematological/Lymphatic: denies: easy bleeding ED Past Medical Hx - Past Medical History Hx Liver Disease: No Hx Arthritis: No Hx COPD: Yes Additional medical history: urinary retention/ UTI/ etoh abuse/MAYA - Surgical History Hx Appendectomy: Yes Additional Surgical History: Toothe pulled - Social History Smoking Status: Current Every Day Smoker Substance Use Type: None - Medications Home Medications: Home Medications Medication Instructions Recorded Confirmed Last Taken Type Tamsulosin HCl [Flomax] 0.4 mg PO DAILY #30 cap.er.24h 11/06/18 Unknown Rx Nitrofurantoin Monohyd/M-Cryst 100 mg PO BID #13 capsule 11/07/18 Unknown Rx [Macrobid 100 mg Capsule] Nitrofurantoin Stanton/M-Cryst 100 mg PO Q12HR #14 capsule 04/24/19 Unknown Rx [Macrobid CAP] Tamsulosin [Flomax] 0.4 mg PO QDAY #30 cap 08/17/19 Unknown Rx cephALEXin [Keflex] 500 mg PO Q6HR #28 capsule 08/17/19 Unknown Rx ED Physical Exam - General Limitations: No Limitations General appearance: alert, in no apparent distress - Head Head exam: Present: atraumatic, normocephalic - Eye Eye exam: Present: normal appearance, EOMI - ENT ENT exam: Present: normal exam, normal orophraynx, mucous membranes moist, normal external ear exam - Neck Neck exam: Present: normal inspection, full ROM. Absent: tenderness, meningismus - Respiratory Respiratory exam: Present: normal lung sounds bilaterally. Absent: respiratory distress - Cardiovascular Cardiovascular Exam: Present: regular rate, normal rhythm, normal heart sounds. Absent: bradycardia, tachycardia, irregular rhythm, systolic murmur, diastolic murmur, rubs, gallop - GI/Abdominal GI/Abdominal exam: Present: soft. Absent: distended, tenderness, guarding, rebound, rigid, pulsatile mass - Rectal Rectal exam: Present: normal inspection, hemorrhoids, other (no active bleeding or mucoid discharge is noted. Chaperoned by nurse Divya Sorto) - exam: Present: normal inspection, other (there is normal testicular lie. There is normal cremasteric reflex. There is no testicular tenderness. There is no testicular swelling). Absent: testicular tenderness External exam: Present: normal external exam, other (Matthew catheter in place. Chaperoned by nurse Eyal Sorto) - Extremities Exam Extremities exam: Present: normal inspection, full ROM, other (2+ pulses noted in the bilateral upper and lower extremities. The pelvis is stable. There is no long bony tenderness. The muscular compartments are soft. There is no redness, pus, streaking or erythema.). Absent: pedal edema, calf tenderness - Back Exam Back exam: Present: normal inspection. Absent: tenderness, CVA tenderness (R), CVA tenderness (L), paraspinal tenderness, vertebral tenderness - Neurological Exam Neurological exam: Present: alert, normal gait, other (there is no facial droop. The tongue is midline. Extraocular movements are intact bilaterally. Speaking in full sentences. Hearing is grossly intact. 5 out of 5 strength bilateral upper and lower extremities. Sensation is intact to light touch bilateral upper and lower extremities.). Absent: motor sensory deficit - Psychiatric Psychiatric exam: Present: anxious - Skin Skin exam: Present: warm, dry, intact, normal color. Absent: rash ED Course Vital Signs 08/16/19 08/16/19 19:30 22:31 Temperature 97.6 F 98.2 F Pulse Rate 77 74 Respiratory 18 21 Rate Blood Pressure 164/81 164/94 [Left] O2 Sat by Pulse 98 100 Oximetry - Reevaluation(s) Reevaluation #1: 08/16/19 22:31 Differential diagnosis, including not limited to: Matthew catheter malfunction, external hemorrhoids, history of mucoid discharge, renal insufficiency, electrolyte derangement Assessment and plan: 54-year-old gentleman with 2 complaints Complaint #1, Matthew catheter dysfunction and suprapubic discomfort. Plan is to replace Matthew catheter, and obtain a catheterized urine sample for urinalysis and culture. We will check basic metabolic panel to assess for renal insufficiency, and electrolyte derangement. The patient is clinically sober at this time and walks with a steady gait. On numerous prior evaluations he has been referred to [facility], it is not apparent that the patient has followed up. Complaint #2, hemorrhoids with clear discharge. Hemorrhoids do not appear to be superinfected. There is no bleeding noted on my rectal examination. There is no mucoid discharge at this time noted. This does not represent an emergency medical condition. He can follow-up with her outpatient primary care doctor or pricing intern. Sits baths as needed, diet and lifestyle modifications. Reevaluation #2: 08/17/19 01:30 The patient is reassessed. He is in no acute distress at this time. He feels much improved. 450 mL of urine were retained after placement of a Matthew catheter. Old culture results are reviewed and appreciated. Previously has demonstrated sensitivity to penicillin, therefore, we will discharge with Keflex. He is counseled to discontinue beer consumption. He is again counseled to follow-up with outpatient urology. He can also follow up with outpatient gastroenterology for his external hemorrhoids. ED Medical Decision Making - Lab Data Result diagrams: 08/16/19 22:36 08/16/19 22:36 Vital Signs 08/16/19 08/16/19 19:30 22:31 Temperature 97.6 F 98.2 F Pulse Rate 77 74 Respiratory 18 21 Rate Blood Pressure 164/81 164/94 [Left] O2 Sat by Pulse 98 100 Oximetry Lab Results 08/16/19 08/16/19 08/16/19 Range/Units 22:29 22:36 22:36 WBC 9.5 (4.5-11.0) K/mm3 RBC 4.67 (3.65-5.03) M/mm3 Hgb 14.5 (11.8-15.2) gm/dl Hct 42.0 (35.5-45.6) % MCV 90 (84-94) fl MCH 31 (28-32) pg MCHC 35 H (32-34) % RDW 13.6 (13.2-15.2) % Plt Count 227 (140-440) K/mm3 Sodium 129 L (137-145) mmol/L Potassium 4.5 (3.6-5.0) mmol/L Chloride 89.6 L (98-107) mmol/L Carbon Dioxide 22 (22-30) mmol/L Anion Gap 22 mmol/L BUN 9 (9-20) mg/dL Creatinine 0.9 (0.8-1.5) mg/dL Estimated GFR > 60 ml/min BUN/Creatinine Ratio 10 % Glucose 114 H (75-100) mg/dL Calcium 9.7 (8.4-10.2) mg/dL Magnesium 1.70 (1.7-2.3) mg/dL Total Bilirubin 0.40 (0.1-1.2) mg/dL AST 15 (5-40) units/L ALT 8 (7-56) units/L Alkaline Phosphatase 81 (35-129) units/L Total Creatine Kinase 56 (55-170) units/L Total Protein 7.9 (6.3-8.2) g/dL Albumin 4.1 (3.9-5) g/dL Albumin/Globulin Ratio 1.1 % Urine Color Yellow (Yellow) Urine Turbidity Cloudy (Clear) Urine pH 8.0 H (5.0-7.0) Ur Specific Pierre 1.011 (1.003-1.030) Urine Protein 100 mg/dl (Negative) mg/dL Urine Glucose (UA) Neg (Negative) mg/dL Urine Ketones Neg (Negative) mg/dL Urine Blood Lg (Negative) Urine Nitrite Pos (Negative) Urine Bilirubin Neg (Negative) Urine Urobilinogen < 2.0 (<2.0) mg/dL Ur Leukocyte Esterase Lg (Negative) Urine WBC (Auto) > 182.0 H (0.0-6.0) /HPF Urine RBC (Auto) > 182.0 (0.0-6.0) /HPF Urine Bacteria (Auto) 2+ (Negative) /HPF Urine Mucus Few /HPF Urine Yeast (Budding) 3+ /HPF Critical care attestation.: If time is entered above; I have spent that time in minutes in the direct care of this critically ill patient, excluding procedure time. ED Disposition Clinical Impression: External hemorrhoid Matthew catheter problem Qualifiers: Encounter type: subsequent encounter Qualified Code(s): T83.9XXD - Unspecified complication of genitourinary prosthetic device, implant and graft, subsequent encounter Disposition: DC01 TO HOME OR SELFCARE Is pt being admited?: No Does the pt Need Aspirin: No Condition: Stable Instructions: Sitz Bath (GEN), Hemorrhoids (ED), Matthew Catheter Placement and Care (ED) Additional Instructions: Recommend the patient minimize consumption of beer and alcohol. Recommend patient take multivitamin [id number] daily. Cultures were sent today, results will be available in the next 3-5 days. Please have a primary care doctor or urology specialist contact the medical records department to obtain culture results. Patient should drink 4-6 cups of water per day, and eat plenty of fiber, vegetables and lean protein. Patient may use sitz baths as often as as needed for external hemorrhoids. Recommend patient follow-up with an outpatient urology specialist for management of indwelling Matthew catheter. Patient should follow-up within the next 7-10 days. Recommend patient follow up with an outpatient pricing intern for hemorrhage within the next 4-6 weeks. Please return to the emergency room right away with projectile vomiting, change in mental status, confusion, inability to tolerate liquid feeds, new, worsened or different symptoms not present on the initial emergency room evaluation. Referrals: ROCAEL LUA MD [Staff Physician] - 3-5 Days [facility] [Provider Group] - 3-5 Days [facility] [Provider Group] - 3-5 Days [facility] [Provider Group] - 3-5 Days
[2019-08-16 22:50] LABS: Bacteria,Urine 2+ /HPF (Negative); Bilirubin,Urine NEG (Negative); Blood,Urine LG (Negative); Color,Urine Yellow (Yellow); Mucus,Urine FEW /HPF; Urobilinogen,Urine < 2.0 mg/dL (<2.0)
[2019-08-16 23:18] LABS: RBC,Urine > 182.0 /HPF (0.0-6.0); WBC,Urine > 182.0 /HPF (0.0-6.0)
[2019-08-17 00:11] LABS: Hemoglobin 14.5 gm/dl (11.8-15.2); Mean Corpuscular HGB Conc 35 % (32-34); Mean Corpuscular Volume 90 fl (84-94); Platelet Count 227 K/mm3 (140-440); Red Blood Count 4.67 M/mm3 (3.65-5.03); Red Cell Distribution Width 13.6 % (13.2-15.2)
[2019-08-17 00:22] LABS: Alanine Aminotransferase 8 units/L (7-56); Albumin 4.1 g/dL (3.9-5); BUN/Creatinine Ratio 10; Blood Urea Nitrogen 9 mg/dL (9-20); Calcium 9.7 mg/dL (8.4-10.2); Hemolysis Index 17
[2019-08-17] MEDS ORDERED: SODIUM CHLORIDE 0.9% 1000 ML 2,000 ML IV ONE (00:43)
[2019-08-17] MEDS ORDERED: cephALEXin 500 MG CAP PO ONE (01:02)
[2019-08-17] MEDS ORDERED: FLUCONAZOLE 100 MG TAB PO ONE (01:02)
[2019-08-17 03:04] VITALS: BP 120/81
== END 2019-08-17 03:06 | disposition home or self-care (01) ==
LOC: ED 18:53
DX: T83.098A Other mechanical complication of other urinary catheter, initial encounter (principal); K64.4 Residual hemorrhoidal skin tags; J44.9 Chronic obstructive pulmonary disease, unspecified; F17.200 Nicotine dependence, unspecified, uncomplicated; Z90.89 Acquired absence of other organs; Z79.899 Other long term (current) drug therapy; Y92.89 Other specified places as the place of occurrence of the external cause; Y84.6 Urinary catheterization as the cause of abnormal reaction of the patient, or of later complication, without mention of misadventure at the time of the procedure
CPT/HCPCS: 36415; 51702; 80053; 81001; 82550; 83735; 85027; 87086; 96360; 96361; 99283; J7030

== ENCOUNTER 2020-07-19 21:37 | Emergency (ER) | payer SELFPAY ==
--- NOTE | 2020-07-20 09:04 | Emergency Department Report ---
ED General Adult HPI - General Chief complaint: Urogenital-Male Stated complaint: WHATLEY CATHETER CHANGE Time Seen by Provider: 07/20/20 08:36 Source: patient Mode of arrival: Ambulatory Limitations: No Limitations - History of Present Illness Initial comments: This is a 54-year old man who requests Whatley change for clogged catheter. Apparently he has been coming to the emergency department for the same for quite some time. He denies ever going to a urologist. He denies fever or chills. He denies any other acute problems. He complains of suprapubic discomfort associated with the poorly draining Whatley. He states that urine is partially flowing. As per August 06, 2019 history: The patient is a 54-year-old gentleman with a history of alcohol dependence, COPD, depression, urinary retention, chronic indwelling Whatley catheter, and external hemorrhoids. The patient presents to the ER with a primary complaint of obstructed Whatley catheter tubing, present 1 day. He also endorses suprapubic pain. He last produced urine this morning. No complaint of headache, neck pain, chest pain, denies constipation and testicular pain, denies irritative urinary symptoms. -: Gradual, year(s) Consistency: constant Associated Symptoms: denies other symptoms - Related Data Previous Rx's Medication Instructions Recorded Last Taken Type Tamsulosin HCl [Flomax] 0.4 mg PO DAILY #30 cap.er.24h 11/06/18 Unknown Rx Nitrofurantoin Monohyd/M-Cryst 100 mg PO BID #13 capsule 11/07/18 Unknown Rx [Macrobid 100 mg Capsule] Nitrofurantoin [place]/M-Cryst 100 mg PO Q12HR #14 capsule 04/24/19 Unknown Rx [Macrobid CAP] Tamsulosin [Flomax] 0.4 mg PO QDAY #30 cap 08/17/19 Unknown Rx cephALEXin [Keflex] 500 mg PO Q6HR #28 capsule 08/17/19 Unknown Rx Allergies Allergy/AdvReac Type Severity Reaction Status Date / Time No Known Allergies Allergy Verified 10/11/18 13:53 ED Review of Systems ROS: Stated complaint: WHATLEY CATHETER CHANGE Other details as noted in HPI Constitutional: denies: chills, fever Eyes: denies: eye pain, eye discharge, vision change ENT: denies: ear pain, throat pain Respiratory: denies: cough, shortness of breath, wheezing Cardiovascular: denies: chest pain, palpitations Endocrine: no symptoms reported Gastrointestinal: other (States chronic problems with hemorrhoids). denies: abdominal pain, nausea, diarrhea Genitourinary: as per HPI Musculoskeletal: denies: back pain, joint swelling, arthralgia Skin: denies: rash, lesions Neurological: denies: headache, weakness, paresthesias Psychiatric: denies: anxiety, depression Hematological/Lymphatic: denies: easy bleeding, easy bruising ED Past Medical Hx - Past Medical History Previous Medical History?: Yes Hx Liver Disease: No Hx Arthritis: No Hx COPD: Yes Additional medical history: urinary retention/ UTI/ etoh abuse/MAYA - Surgical History Past Surgical History?: Yes Hx Appendectomy: Yes Additional Surgical History: Toothe pulled - Social History Smoking Status: Never Smoker - Medications Home Medications: Home Medications Medication Instructions Recorded Confirmed Last Taken Type Tamsulosin HCl [Flomax] 0.4 mg PO DAILY #30 cap.er.24h 11/06/18 Unknown Rx Nitrofurantoin Monohyd/M-Cryst 100 mg PO BID #13 capsule 11/07/18 Unknown Rx [Macrobid 100 mg Capsule] Nitrofurantoin [place]/M-Cryst 100 mg PO Q12HR #14 capsule 04/24/19 Unknown Rx [Macrobid CAP] Tamsulosin [Flomax] 0.4 mg PO QDAY #30 cap 08/17/19 Unknown Rx cephALEXin [Keflex] 500 mg PO Q6HR #28 capsule 08/17/19 Unknown Rx ED Physical Exam - General Limitations: No Limitations General appearance: alert, in no apparent distress - Head Head exam: Present: atraumatic, normocephalic - Eye Eye exam: Present: normal appearance. Absent: scleral icterus - ENT ENT exam: Present: mucous membranes moist - Neck Neck exam: Present: normal inspection - Respiratory Respiratory exam: Present: normal lung sounds bilaterally. Absent: respiratory distress - Cardiovascular Cardiovascular Exam: Present: regular rate, normal rhythm. Absent: systolic murmur, diastolic murmur, rubs, gallop - GI/Abdominal GI/Abdominal exam: Present: soft, normal bowel sounds, other (Bladder does appear to be distended). Absent: tenderness, guarding, rebound, rigid - Rectal Rectal exam: Present: deferred - Extremities Exam Extremities exam: Present: normal inspection - Back Exam Back exam: Present: normal inspection - Neurological Exam Neurological exam: Present: alert, oriented X3, CN II-XII intact, normal gait (Fully ambulatory about the emergency department). Absent: motor sensory deficit - Psychiatric Psychiatric exam: Present: normal affect, normal mood - Skin Skin exam: Present: warm, dry, intact, normal color. Absent: rash ED Course - Reevaluation(s) Reevaluation #1: Obviously this patient's lack of follow-up with the urologist is an extremely unfortunate issue. He is referred to [facility] as well as direct [place] [facility]. His urine will be cultured. 07/20/20 09:03 Critical care attestation.: If time is entered above; I have spent that time in minutes in the direct care of this critically ill patient, excluding procedure time. ED Disposition Clinical Impression: Obstructed Whatley catheter Qualifiers: Encounter type: initial encounter Qualified Code(s): T83.091A - Other mechanical complication of indwelling urethral catheter, initial encounter Disposition: TO HOME OR SELFCARE Is pt being admited?: No Does the pt Need Aspirin: No Condition: Stable Instructions: Indwelling Urinary Catheter Care, Adult, [id number], Indwelling Urinary Catheter Insertion, Care After Additional Instructions: It makes no sense whatsoever just to be coming to the emergency department for this problem. You need continuity of care and appropriate treatment in the outpatient setting. See referrals. Referrals: [facility]IMARY [facility] [Primary Care Provider] - 3-5 Days [facility] [Provider Group] - 3-5 Days [facility] [Provider Group] - 3-5 Days Time of Disposition: 09:04
[2020-07-20 10:09] VITALS: BP 134/83
== END 2020-07-20 09:56 | disposition home or self-care (01) ==
LOC: ED 21:37
DX: T83.091A Other mechanical complication of indwelling urethral catheter, initial encounter (principal); J44.9 Chronic obstructive pulmonary disease, unspecified; Z90.49 Acquired absence of other specified parts of digestive tract; Z98.890 Other specified postprocedural states; Z79.899 Other long term (current) drug therapy
CPT/HCPCS: 51702; 87086; 99281

== ENCOUNTER 2020-09-29 18:10 | Emergency (ER) | payer SELFPAY ==
--- NOTE | 2020-09-29 18:38 | Emergency Department Report ---
ED Male HPI - General Chief complaint: Urogenital-Male Stated complaint: CATH BLOCKED Time Seen by Provider: 09/29/20 18:36 Source: patient Mode of arrival: Ambulatory Limitations: No Limitations - History of Present Illness Complaint: dysuria -: Gradual, days(s) Location: penis Quality: aching, dull Consistency: constant Improves with: urination Worsens with: other (unable to urinate) urinary retention (cadena related). denies: discharge, blood in urine, incontinence, other - Related Data Previous Rx's Medication Instructions Recorded Last Taken Type Tamsulosin HCl [Flomax] 0.4 mg PO DAILY #30 cap.er.24h 11/06/18 Unknown Rx Nitrofurantoin Monohyd/M-Cryst 100 mg PO BID #13 capsule 11/07/18 Unknown Rx [Macrobid 100 mg Capsule] Nitrofurantoin [place]/M-Cryst 100 mg PO Q12HR #14 capsule 04/24/19 Unknown Rx [Macrobid CAP] Tamsulosin [Flomax] 0.4 mg PO QDAY #30 cap 08/17/19 Unknown Rx cephALEXin [Keflex] 500 mg PO Q6HR #28 capsule 08/17/19 Unknown Rx Sulfamethoxazole/Trimethoprim 1 each PO BID #20 tablet 09/29/20 Unknown Rx [Bactrim DS TAB] Allergies Allergy/AdvReac Type Severity Reaction Status Date / Time No Known Allergies Allergy Verified 10/11/18 13:53 ED Review of Systems ROS: Stated complaint: CATH BLOCKED Other details as noted in HPI Comment: All other systems reviewed and negative ED Past Medical Hx - Past Medical History Previous Medical History?: Yes Hx Liver Disease: No Hx Arthritis: No Hx COPD: Yes Additional medical history: urinary retention/ UTI/ etoh abuse/MAYA - Surgical History Past Surgical History?: Yes Hx Appendectomy: Yes Additional Surgical History: Toothe pulled - Social History Smoking Status: Never Smoker - Medications Home Medications: Home Medications Medication Instructions Recorded Confirmed Last Taken Type Tamsulosin HCl [Flomax] 0.4 mg PO DAILY #30 cap.er.24h 11/06/18 Unknown Rx Nitrofurantoin Monohyd/M-Cryst 100 mg PO BID #13 capsule 11/07/18 Unknown Rx [Macrobid 100 mg Capsule] Nitrofurantoin [place]/M-Cryst 100 mg PO Q12HR #14 capsule 04/24/19 Unknown Rx [Macrobid CAP] Tamsulosin [Flomax] 0.4 mg PO QDAY #30 cap 08/17/19 Unknown Rx cephALEXin [Keflex] 500 mg PO Q6HR #28 capsule 08/17/19 Unknown Rx Sulfamethoxazole/Trimethoprim 1 each PO BID #20 tablet 09/29/20 Unknown Rx [Bactrim DS TAB] ED Physical Exam - General Limitations: No Limitations General appearance: alert, in no apparent distress - Head Head exam: Present: atraumatic, normocephalic - Eye Eye exam: Present: normal appearance - ENT ENT exam: Present: mucous membranes moist - Neck Neck exam: Present: normal inspection - Respiratory Respiratory exam: Present: normal lung sounds bilaterally. Absent: respiratory distress - Cardiovascular Cardiovascular Exam: Present: regular rate, normal rhythm. Absent: systolic murmur, diastolic murmur, rubs, gallop - GI/Abdominal GI/Abdominal exam: Present: soft, normal bowel sounds - Rectal Rectal exam: Present: deferred - Extremities Exam Extremities exam: Present: normal inspection - Back Exam Back exam: Present: normal inspection - Neurological Exam Neurological exam: Present: alert, oriented X3 - Psychiatric Psychiatric exam: Present: normal affect, normal mood - Skin Skin exam: Present: warm, dry, intact, normal color. Absent: rash ED Medical Decision Making - Medical Decision Making 55-year-old male presents emerged department with Cadena catheter in for implant which is due for chronic implant plantation due to a genitourinary issue being managed by by urology. Cadena catheter became blocked from unknown etiology we were able to remove the previous Cadena and inserted a new Cadena in and evaluate 800 cc of urine evacuated from the bladder the Cadena was then irrigated with normal saline and proved to be a functional according to normal standards. Mr. Loc Min requested antibiotics which he states were forgotten on last visit which he thinks is the culprit to his issue currently reports no fever, chills, sweats no flank pain feels better and and is very pleased with the result having much relief. He does understand the need to follow-up with his urology specialist and may return him to the emergency department should he feel his condition is reemerging or worsening. Nurse Kay did place the Cadena with no complications Critical care attestation.: If time is entered above; I have spent that time in minutes in the direct care of this critically ill patient, excluding procedure time. ED Disposition Clinical Impression: Cadena catheter problem Disposition: TO HOME OR SELFCARE Is pt being admited?: No Does the pt Need Aspirin: No Condition: Stable Instructions: Indwelling Urinary Catheter Insertion, Indwelling Urinary Catheter Insertion, Care After Prescriptions: Sulfamethoxazole/Trimethoprim [Bactrim DS TAB] 1 each PO BID #20 tablet Referrals: [facility] [Provider Group] - 3-5 Days [facility] [Provider Group] - 3-5 Days [facility] [Outside] - 3-5 Days [facility] [Outside] - 3-5 Days
[2020-09-29] MEDS ORDERED: SODIUM CHLORIDE 0.9% IRR 500 ML BOTTLE IR ONE (22:06)
[2020-09-29] MEDS ORDERED: SODIUM CHLORIDE IRRI 500 ML 500 ML IR ONE (22:07)
== END 2020-09-29 23:05 | disposition home or self-care (01) ==
LOC: ED 18:10
DX: T83.9XXA Unspecified complication of genitourinary prosthetic device, implant and graft, initial encounter (principal); J44.9 Chronic obstructive pulmonary disease, unspecified; Z90.49 Acquired absence of other specified parts of digestive tract; Z98.890 Other specified postprocedural states; Z79.899 Other long term (current) drug therapy; Y83.9 Surgical procedure, unspecified as the cause of abnormal reaction of the patient, or of later complication, without mention of misadventure at the time of the procedure; Y92.89 Other specified places as the place of occurrence of the external cause
CPT/HCPCS: 99282

== ENCOUNTER 2021-01-25 09:29 | Emergency (ER) | payer SELFPAY ==
--- NOTE | 2021-01-25 11:06 | Emergency Department Report ---
HPI - General Chief Complaint: Urogenital-Male Time Seen by Provider: 01/25/21 10:41 - HPI HPI: This is a 56-year-old male presents to the emergency department with complaint of a clogged or malfunctioning Matthew catheter. The patient says that he initially had a Matthew catheter placed "before the pandemic" secondary to urinary retention. He was here 3 months ago, in September, for the same complaint of a clogged or malfunctioning Matthwe catheter. The patient says that the Matthew catheter has not been draining since yesterday afternoon and he has started to develop some lower abdominal and/or suprapubic pain. He has not seen a urologist since the initial Matthew catheter placement secondary to finances and insurance issues. He is a tobacco smoker. He denies any other past medical history. He does not have a primary care physician. He has not taken anything for his symptoms prior to presentation today. ED Past Medical Hx - Past Medical History Hx Liver Disease: No Hx Arthritis: No Hx COPD: Yes Additional medical history: urinary retention/ UTI/ etoh abuse/MAYA - Surgical History Hx Appendectomy: Yes Additional Surgical History: Toothe pulled - Social History Smoking Status: Current Every Day Smoker Substance Use Type: None - Medications Home Medications: Home Medications Medication Instructions Recorded Confirmed Last Taken Type Tamsulosin HCl [Flomax] 0.4 mg PO DAILY #30 cap.er.24h 11/06/18 Unknown Rx Nitrofurantoin Monohyd/M-Cryst 100 mg PO BID #13 capsule 11/07/18 Unknown Rx [Macrobid 100 mg Capsule] Nitrofurantoin [place]/M-Cryst 100 mg PO Q12HR #14 capsule 04/24/19 Unknown Rx [Macrobid CAP] Tamsulosin [Flomax] 0.4 mg PO QDAY #30 cap 08/17/19 Unknown Rx cephALEXin [Keflex] 500 mg PO Q6HR #28 capsule 08/17/19 Unknown Rx Sulfamethoxazole/Trimethoprim 1 each PO BID #14 tablet 01/25/21 Unknown Rx [Bactrim DS TAB] ED Review of Systems ROS: Stated complaint: CATH CHANGE Other details as noted in HPI Comment: All other systems reviewed and negative Constitutional: denies: chills, fever Eyes: denies: eye pain, vision change ENT: denies: ear pain, throat pain Respiratory: denies: cough, shortness of breath Cardiovascular: denies: chest pain, palpitations Gastrointestinal: abdominal pain. denies: vomiting Genitourinary: other (Urinary retention). denies: discharge Musculoskeletal: denies: back pain, arthralgia Skin: denies: rash, lesions Neurological: denies: headache, weakness Physical Exam - Physical Exam Vital Signs: Vital Signs 01/25/21 09:45 Temperature 98.4 F Pulse Rate 85 Respiratory 14 Rate Blood Pressure 162/91 [Left] O2 Sat by Pulse 96 Oximetry Physical Exam: GENERAL: The patient is well-developed well-nourished. HENT: Normocephalic. Atraumatic. Patient has moist mucous membranes. EYES: Extraocular motions are intact. NECK: Supple. Trachea is midline. CHEST/LUNGS: Clear to auscultation. There is no respiratory distress noted. HEART/CARDIOVASCULAR: Regular. There is no tachycardia. There is no murmur. ABDOMEN: Abdomen is soft. Mild lower abdominal/suprapubic tenderness to palpation. Patient has normal bowel sounds. SKIN: Skin is warm and dry. NEURO: The patient is awake, alert, and oriented. The patient is cooperative. Normal speech. MUSCULOSKELETAL: There is no tenderness or deformity. There is no limitation range of motion. ED Course Vital Signs 01/25/21 09:45 Temperature 98.4 F Pulse Rate 85 Respiratory 14 Rate Blood Pressure 162/91 [Left] O2 Sat by Pulse 96 Oximetry ED Medical Decision Making - Lab Data Lab Results 01/25/21 Range/Units 12:15 Urine Color Yellow (Yellow) Urine Turbidity Slightly-cloudy (Clear) Urine pH 7.0 (5.0-7.0) Ur Specific [place] 1.011 (1.003-1.030) Urine Protein 30 mg/dl (Negative) mg/dL Urine Glucose (UA) Neg (Negative) mg/dL Urine Ketones Neg (Negative) mg/dL Urine Blood Lg (Negative) Urine Nitrite Pos (Negative) Urine Bilirubin Neg (Negative) Urine Urobilinogen < 2.0 (<2.0) mg/dL Ur Leukocyte Esterase Lg (Negative) Urine WBC (Auto) 35.0 H (0.0-6.0) /HPF Urine RBC (Auto) > 182.0 (0.0-6.0) /HPF Urine Bacteria (Auto) 4+ (Negative) /HPF - Medical Decision Making This patient presents with a clogged and/or malfunctioning Matthew catheter. The patient has had a Matthew catheter in place for about 1.5 years since he had initial acute urinary retention, as the patient has not followed up with urology. The Matthew catheter was replaced here in the patient put out about 500 cc of cloudy yellow urine. Urinalysis shows a urinary tract infection and some hematuria. Patient is feeling better after the replacement of the Matthew catheter. He was switched to a leg bag and will be discharged home to follow-up outpatient with urology. Vital signs reassuring including being afebrile. Critical Care Time: No Critical care attestation.: If time is entered above; I have spent that time in minutes in the direct care of this critically ill patient, excluding procedure time. ED Disposition Clinical Impression: Urinary retention Obstructed Matthew catheter Qualifiers: Encounter type: initial encounter Qualified Code(s): T83.091A - Other mechanical complication of indwelling urethral catheter, initial encounter UTI (urinary tract infection) Qualifiers: Urinary tract infection type: acute cystitis Hematuria presence: with hematuria Qualified Code(s): N30.01 - Acute cystitis with hematuria Disposition: TO HOME OR SELFCARE Is pt being admited?: No Condition: Stable Instructions: Urinary Tract Infection, Adult, [id number], Indwelling Urinary Catheter Insertion, Care After, Acute Urinary Retention, Male Additional Instructions: Please follow-up with a urologist in the next few days. I have given you a referral for a local urologist, Dr. Winkler. Take all medications as prescribed. Return to the emergency department with any worsening of your symptoms, new or concerning symptoms not addressed during this current emergency department visit, or with any acute distress. Prescriptions: Sulfamethoxazole/Trimethoprim [Bactrim DS TAB] 1 each PO BID #14 tablet Referrals: PRIMARY [facility]D [Primary Care Provider] - 2-3 Days ROCAEL WINKLER MD [Staff Physician] - 2-3 Days Time of Disposition: 13:12
[2021-01-25 12:52] LABS: Bacteria,Urine 4+ /HPF (Negative)
[2021-01-25 12:53] LABS: Bilirubin,Urine NEG (Negative); Blood,Urine LG (Negative); Color,Urine Yellow (Yellow); Urobilinogen,Urine < 2.0 mg/dL (<2.0)
[2021-01-25 12:57] LABS: RBC,Urine > 182.0 /HPF (0.0-6.0)
[2021-01-25 13:47] VITALS: BP 134/86
== END 2021-01-25 13:45 | disposition home or self-care (01) ==
LOC: ED 09:29
DX: T83.098A Other mechanical complication of other urinary catheter, initial encounter (principal); N39.0 Urinary tract infection, site not specified; R33.9 Retention of urine, unspecified; M19.90 Unspecified osteoarthritis, unspecified site; J44.9 Chronic obstructive pulmonary disease, unspecified; F17.200 Nicotine dependence, unspecified, uncomplicated; Z90.49 Acquired absence of other specified parts of digestive tract; Z79.899 Other long term (current) drug therapy; Y92.89 Other specified places as the place of occurrence of the external cause; Y84.6 Urinary catheterization as the cause of abnormal reaction of the patient, or of later complication, without mention of misadventure at the time of the procedure
CPT/HCPCS: 51702; 81001; 87086; 99283

== ENCOUNTER 2021-04-03 08:52 | Emergency (ER) | payer SELFPAY ==
[2021-04-03 09:00] VITALS: BP 172/92
--- NOTE | 2021-04-03 10:01 | Emergency Department Report ---
ED Male HPI - General Chief complaint: Urogenital-Male Stated complaint: WHATLEY BLOCKED Time Seen by Provider: 04/03/21 09:42 Source: patient Mode of arrival: Ambulatory Limitations: No Limitations - History of Present Illness Initial comments: The patient was evaluated in the emergency department for symptoms described in the history of present illness. He/she was evaluated in the context of the global COVID-19 pandemic, which necessitated consideration that the patient might be at risk for infection with the virus that causes COVID-19. Institu tional protocols and algorithms that pertain to the evaluation of patients at risk for COVID-19 are in a state of rapid change based on information released by regulatory bodies including the CDC and federal and state organizations. These policies and algorithms were followed during the patient's care in the emergency department. Please note that these policies, procedures and recommendations changed on a rapid basis. 56-year-old male who frequently visits this emergency room for Whatley catheter concerns. Patient presents today stating that his catheter is clogged. Patient admits to pelvic pressure. Denies any fever chills or hematuria or pus or discharge. Patient reports he has a Whatley catheter due to prostate issues. Patient states he does not have a urologist as he cannot afford 1 and doesn't have insurance. - Related Data Previous Rx's Medication Instructions Recorded Last Taken Type Tamsulosin HCl [Flomax] 0.4 mg PO DAILY #30 cap.er.24h 11/06/18 Unknown Rx Nitrofurantoin Monohyd/M-Cryst 100 mg PO BID #13 capsule 11/07/18 Unknown Rx [Macrobid 100 mg Capsule] Nitrofurantoin [place]/M-Cryst 100 mg PO Q12HR #14 capsule 04/24/19 Unknown Rx [Macrobid CAP] Tamsulosin [Flomax] 0.4 mg PO QDAY #30 cap 08/17/19 Unknown Rx cephALEXin [Keflex] 500 mg PO Q6HR #28 capsule 08/17/19 Unknown Rx Sulfamethoxazole/Trimethoprim 1 each PO BID #14 tablet 01/25/21 Unknown Rx [Bactrim DS TAB] Allergies Allergy/AdvReac Type Severity Reaction Status Date / Time No Known Allergies Allergy Verified 04/03/21 08:55 ED Review of Systems ROS: Stated complaint: WHATLEY BLOCKED Other details as noted in HPI ED Past Medical Hx - Past Medical History Hx Liver Disease: No Hx Arthritis: No Hx COPD: Yes Additional medical history: urinary retention/ UTI/ etoh abuse/MAYA - Surgical History Hx Appendectomy: Yes Additional Surgical History: Toothe pulled - Social History Smoking Status: Current Every Day Smoker Substance Use Type: Alcohol - Medications Home Medications: Home Medications Medication Instructions Recorded Confirmed Last Taken Type Tamsulosin HCl [Flomax] 0.4 mg PO DAILY #30 cap.er.24h 11/06/18 Unknown Rx Nitrofurantoin Monohyd/M-Cryst 100 mg PO BID #13 capsule 11/07/18 Unknown Rx [Macrobid 100 mg Capsule] Nitrofurantoin [place]/M-Cryst 100 mg PO Q12HR #14 capsule 04/24/19 Unknown Rx [Macrobid CAP] Tamsulosin [Flomax] 0.4 mg PO QDAY #30 cap 08/17/19 Unknown Rx cephALEXin [Keflex] 500 mg PO Q6HR #28 capsule 08/17/19 Unknown Rx Sulfamethoxazole/Trimethoprim 1 each PO BID #14 tablet 01/25/21 Unknown Rx [Bactrim DS TAB] ED Physical Exam - General Limitations: No Limitations General appearance: alert, in no apparent distress - Head Head exam: Present: atraumatic, normocephalic - Eye Eye exam: Present: normal appearance - ENT ENT exam: Present: normal external ear exam - Neck Neck exam: Present: normal inspection, full ROM - Respiratory Respiratory exam: Absent: accessory muscle use - Cardiovascular Cardiovascular Exam: Present: regular rate - GI/Abdominal GI/Abdominal exam: Present: soft, distended, tenderness - Rectal Rectal exam: Present: deferred - Extremities Exam Extremities exam: Present: normal inspection - Back Exam Back exam: Present: normal inspection, full ROM - Neurological Exam Neurological exam: Present: alert, oriented X3, normal gait - Psychiatric Psychiatric exam: Present: normal affect, normal mood ED Course Vital Signs 04/03/21 04/03/21 08:56 13:15 Temperature 97.4 F L Pulse Rate 77 Respiratory 20 16 Rate Blood Pressure 172/92 O2 Sat by Pulse 98 100 Oximetry ED Medical Decision Making - Medical Decision Making 56-year-old male who frequently visits this emergency room for Whatley catheter concerns. Patient presents today stating that his catheter is clogged. Patient admits to pelvic pressure. Denies any fever chills or hematuria or pus or discharge. Patient reports he has a Whatley catheter due to prostate issues. Patient states he does not have a urologist as he cannot afford 1 and doesn't have insurance. Orders have been placed for Whatley catheter removal and insertion. Patient is referred to the urologist. Will be placed by nurse. Critical care attestation.: If time is entered above; I have spent that time in minutes in the direct care of this critically ill patient, excluding procedure time. ED Disposition Clinical Impression: Urinary retention Disposition: 01 HOME / SELF CARE / HOMELESS Is pt being admited?: No Does the pt Need Aspirin: No Condition: Stable Instructions: Acute Urinary Retention, Male, [id number] Additional Instructions: Please follow-up with a urologist. Referrals: [facility] [Primary Care Provider] - 3-5 Days [facility] [Provider Group] - 3-5 Days [facility] [Provider Group] - 3-5 Days
== END 2021-04-03 15:42 | disposition home or self-care (01) ==
LOC: ED 08:52
DX: R33.9 Retention of urine, unspecified (principal); J44.9 Chronic obstructive pulmonary disease, unspecified; F17.200 Nicotine dependence, unspecified, uncomplicated; Z90.49 Acquired absence of other specified parts of digestive tract; Z98.890 Other specified postprocedural states
CPT/HCPCS: 99282

== ENCOUNTER 2021-04-27 07:23 | Emergency (ER) | payer OTHER ==
--- NOTE | 2021-04-27 07:57 | Emergency Department Report ---
HPI - General Chief Complaint: Urogenital-Male Time Seen by Provider: 04/27/21 07:54 - HPI HPI: 56-year-old male presents to the emergency department with a complaint of urinary retention. He has a indwelling Matthew catheter that was placed/repl aced about 3 weeks ago when he presented with the same complaints. He says that starting last night the urine greatly decreased into the leg bag, but by this morning he says that it is not draining at all. He has some lower abdominal and/or suprapubic discomfort. He denies any fever, nausea, vomiting, back pain. He does not have a urologist secondary to a lack of insurance and financial issues. He has not taken anything for symptoms prior to presentation today. ED Past Medical Hx - Past Medical History Hx Liver Disease: No Hx Arthritis: No Hx COPD: Yes Additional medical history: urinary retention/ UTI/ etoh abuse/MAYA - Surgical History Hx Appendectomy: Yes Additional Surgical History: Toothe pulled - Social History Smoking Status: Current Every Day Smoker Substance Use Type: Alcohol - Medications Home Medications: Home Medications Medication Instructions Recorded Confirmed Last Taken Type Tamsulosin HCl [Flomax] 0.4 mg PO DAILY #30 cap.er.24h 11/06/18 Unknown Rx Nitrofurantoin Monohyd/M-Cryst 100 mg PO BID #13 capsule 11/07/18 Unknown Rx [Macrobid 100 mg Capsule] Nitrofurantoin [place]/M-Cryst 100 mg PO Q12HR #14 capsule 04/24/19 Unknown Rx [Macrobid CAP] Tamsulosin [Flomax] 0.4 mg PO QDAY #30 cap 08/17/19 Unknown Rx cephALEXin [Keflex] 500 mg PO Q6HR #28 capsule 08/17/19 Unknown Rx Sulfamethoxazole/Trimethoprim 1 each PO BID #14 tablet 04/27/21 Unknown Rx [Bactrim DS TAB] ED Review of Systems ROS: Stated complaint: CATHETER CLOGGED Other details as noted in HPI Comment: All other systems reviewed and negative Constitutional: denies: chills, fever Eyes: denies: eye pain, vision change ENT: denies: ear pain, throat pain Respiratory: denies: cough, shortness of breath Cardiovascular: denies: chest pain, palpitations Gastrointestinal: abdominal pain. denies: vomiting Genitourinary: other (urinary retention). denies: hematuria, discharge Musculoskeletal: denies: back pain, arthralgia Skin: denies: rash, lesions Neurological: denies: headache, weakness Physical Exam - Physical Exam Vital Signs: Vital Signs 04/27/21 07:30 Temperature 97.5 F L Pulse Rate 84 Respiratory 19 Rate Blood Pressure 190/95 O2 Sat by Pulse 97 Oximetry Physical Exam: GENERAL: The patient is well-developed well-nourished. HENT: Normocephalic. Atraumatic. Patient has moist mucous membranes. EYES: Extraocular motions are intact. NECK: Supple. Trachea is midline. CHEST/LUNGS: Clear to auscultation. There is no respiratory distress noted. HEART/CARDIOVASCULAR: Regular. There is no tachycardia. There is no murmur. ABDOMEN: Abdomen is soft. Mild lower abdominal/suprapubic tenderness to palpation. No guarding. Patient has normal bowel sounds. SKIN: Skin is warm and dry. Patient has multiple small nontender, mobile scrotal lumps. NEURO: The patient is awake, alert, and oriented. The patient is cooperative. The patient has no focal neurologic deficits. Normal speech. MUSCULOSKELETAL: There is no tenderness or deformity. There is no limitation range of motion. BACK: No CVA tenderness to palpation. : Indwelling Matthew catheter in place. ED Course Vital Signs 04/27/21 07:30 Temperature 97.5 F L Pulse Rate 84 Respiratory 19 Rate Blood Pressure 190/95 O2 Sat by Pulse 97 Oximetry ED Medical Decision Making - Lab Data Lab Results 04/27/21 Range/Units Unknown Urine Color Yellow (Yellow) Urine Turbidity Cloudy (Clear) Urine pH 7.0 (5.0-7.0) Ur Specific [place] 1.009 (1.003-1.030) Urine Protein 100 mg/dl (Negative) mg/dL Urine Glucose (UA) Neg (Negative) mg/dL Urine Ketones 20 (Negative) mg/dL Urine Blood Lg (Negative) Urine Nitrite Pos (Negative) Urine Bilirubin Neg (Negative) Urine Urobilinogen < 2.0 (<2.0) mg/dL Ur Leukocyte Esterase Lg (Negative) Urine WBC (Auto) 39.0 H (0.0-6.0) /HPF Urine RBC (Auto) 96.0 (0.0-6.0) /HPF Urine Bacteria (Auto) 1+ (Negative) /HPF Urine Mucus Few /HPF - Medical Decision Making This patient presents with a complaint of urinary retention as the Matthew cathet er, that is in place, is no longer draining. He has some mild lower abdominal/suprapubic discomfort and tenderness to palpation. The Matthew catheter was removed and replaced. The patient began draining urine and appears to have put out about 500 cc of urine thus far. Urinalysis shows a urinary tract infection with about 40 WBCs and hematuria. The patient is feeling improved after Matthew catheter replacement. Initially the patient presented with very elevated blood pressure, but it came down to a more reasonable level after he was able to void. The rest the vital signs are reassuring including being afebrile. He has been placed on antibiotics and given an outpatient referral for urology. The nontender, mobile, scrotal lesion seen are chronic per the patient I do not appear consistent with herpes, or any obvious STD. He will return to the emergency department with any worsening of his symptoms or with any acute distress. Critical Care Time: No Critical care attestation.: If time is entered above; I have spent that time in minutes in the direct care of this critically ill patient, excluding procedure time. ED Disposition Clinical Impression: Urinary retention UTI (urinary tract infection) Qualifiers: Urinary tract infection type: acute cystitis Hematuria presence: with hematuria Qualified Code(s): N30.01 - Acute cystitis with hematuria Obstructed Matthew catheter Qualifiers: Encounter type: initial encounter Qualified Code(s): T83.091A - Other mechanical complication of indwelling urethral catheter, initial encounter Hematuria Qualifiers: Hematuria type: unspecified type Qualified Code(s): R31.9 - Hematuria, unspecified Hypertension Qualifiers: Hypertension type: primary hypertension Qualified Code(s): I10 - Essential (primary) hypertension Disposition: 01 HOME / SELF CARE / HOMELESS Is pt being admited?: No Condition: Stable Instructions: Indwelling Urinary Catheter Care, Adult, Urinary Tract Infection, Adult, Hypertension, Adult, Hematuria, Adult, Hypertension (ED) Additional Instructions: Please follow-up with a urologist in the next few days. I have given you a referral for a local urologist, Dr. Winkler. Take all medications as prescribed. Please try to stay away from foods that are high in salt and caffeinated products. Keep a blood pressure log. Return to the emergency department with any worsening of your symptoms, new or concerning symptoms not addressed during this current emergency department visit, or with any acute distress. Prescriptions: Sulfamethoxazole/Trimethoprim [Bactrim DS TAB] 1 each PO BID #14 tablet Referrals: ROCAEL WINKLER MD [Staff Physician] - 2-3 Days Time of Disposition: 09:07
[2021-04-27 08:50] LABS: Bacteria,Urine 1+ /HPF (Negative); Bilirubin,Urine NEG (Negative); Blood,Urine LG (Negative); Color,Urine Yellow (Yellow); Mucus,Urine FEW /HPF; Urobilinogen,Urine < 2.0 mg/dL (<2.0)
[2021-04-27 09:24] VITALS: BP 155/89
== END 2021-04-27 09:28 | disposition home or self-care (01) ==
LOC: ED 07:23
DX: R33.9 Retention of urine, unspecified (principal); J44.9 Chronic obstructive pulmonary disease, unspecified; F17.200 Nicotine dependence, unspecified, uncomplicated
CPT/HCPCS: 51702; 81001; 99283

== ENCOUNTER 2021-06-18 12:30 | Emergency (ER) | payer SELFPAY ==
[2021-06-18] MEDS ORDERED: cephALEXin 500 MG CAP PO ONE (13:33)
--- NOTE | 2021-06-18 13:33 | Emergency Department Report ---
ED Male HPI - General Chief complaint: Tube Replacement Stated complaint: CLOGGED CATH Time Seen by Provider: 06/18/21 13:20 Source: patient Mode of arrival: Ambulatory Limitations: No Limitations - History of Present Illness Initial comments: Chief complaint: "I am backed up." HPI: This is a 56-year-old male with history of chronic indwelling Matthew catheter, GI bleed, sepsis, COPD who presents with decreased urine output, cloudy urine. Patient also has irritation at the Matthew site. He denies fever, back pain, abdominal pain. As a teenager he has had multiple procedures. This gentleman does not have healthcare insurance. He is unable to afford outpatient urological care. MD Complaint: other (Decreased urine output, cloudy urine, Matthew catheter irritation) -: Gradual, days(s) (Since last night) Severity scale (0 -10): 5 Quality: burning Consistency: constant Improves with: none Worsens with: none denies other symptoms - Related Data Previous Rx's Medication Instructions Recorded Last Taken Type Tamsulosin HCl [Flomax] 0.4 mg PO DAILY #30 cap.er.24h 11/06/18 Unknown Rx Nitrofurantoin Monohyd/M-Cryst 100 mg PO BID #13 capsule 11/07/18 Unknown Rx [Macrobid 100 mg Capsule] Nitrofurantoin [place]/M-Cryst 100 mg PO Q12HR #14 capsule 04/24/19 Unknown Rx [Macrobid CAP] Tamsulosin [Flomax] 0.4 mg PO QDAY #30 cap 08/17/19 Unknown Rx cephALEXin [Keflex] 500 mg PO Q6HR #28 capsule 08/17/19 Unknown Rx Sulfamethoxazole/Trimethoprim 1 each PO BID #14 tablet 04/27/21 Unknown Rx [Bactrim DS TAB] cephALEXin [Keflex] 500 mg PO QID 7 Days #28 capsule 06/18/21 Unknown Rx Allergies Allergy/AdvReac Type Severity Reaction Status Date / Time No Known Allergies Allergy Verified 04/03/21 08:55 ED Review of Systems ROS: Stated complaint: CLOGGED CATH Other details as noted in HPI Comment: All other systems reviewed and negative Constitutional: denies: chills Respiratory: denies: cough Gastrointestinal: denies: abdominal pain Musculoskeletal: denies: back pain ED Past Medical Hx - Past Medical History Previous Medical History?: Yes Hx Liver Disease: No Hx Arthritis: No Hx COPD: Yes Additional medical history: urinary retention/ UTI/ etoh abuse/MAYA - Surgical History Past Surgical History?: Yes Hx Appendectomy: Yes Additional Surgical History: Toothe pulled - Social History Smoking Status: Current Every Day Smoker Substance Use Type: Alcohol - Medications Home Medications: Home Medications Medication Instructions Recorded Confirmed Last Taken Type Tamsulosin HCl [Flomax] 0.4 mg PO DAILY #30 cap.er.24h 11/06/18 Unknown Rx Nitrofurantoin Monohyd/M-Cryst 100 mg PO BID #13 capsule 11/07/18 Unknown Rx [Macrobid 100 mg Capsule] Nitrofurantoin [place]/M-Cryst 100 mg PO Q12HR #14 capsule 04/24/19 Unknown Rx [Macrobid CAP] Tamsulosin [Flomax] 0.4 mg PO QDAY #30 cap 08/17/19 Unknown Rx cephALEXin [Keflex] 500 mg PO Q6HR #28 capsule 08/17/19 Unknown Rx Sulfamethoxazole/Trimethoprim 1 each PO BID #14 tablet 04/27/21 Unknown Rx [Bactrim DS TAB] cephALEXin [Keflex] 500 mg PO QID 7 Days #28 capsule 06/18/21 Unknown Rx ED Physical Exam - General Limitations: No Limitations General appearance: alert, in no apparent distress - Head Head exam: Present: atraumatic, normocephalic - Eye Eye exam: Present: normal appearance - ENT ENT exam: Present: mucous membranes moist - Neck Neck exam: Present: normal inspection, full ROM - Respiratory Respiratory exam: Present: normal lung sounds bilaterally. Absent: respiratory distress, wheezes, rales, rhonchi - Cardiovascular Cardiovascular Exam: Present: regular rate, normal rhythm, normal heart sounds. Absent: systolic murmur, diastolic murmur, rubs, gallop - GI/Abdominal GI/Abdominal exam: Present: soft, normal bowel sounds. Absent: distended, tenderness, guarding, rebound - Rectal Rectal exam: Present: deferred - exam: Present: normal inspection, other (Matthew catheter in place leg bag contains cloudy urine). Absent: testicular tenderness, urethral discharge, scrotal swelling, vertical testicular lie, circumcision - Extremities Exam Extremities exam: Present: normal inspection - Back Exam Back exam: Present: normal inspection - Neurological Exam Neurological exam: Present: alert, oriented X3 - Psychiatric Psychiatric exam: Present: normal affect, normal mood - Skin Skin exam: Present: warm, dry, intact, normal color. Absent: rash ED Course - Reevaluation(s) Reevaluation #1: 06/18/21 14:10 16 [place] Matthew catheter easily inserted by nurse senior stereo compiler team lead. Immediately 500 mL of urine was expressed. ED Medical Decision Making - Medical Decision Making 1. Acute urinary tract section due to obstructed Matthew catheter: Matthew catheter replaced by senior stereo compiler team lead. 2. Complicated UTI prescribe cephalexin refer to outpatient physician referred to urologist Critical care attestation.: If time is entered above; I have spent that time in minutes in the direct care of this critically ill patient, excluding procedure time. ED Disposition Clinical Impression: Obstructed Matthew catheter, Acute urinary retention, Complicated urinary tract infection Disposition: 01 HOME / SELF CARE / HOMELESS Is pt being admited?: No Does the pt Need Aspirin: No Condition: Stable Instructions: Acute Urinary Retention, Male, [id number], Urinary Tract Infection, Adult Prescriptions: cephALEXin [Keflex] 500 mg PO QID 7 Days #28 capsule Referrals: ROCAEL LUA MD [Staff Physician] - 3-5 Days SURESH KATZ MD [Staff Physician] - 3-5 Days
[2021-06-18] MEDS ORDERED: IBUPROFEN 800 MG TAB PO ONE (13:35)
[2021-06-18 14:25] VITALS: BP 157/84
== END 2021-06-18 15:27 | disposition home or self-care (01) ==
LOC: ED 12:30
DX: R33.9 Retention of urine, unspecified (principal); N39.0 Urinary tract infection, site not specified; T83.098A Other mechanical complication of other urinary catheter, initial encounter; J44.9 Chronic obstructive pulmonary disease, unspecified; F17.200 Nicotine dependence, unspecified, uncomplicated; Y84.6 Urinary catheterization as the cause of abnormal reaction of the patient, or of later complication, without mention of misadventure at the time of the procedure
CPT/HCPCS: 51702; 99282

== ENCOUNTER 2022-02-22 10:30 | Outpatient (CLI) | payer OTHER ==
--- NOTE | 2022-02-22 11:50 | XRay Report ---
Lumbar spine 3 views INDICATION: Back pain FINDINGS: Mild curvature of the spine. Atherosclerotic calcification throughout the aorta. Facet sanchez ges at L4-5 and L5-S1 Signer Name: Piyush Benjamin MD Signed: 02/22/2022 11:45 AM Workstation Name: [id number]
== END 2022-02-22 10:31 | disposition home or self-care (01) ==
LOC: XRAY 10:30
PROVIDERS: ATTEND Internal Medicine
DX: M47.816 Spondylosis without myelopathy or radiculopathy, lumbar region (principal); I70.0 Atherosclerosis of aorta
CPT/HCPCS: 72100